=== PATIENT | male | born 1945 | race Caucasian/White ===

== ENCOUNTER → 2018-02-27 08:30 | Outpatient (CLI) | payer MEDICARE, BC, SELFPAY ==
--- NOTE | 2018-02-27 08:35 | ECHOCS_ITS ---
Reason For Study: Murmur Procedure This was a 2D Doppler, Color Flow transthoracic echocardiogram. Exam performed in department. Left Ventricle Normal LV size. Moderate concentric left ventricular hypertrophy. Left ventricular systolic function is normal. The estimated ejection fraction is 60 %. Stage 1 diastolic dysfunction. No regional wall motion abnormalities noted. Right Ventricle Normal RV size. Normal systolic function. Atria Normal left atrium. Normal right atrium. Mitral Valve Normal mitral valve. Tricuspid Valve Normal tricuspid valve. Mild (1+) tricuspid valve insufficiency. Pulmonary artery systolic pressure is 33 mmHg. Aortic Valve Trisinus/trileaflet aortic valve. Mild focal aortic valve calcification. Peak aortic valve gradient 39 mmHg. Mean aortic valve gradient 25 mmHg. Mild aortic stenosis. Calculated aortic valve area (continuity equation) is 1.3 cm2. Pulmonic Valve Normal pulmonic valve. Great Vessels Normal aortic root. The pulmonary artery is normal size. Normal inferior vena cava. Pericardium/Pleural No pericardial effusion. Medication Definity0.2ml given slow IV push to enhance endocardial definition. MMode/2D Measurements & Calculations LVIDd: 4.3 cm IVSd: 1.5 cm LVOT diam: 2.1 cm LVIDs: 2.8 cm LVPWd: 1.4 cm LVOT area: 3.4 cm2 RVDd: 3.7 cm FS: 34.4 % Ao root diam: 3.4 cm LAV(MOD-bp): 34.6 ml LVAd ap4: 34.0 cm2 LAV(MOD-bp) Indexed: 15.2 ml/m2 EDV(MOD-sp4): 101.9 ml LAV(MOD-sp2): 35.0 ml EDV(sp4-el): 108.0 ml LAV(MOD-sp4): 34.5 ml LVAs ap4: 20.1 cm2 ESV(MOD-sp4): 48.0 ml ESV(sp4-el): 48.3 ml EF(MOD-sp4): 52.9 % EF(sp4-el): 55.2 % SV(MOD-sp4): 53.8 ml SV(sp4-el): 59.7 ml LA A4 area: 14.7 cm2 RA A4 area: 14.6 cm2 Doppler Measurements & Calculations MV E max jose juan: 60.3 cm/sec Lat Peak E' Jose Juan: 7.1 cm/sec Med Peak E' Jose Juan: 4.5 cm/sec MV A max jose juan: 98.8 cm/sec E/E' lat: 8.5 E/E' med: 13.5 MV E/A: 0.61 Ao V2 max: 314.8 cm/sec LV V1 max: 123.2 cm/sec SV(LVOT): 100.8 ml Ao max P.7 mmHg LV V1 max P.1 mmHg Ao V2 mean: 242.0 cm/sec LV V1 mean P.7 mmHg Ao mean P.3 mmHg LV V1 mean: 91.2 cm/sec Ao V2 VTI: 70.4 cm LV V1 VTI: 29.5 cm EDUAR(I,D): 1.4 cm2 EDUAR(V,D): 1.3 cm2 PA V2 max: 108.8 cm/sec TR max jose juan: 271.2 cm/sec TR max P.4 mmHg Interpretation Summary Normal LV size. Moderate concentric left ventricular hypertrophy. Left ventricular systolic function is normal. The estimated ejection fraction is 60 %. Stage 1 diastolic dysfunction. Mild focal aortic valve calcification. Mild aortic stenosis. Calculated aortic valve area (continuity equation) is 1.3 cm2. Contrast injection was performed. Ordering Physician: Juan Kumari Referring Physician: Juan Kumari Performed By: Maren Atkins, ELIJAH, RVT
== END ==
PROVIDERS: Family Provider Family Medicine; PCP Family Medicine; Referring Provider Internal Medicine Cardiovascular Disease; Visit Provider Internal Medicine Cardiovascular Disease
DX: R07.9 Chest pain, unspecified (principal)
CPT/HCPCS: 93306; Q9957; A4216; C8929

== ENCOUNTER 2018-03-02 09:40 | Day surgery (SDC) | payer MEDICARE, BC, SELFPAY ==
[2018-02-27 16:00] LABS: Hematocrit 43.7 % (40-54); Hemoglobin 14.9 g/dl (13.0-16.5); Mean Corp Hgb Conc 34.1 g/gl (32-36); Mean Platelet Vol. 8.8 fl (6.2-12.0); Platelet Count 302 K/mm3 (150-450); RBC Distribution Width CV 13.1 % (11.6-14.6); RBC Distribution Width SD 43.8 fl (35.1-43.9); Red Blood Count 4.65 M/mm3 (4.6-6.2); Scan Indicated on CBC? Y/N NO
[2018-02-27 16:07] LABS: Anion Gap 7 (5-15); BUN 15 mg/dL (7-18); BUN/Creat Ratio 15.7 RATIO (10-20); Calcium,Total 8.5 mg/dL (8.5-10.1); Chloride 104 mmol/L (98-107); Creatinine, Serum 0.96 mg/dL (0.70-1.30); EST Glomerular Filtration Rate 83 mL/min (>60); Est Glom Filt Rate - Afr Amer 100 mL/min (>60); Estimated Creatinine Clearance 76.26 ml/min; Glucose 110 mg/dL (74-106); Potassium 3.9 mmol/L (3.5-5.1); Sodium Level 143 mmol/L (136-145)
--- NOTE | 2018-03-02 11:16 | CL.IE_ITS ---
Patient: RAVIN JONES Study Date: 03/02/2018 Performing: Juan Kumari MD : 1945 Age: 72 Gender: male PROCEDURES PERFORMED [id number] OF LOOP RECORDER INDICATIONS Syncope PROCEDURE DETAILS The patient was brought to the Catheterization Lab in the postabsorptive nonsedated state. Informed consent was obtained prior to the procedure. Local anesthetic was given subcutaneously to the left ayala bclavian region with Lidocaine 2%. Incision was made to the left subclavicular area. ICM Loop Recorde r was removed. Subcutaneous closure was completed with 3-0 Vicryl. Skin closure was completed with 4- 0 Vicryl. The patient tolerated the procedure well. Estimated Blood Loss: < 10 mls IMPLANTED / EX-PLANTED DEVICES DEVICE PARAMETERS CONCLUSIONS / RECOMMENDATIONS Device Conclusions: Successful removal of a patient activated loop recorder. Device Recommendations: Follow up with Primary Care Physician PROCEDURE MEDICATIONS Versed 1 mg IV Fentanyl 25 mcg IV Oxygen: 2 L/min via nasal cannula Signed By Juan Kumari MD On 03/02/2018 11:16:08 Juan Kumari MD
== END 2018-03-02 12:30 | disposition home or self-care (01) ==
LOC: CLSP 09:42
PROVIDERS: Family Provider Family Medicine; PCP Family Medicine; Referring Provider Internal Medicine Cardiovascular Disease; Visit Provider Internal Medicine Cardiovascular Disease
DX: I35.0 Nonrheumatic aortic (valve) stenosis (principal); I44.7 Left bundle-branch block, unspecified; I25.10 Atherosclerotic heart disease of native coronary artery without angina pectoris; G47.33 Obstructive sleep apnea (adult) (pediatric); R01.1 Cardiac murmur, unspecified; I48.92 Unspecified atrial flutter; I48.0 Paroxysmal atrial fibrillation; Z87.09 Personal history of other diseases of the respiratory system; Z95.9 Presence of cardiac and vascular implant and graft, unspecified; Z79.82 Long term (current) use of aspirin; Z79.899 Other long term (current) drug therapy; Z87.891 Personal history of nicotine dependence
CPT/HCPCS: 33284; 36415; 80048; 85027; 99152; 99153; J7040

== ENCOUNTER → 2018-04-29 09:21 | Outpatient (CLI) | payer MEDICARE, BC, SELFPAY ==
--- NOTE | 2018-04-29 09:26 | RAD_ITS ---
STUDY: X-RAY - RIGHT HAND REASON FOR EXAM: Male, 72 years old. Laceration secondary to injury of the right third digit. TECHNIQUE: 3 view(s) of the hand. COMPARISON: None. FINDINGS: Normal radiocarpal articulation. Normal distal radioulnar joint. Normal visualized carpal bones. Normal carpal articulations Normal carpometacarpal articulation of the thumb. Normal second through fifth carpometacarpal joints. Normal metacarpi. Normal metacarpophalangeal joint of the thumb. Normal interphalangeal joint of the thumb. Normal proximal and distal phalanges of the thumb. Normal metacarpophalangeal joints of the second through fifth fingers. Normal proximal and distal interphalangeal joints of the second through fifth fingers. Normal phalanges of the second through fifth fingers. Soft tissue laceration overlying the distal phalanx of the third digit. RAD/Hand Min 3 Views IMPRESSION: Soft tissue laceration overlying the distal phalanx of the third digit. No radiopaque foreign body is seen. Electronically Signed: Girma De La Garza MD at 9:57 EST Tel [phone], Service support ,
--- OUTSIDE RECORDS SUMMARY | 2018-06-24 16:42 | XMS RPT_ITS ---
:1945 Author Organization [place] Support Name Relationship Address Phone MANAS PATIÑO Unavailable [address] + [place] [address] SIDLE TRANSIT Unavailable [address] + [place] [address] [address] JULIO [address] + [place] [address] MANAS PATIÑO Unavailable [address] + [place] [address] SIDLE TRANSIT Unavailable [address] + [place] [address] [address]ANY[address] JULIO [address] + [place] [address] MANAS PATIÑO Unavailable [address] + [place] [address] SIDLE TRANSIT Unavailable [address] + [place] [address] DANYA JULIO [address] + [place] [address] MANAS PATIÑO Unavailable Unavailable + SIDLE TRANSIT Unavailable [address] + [place] [address] [address]ANY[address] JULIO [address] + [place] [address] MANAS PATIÑO Unavailable [address] + [place] [address] SIDLE TRANSIT Unavailable [address] + [place] [address] [address] J[address] + [place] [address] SIDLE TRANSIT Unavailable [address] + [place] [address] [address] J[address] + [place] [address] SIDLE TRANSIT Unavailable [address] + [place] [address] [address] + [place] [address] SIDLE TRANSIT Unavailable [address] + [place] [address] [address] + [place] [address] Care Team Providers Name Role Phone Nola Quintana Attending Unavailable Vidhya Vu Attending Unavailable [place], Orlando Attending Unavailable Anthony Rust Referring Unavailable Anthony Rust Primary Care Unavailable [place], Juan Attending Unavailable [place], [place] Referring Unavailable Anthony Rust Primary Care Unavailable [place], Juan Attending Unavailable Anthony Rust Primary Care Unavailable [place], Orlando Referring Unavailable [place], Juan Attending Unavailable [place], Juan Referring Unavailable [place], Juan Attending Unavailable [place], [place] Referring Unavailable Tono Michael Attending Unavailable Tono Michael Referring Unavailable Anthony Rust Primary Care Unavailable PROBLEMS PROBLEMS DATE TYPE CONDITION / CODE ATTENDING STATUS SOURCE 04/29/2018 Unknown S61.218A - Laceration Tono Michael Active [facility] without foreign body Community of other [facility] without damage to Repository nail, initial encounter / S61.218A(ICD-10) 03/02/2018 Unknown Z95.9 - Presence of [place], [place] Active [facility] cardiac and vascular Community implant and graft, Hospital unspecified / Repository Z95.9(ICD-10) 03/25/2018 Unknown R55 - Syncope and [place], Juan Active [facility] collapse / Community R55(ICD-10) Hospital Repository 03/24/2018 Unknown R07.9 - Chest pain, [place], [place] Active [facility] unspecified / Community R07.9(ICD-10) Hospital Repository 02/20/2018 Unknown I35.0 - Nonrheumatic [place], [place] Active [facility] aortic (valve) Community stenosis / Hospital I35.0(ICD-10) Repository 02/20/2018 Unknown I44.7 - Left Juan Kumari Active [facility] bundle-branch block, Community unspecified / Hospital I44.7(ICD-10) Repository 02/20/2018 Unknown I25.10 - [place], [place] Active [facility] Atherosclerotic heart Community disease of [facility] coronary artery Repository without angina pectoris / I25.10(ICD-10) PROCEDURES PROCEDURES No Procedure Records FoundRESULTS RESULTS HAND MIN 3 VIEWS Observed: 04/29/2018 Status: F Source: OMI 9:27 AM [facility] REPOSITORY [facility] Imaging Services [address] [place] [address] Hand Min 3 Views MR#: [id number] Acct: [id number] Name: RAVIN JONES Rep #: [id number] : 1945 M 72 From: Girma De La Garza MD PCP: Anthony Rust MD Status: REG CLI Study: Hand Min 3 Views Date of Exam: 04/29/18 Exam# [id number] Ordering Dr: Tono Michael ELECTRONIC OPERATOR-C STUDY: X-RAY - RIGHT HAND REASON FOR EXAM: Male, 72 years old. Laceration secondary to injury of the right third digit. TECHNIQUE: 3 view(s) of the hand. COMPARISON: None. FINDINGS: Normal radiocarpal articulation. Normal distal radioulnar joint. Normal visualized carpal bones. Normal carpal articulations Normal carpometacarpal articulation of the thumb. Normal second through fifth carpometacarpal joints. Normal metacarpi. Normal metacarpophalangeal joint of the thumb. Normal interphalangeal joint of the thumb. Normal proximal and distal phalanges of the thumb. Normal metacarpophalangeal joints of the second through fifth fingers. Normal proximal and distal interphalangeal joints of the second through fifth fingers. Normal phalanges of the second through fifth fingers. Soft tissue laceration overlying the distal phalanx of the third digit. RAD/Hand Min 3 Views IMPRESSION: Soft tissue laceration overlying the distal phalanx of the third digit. No radiopaque foreign body is seen. Electronically Signed: Girma De La Garza MD at 9:57 EST Tel [phone], Service support , CC: JUANPABLO Michael; Anthony Rust MD [employer]: Signed CBC-COMPLETE BLOOD CNT Collected: 03/02/2018 Status: F Source: OMI NO DIFF 11:30 AM [facility] REPOSITORY TYPE CODE TESTS RESULT OUT OF RANGE REFERENCE UNITS LAB L100.1000 4.4-11.0 K/mm3 Normal WBC 5.0 LAB L100.1200 4.6-6.2 M/mm3 Normal RBC 4.65 LAB L100.1300 13.0-16.5 g/dl Normal HGB 14.9 LAB L100.1400 40-54 % Normal HCT 43.7 LAB L100.1500 80-94 fL Normal MCV 94.0 LAB L100.1600 27.0-32.0 pg Normal MCH 32.0 LAB L100.1700 32-36 g/gl Normal MCHC 34.1 LAB L100.1810 11.6-14.6 % Normal RDW CV 13.1 LAB L100.1820 35.1-43.9 fl Normal RDW SD 43.8 LAB L100.1900 150-450 K/mm3 Normal PLT 302 LAB L100.2000 6.2-12.0 fl Normal MPV 8.8 Performed By: #### L100.0500 #### [facility] [place], [address] BASIC METABOLIC Collected: 03/02/2018 Status: F Source: [facility]MI PROFILE (BMP) 11:30 AM [facility] REPOSITORY TYPE CODE TESTS RESULT OUT OF RANGE REFERENCE UNITS LAB L501.0100 74-106 mg/dL High GLU 110 Result Comment: Fasting Glucose result from 100 to 125 mg/dL suggests IMPAIRED HOMEOSTASIS per A.D.A. criteria. Please note revised GLUCOSE reference range effective 2017. LAB L501.1000 7-18 mg/dL Normal BUN 15 LAB L501.1100 0.70-1.30 mg/dL Normal CREAT,SERUM 0.96 Result Comment: The validity of the calculated GFR AND GFRAA in patients over 70 years has not been determined. Clinical correlation is essential. LAB L501.1110 >60 mL/min Normal EST GFR 83 Result Comment: Non- GFR Calc LAB L501.1115 >60 mL/min Normal EST GFR - AA 100 Result Comment: GFR Calc LAB L501.1255 ml/min Normal Estimated CRCL 76.26 LAB L501.1300 10-20 RATIO Normal BUN/CRE 15.7 LAB L501.2200 8.5-10 mg/dL Normal .1 CA 8.5 LAB L501.5300 136-14 mmol/L Normal 5 NA 143 LAB L501.5600 3.5-5. mmol/L Normal 1 K 3.9 LAB L501.5900 98-107 mmol/L Normal CL 104 LAB L501.6100 21.0-3 mmol/L Normal 2.0 CO2 32.0 LAB L501.6200 5-15 Normal GAP 7 Performed By: #### L500.2500 #### [facility] [address] [facility] [place], [address] ECHO, COMPLETE W/ Observed: 02/27/2018 Status: F Source: FRASER CONTRAST 5:01 PM [facility] REPOSITORY [facility] Cardiovascular Services [address] [place] [address] Echo Complete W/ Contrast 02/27/18 0856 MR#: [id number] Acct: [id number] Name: RAVIN JONES Rep #: [id number] : 1945 72 From: Juan Kumari MD Attending Dr: Juan Kumari MD Status: REG CLI Ordering Dr: Juan Kumari MD Date: 02/27/18 Location: [facility] Sex: M C Admitted: Reason For Study: Murmur Procedure This was a 2D Doppler, Color Flow transthoracic echocardiogram. Exam performed in department. Left Ventricle Normal LV size. Moderate concentric left ventricular hypertrophy. Left ventricular systolic function is normal. The estimated ejection fraction is 60 %. Stage 1 diastolic dysfunction. No regional wall motion abnormalities noted. Right Ventricle Normal RV size. Normal systolic function. Atria Normal left atrium. Normal right atrium. Mitral Valve Normal mitral valve. Tricuspid Valve Normal tricuspid valve. Mild (1+) tricuspid valve insufficiency. Pulmonary artery systolic pressure is 33 mmHg. Aortic Valve Trisinus/trileaflet aortic valve. Mild focal aortic valve calcification. Peak aortic valve gradient 39 mmHg. Mean aortic valve gradient 25 mmHg. Mild aortic stenosis. Calculated aortic valve area (continuity equation) is 1.3 cm2. Pulmonic Valve Normal pulmonic valve. Great Vessels Normal aortic root. The pulmonary artery is normal size. Normal inferior vena cava. Pericardium/Pleural No pericardial effusion. Medication Definity0.2ml given slow IV push to enhance endocardial definition. MMode/2D Measurements AND Calculations LVIDd: 4.3 cm IVSd: 1.5 cm LVOT diam: 2.1 cm LVIDs: 2.8 cm LVPWd: 1.4 cm LVOT area: 3.4 cm2 RVDd: 3.7 cm FS: 34.4 % Ao root diam: 3.4 cm LAV(MOD-bp): 34.6 ml LVAd ap4: 34.0 cm2 LAV(MOD-bp) Indexed: 15.2 ml/m2 EDV(MOD-sp4): 101.9 ml LAV(MOD-sp2): 35.0 ml EDV(sp4-el): 108.0 ml LAV(MOD-sp4): 34.5 ml LVAs ap4: 20.1 cm2 ESV(MOD-sp4): 48.0 ml ESV(sp4-el): 48.3 ml EF(MOD-sp4): 52.9 % EF(sp4-el): 55.2 % SV(MOD-sp4): 53.8 ml SV(sp4-el): 59.7 ml LA A4 area: 14.7 cm2 RA A4 area: 14.6 cm2 Doppler Measurements AND Calculations MV E max jose juan: 60.3 cm/sec Lat Peak E' Jose Juan: 7.1 cm/sec Med Peak E' Jose Juan: 4.5 cm/sec MV A max jose juan: 98.8 cm/sec E/E' lat: 8.5 E/E' med: 13.5 MV E/A: 0.61 Ao V2 max: 314.8 cm/sec LV V1 max: 123.2 cm/sec SV(LVOT): 100.8 ml Ao max P.7 mmHg LV V1 max P.1 mmHg Ao V2 mean: 242.0 cm/sec LV V1 mean P.7 mmHg Ao mean P.3 mmHg LV V1 mean: 91.2 cm/sec Ao V2 VTI: 70.4 cm LV V1 VTI: 29.5 cm EDUAR(I,D): 1.4 cm2 EDUAR(V,D): 1.3 cm2 PA V2 max: 108.8 cm/sec TR max jose juan: 271.2 cm/sec TR max P.4 mmHg Interpretation Summary Normal LV size. Moderate concentric left ventricular hypertrophy. Left ventricular systolic function is normal. The estimated ejection fraction is 60 %. Stage 1 diastolic dysfunction. Mild focal aortic valve calcification. Mild aortic stenosis. Calculated aortic valve area (continuity equation) is 1.3 cm2. Contrast injection was performed. Ordering Physician: Juan Kumari Referring Physician: Juan Kumari Performed By: Manas Atkins, ELIJAH, RVT 02/27/18 1700 Date Juan Kumari MD CC: Juan Kumari MD; Anthony Rust MD Date Dictated: 02/27/18 0856 Date Transcribed: 02/27/181699 [employer]: Signed CARDIOLOGY VISIT Observed: 02/20/2018 Status: F Source: FRASER REPORT 3:23 PM [facility] REPOSITORY [facility] [address] [place] [address] OFFICE VISIT Date of Service: 02/20/18 MR#: [id number] Acct: [id number] Name: RAVIN JONES Rep #: [id number] : 1945 Provider: Juan Kumari MD Age/Sex: 72/M [place] [facility] Status: Signed HPI HPI Chief Complaint: Follow up Details: RAVIN JONES, is a 72 M who presents to the office today for follow-up visit. Was referred to us by Dr. Muniz. He remember that we had seen him previously and last in 2016 where at that time he was noted to have mild chest discomfort he underwent a cardiac catheterization done which demonstrated minimal nonobstructive coronary artery disease. He has been doing quite well but has been seen Dr. Muniz for obstructive sleep apnea and was noted to have a heart murmur. He has had no neck arm or jaw discomfort suggest angina no dizziness or diaphoresis no near syncope or syncope. His been compliant with his medications. He also do remember that he does have an implantable loop recorder in place which has been there since 2011. His physical exam today demonstrates clear lung castellanos regular rate and rhythm a 2/6 systolic murmur noted left sternal border and no pedal edema. Intake Vital Signs02/20/18 Height 5 ft 11 in 02/20/18 Weight: 239 lb 02/20/18 Body Mass Index (BMI) 33.3 02/20/18 Blood Pressure 130/72 02/20/18 Respiratory Rate 18 02/20/18 Pulse Rate 74 Intake Visit Reasons: Ref'd by Flavio for CP, not a new pt Allergies No Known Allergies Allergy (Verified 02/20/18 14:43) Medications Venlafaxine HCl [Effexor] 75 mg PO BID 11/30/15 [History Confirmed 08/12/17] Aspirin [Aspirin, Baby] 81 mg PO DAILY@0800 12/08/15 [History Confirmed 08/12/17] metoprolol tartrate 50 mg tablet 50 mg PO BID #60 tab 06/04/17 [Rx Confirmed 08/12/17] [facility] Medical History Nonrheumatic mitral (valve) stenosis (Chronic) Atrial flutter (Chronic) Paroxysmal atrial fibrillation (Chronic) Atherosclerotic heart disease of [place] coronary artery without angina pectoris (Chronic) Non-rheumatic aortic stenosis (Chronic) Hyperlipidemia (Chronic) Left bundle branch block (Chronic) Syncope (Chronic) Atrial fibrillation and flutter (Chronic) Hemothorax (Resolved 08/2011) Surgical History Cardiac device in situ (Resolved 08/21/11) H/O hemorrhoidectomy (Chronic) History of left heart catheterization (Chronic 12/01/15) Other specified cardiac device in situ (Chronic 08/21/11) excision lung nodule (Chronic) History of electrophysiologic study (Resolved 08/21/11) Family History Father CAD (coronary artery disease) Social History Smoking Status: Former smoker alcohol intake: never ROS Const Const: Negative for fatigue, weakness, difficulty sleeping, frequent falls, excessive sweating or headache(s) Eyes Eyes: Negative for loss of peripheral vision, transient loss of vision, blurry vision, tunnel vision or double vision ENT ENT: Negative for headache(s), dizziness, Nosebleed/epistaxis or balance problems Cardio Chest Pain: Yes Palpitations: No Edema: None Muscle aches with walking: None Resp Respiratory: Negative for SOB with activity, SOB at rest, SOB orthopnea\SOB lying down, paroxysmal nocturnal dyspnea or Cough GI GI: Negative nausea, heartburn, black,tarry stools or vomiting : Negative for hematuria Musc Musc: Negative for balance problems, muscle aches/ myalgia, muscle weakness or joint pain Skin Skin: Negative non-healing lesions, unusual bruising or rash Neuro Neuro: Negative for weakness, frequent falls, headache(s), blurry vision, double vision, dizziness, lightheadedness, orthostatic symptoms, near syncope, syncope or lack of coordination Wilber Hematologic/Lymphatic: Negative for easy bruising or easy bleeding Endo Endo: Negative for fatigue, excessive sweating or increased thirst/drinking Psych Psych: Negative for anxiety or depression Allergy Allergy/Immunology: Negative for hives, Negative for rash Cardiology Exam Const Appearance: cooperative, healthy appearing, well developed, well groomed and no acute distress Nutritional Appearance: well nourished and average body habitus Orientation: alert, awake and oriented x3 Head Head: normal to inspection, normocephalic and atraumatic Ears: hearing grossly normal bilaterally and external ears normal Nose: external nose normal, nasal mucous membranes and turbinates normal, nares normal, septum normal, no nasal discharge Face and Sinus: face symmetric Mouth: oral mucosae normal, tongue normal, oropharynx normal and moist mucous membranes Teeth and gingiva: dentition normal Throat: posterior oropharynx normal, tonsils normal and uvula midline Eyes General: appearance normal, both eyes and all related structures Eyelids: eyelids normal Conjunctivae: conjunctivae normal Pupils: PERRL, normal by confrontation and accommodation normal EOM: EOM intact bilaterally Neck Neck: normal visual inspection, trachea midline and no JVD JVD: +5 Carotids: normal carotid upstroke and bounding pulses Chest Chest inspection: normal inspection of the chest, symmetric chest movement and normal respiratory effort Auscultation: Bilateral: Clear to Auscultation Cardio Palpation: normal PMI Rate: regular rate Rhythm: regular rhythm Heart sounds: S1 normal and S2 normal Murmur: Grade 2/6, harsh, early systolic and LLSB GI GI: normal to inspection, soft, no hepatosplenomegaly and bowel sounds present Neuro General: alert, awake, oriented x3, no focal sensory deficit, gait normal and moves all extremities Skin Skin: no rashes or lesions noted Extremities Pulses: Normal: Right Femoral Pulse, Left Femoral Pulse, Right Dorsalis Pedis Pulse, Left Dorsalis Pedis Pulse, Right Posterior Tibial Pulse, Left Posterior Tibial Pulse, Right Radial Pulse, Left Radial Pulse Lower Extremity Edema: None: Bilateral Musculoskel Musculoskeletal: No joint tenderness Psych Psychological: normal affect Assessment AND Plan 1. 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 His last echocardiogram which was performed in 2016 demonstrated an ejection fraction of 50% with 1+ tricuspid regurgitation and mild aortic stenosis with a mean aortic valve gradient of 20 mmHg. My recommendation is for us to repeat the above to make sure that there is no worsening. 2. Left bundle branch block I44.7 Plan He does have a chronic left bundle branch block which we will continue to monitor. It was also manifest on his echocardiogram with mild IVCD wall motion abnormality noted. 3. Atherosclerotic heart disease of [place] coronary artery without angina pectoris I25.10 Non obstructive CAD per left heart cath 12/01/15 Plan He does have mild nonobstructive coronary artery disease by cardiac catheterization in 2016 he has not had any angina. It appears that the chest pain he has is rather atypical and at this time I would not suggest any further workup. 4. Cardiac device in situ Z95.9 Loop Recorder implant 08/21/2011 Plan He does have an implantable loop recorder which she has not interrogated in a while. It was implanted in 2011 and more than likely the battery life is . I will arrange for explant of the above. He has not had any syncopal episodes since. 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 Year (park manager) Coding Level of Care Code Off vis,est,level 4 Diagnoses Non-rheumatic aortic stenosis I35.0 Left bundle branch block I44.7 Atherosclerotic heart disease of [place] coronary artery without angina pectoris I25.10 Cardiac device in situ Z95.9 Coding Level of Care Code Off vis,est,level 4 Diagnoses Non-rheumatic aortic stenosis I35.0 Left bundle branch block I44.7 Atherosclerotic heart disease of [place] coronary artery without angina pectoris I25.10 Cardiac device in situ Z95.9 02/20/18 1523 <Electronically signed by Juan Kumari MD> Date Juan Kumari MD Cosigner Signature: Date (if applicable) CC: Anthony Rust MD ALLERGIES ALLERGIES DATE TYPE / CODE NAME / CODE REACTION SEVERITY SOURCE 02/20/2018 Drug No Known Unknown [facility] Allergy/4160 Allergies/F00 [facility] [address]12(SNOMED [id number](RXNOR Repository CT) M) ENCOUNTERS ENCOUNTERS ADMIT/DISCHARGE ACCOUNT ADMITTING ENCOUNTER LOCATION SOURCE NUMBER CLASS 04/29/2018 [id number] Ambulatory [facility] 1 [facility] ing:MTRAD Repository 03/02/2018/ [id number] Ambulatory [facility] 8 6 [facility] ing:CLSP Repository 03/02/2018/ [id number] Ambulatory BMSBuilding:W [place] 8 2 [facility] Repository 02/27/2018 [id number] Ambulatory [facility] [place] 3 [facility] ing:[facility]S Repository 02/27/2018 [id number] Ambulatory BMSBuilding:W [place] 1 [facility] Repository 02/20/2018/ [id number] Ambulatory BMSBuilding:B [facility] 8 7 [facility] Repository 02/20/2018 [id number] Ambulatory BMSBuilding:B [facility] 2 [facility] Repository 08/15/2017 [id number] Ambulatory BMSBuilding:B [facility] [place] 5 [facility] Repository PAYERS PAYERS ENCOUNTER GUARANTOR PAYER SUBSCRIBER SOURCE 04/29/2018 RAVIN Zaman Primary RAVIN [place] [id number] Insurance:MEDICARE WINKLERDOB: Community [address] PART A [facility] [id number] Number: Repository [address]Txt: 330 [id number] [phone] () Date:2018-04-29 04/29/2018 Secondary RAVIN E [place] Insurance:ANTHEMPolic WINKLERDOB: Community y Number: [id number] Hospital [id number] Repository Date:6197-08-18HS [address] [place] [address]LP: 04/29/2018 Tertiary NOT GIVENUNK [facility] Insurance:SELF PAY [facility] Number: Effective Repository Date:2018-04-29 03/02/2018 RAVIN Zaman Primary RAVIN E [place] [id number] Insurance:MEDICARE WINKLERDOB: Community [address] PART A [facility] [id number] Number: Repository [id number]: 330 [id number] [phone] () Date:2018-02-20 03/02/2018 Secondary RAVIN E [place] Insurance:ANTHEMPolic WINKLERDOB: Community y Number: [id number] Hospital [id number] Repository Date:4850-68-66JC [address] [place] [address] 84[address]UW: 03/02/2018 Tertiary NOT GIVENUNK [facility] Insurance:SELF PAY [facility] Number: Effective Repository Date:2018-02-20 03/02/2018 RAVIN Zaman Primary RAVIN E [place] [id number] Insurance:MEDICARE WINKLERDOB: Community [address] PART A [facility] [id number] Number: Repository [address]Cib: [phone] [id number] [phone] (HP) Date:2018-02-20 03/02/2018 Secondary RAVIN E [facility] Insurance:ANTHEMPolic WINKLERDOB: Community y Number: [id number] Repository Date:2629-51-05EF [address] [place] [address]RG: 03/02/2018 Tertiary NOT GIVENUNK [place] Insurance:SELF PAY [facility] Number: Effective Repository Date:2018-03-02 02/27/2018 RAVIN E Primary RAVIN E [place] [id number] Insurance:MEDICARE WINKLERDOB: Community [address] PART A [facility] [id number] Number: Repository [id number]: 330 [id number] [phone] () Date:2018-02-20 02/27/2018 Secondary RAVIN E [facility] Insurance:ANTHEM WINKLERDOB: [facility] [id number] Hospital Number: Repository [id number] Date:0017-76-07XA [address] [place] [address]16[address]UZ: 02/27/2018 Tertiary NOT GIVENUNK [facility] Insurance:SELF PAY [facility] Number: Effective Repository Date:2018-02-20 02/27/2018 RAVIN E Primary RAVIN E [facility] [id number] Insurance:MEDICARE WINKLERDOB: Community [address] PART A [facility] [id number] Number: Repository [id number]: 330 [id number] [phone] () Date:2018-02-20 02/27/2018 Secondary RAVIN E [facility] Insurance:ANTHEM WINKLERDOB: [facility] [id number] Hospital Number: Repository [id number] Date:4931-36-93AS [address], [place] [address]AT: 02/27/2018 Tertiary NOT GIVENUNK [place] Insurance:SELF PAY [facility] Number: Effective Repository Date:2018-02-27 02/20/2018 RAVIN E Primary RAVIN E [facility] [id number] Insurance:MEDICARE WINKLERDOB: Community [address] PART A [facility] [id number] Number: Repository [id number]: 330 [id number] [phone] (HP) Date:2018-02-12 02/20/2018 Secondary RAVIN E [place] Insurance:ANTHEM WINKLERDOB: Community [facility] [id number] Hospital Number: Repository [id number] Date:8170-37-27FQ [address], [place] [address]EJ: 02/20/2018 Tertiary NOT GIVENUNK [place] Insurance:SELF PAY [facility] Number: Effective Repository Date:2018-02-17 02/20/2018 RAVIN E Primary RAVIN E [facility] [id number] Insurance:MEDICARE WINKLERDOB: Community [address] PART A [facility] [id number] Number: Repository [address]Lqi: 330 [id number] [phone] () Date:2018-02-20 02/20/2018 Secondary RAVIN Junie [facility] Insurance:AARPPolicy WINKLERDOB: Community Number: [id number] Hospital [id number] Repository Date:1794-57-80DM [address], [place] [address]EL: 02/20/2018 Tertiary NOT GIVENUNK [facility] Insurance:SELF PAY [facility] Hospital Number: Effective Repository Date:2018-02-20 08/15/2017 RAVIN E Primary RAVIN E [facility] [id number] Insurance:MEDICARE WINKLERDOB: Community [address] PART A [facility] [id number] Number: Repository [id number]: [phone] [phone] (HP) Date:2017-08-15 08/15/2017 Secondary [place] [address] [place] Insurance:AARPPolicy WINKLERDOB: Community Number: [id number] [facility] [id number] Repository Date:[id number], [place] [id number]: 08/15/2017 Tertiary NOT GIVENUNK Omi Insurance:SELF PAY [facility] Number: Effective Repository Date:2017-08-15
== END ==
PROVIDERS: Family Provider Family Medicine; PCP Family Medicine; Referring Provider Nurse Practitioner Family; Visit Provider Nurse Practitioner Family
DX: S61.212A Laceration without foreign body of right middle finger without damage to nail, initial encounter (principal)
CPT/HCPCS: 73130

== ENCOUNTER → 2018-12-15 | Outpatient (CLI) | payer MEDICARE, BC, SELFPAY ==
[2018-02-20 14:43] VITALS: BMI 33.3
--- NOTE | 2018-12-15 11:25 | RAD_ITS ---
STUDY: X-RAY - SOFT TISSUE NECK REASON FOR EXAM: Male, 73 years old. Sleep apnea. Snoring. TECHNIQUE: AP and lateral view(s) of the neck were obtained. COMPARISON: None. FINDINGS: Normal visualized nasopharynx, oropharynx, hypopharynx. The airway measures 16.9 mm from the posterior base of the tongue to the anterior C3 prevertebral soft tissues. Normal epiglottis. Normal visualized subglottic tracheal air column. Normal prevertebral soft tissue structures. Normal visualized osseous structures. The soft tissue structures are unremarkable. RAD/Neck for Soft Tissue IMPRESSION: Normal x-ray soft tissue neck. Electronically Signed: Girma De La Garza, at 14:27 EDT , Service support ,
== END | disposition home or self-care (01) ==
PROVIDERS: Family Provider Family Medicine; PCP Family Medicine; Referring Provider Otolaryngology Otolaryngology/Facial Plastic Surgery; Visit Provider Otolaryngology Otolaryngology/Facial Plastic Surgery
DX: G47.30 Sleep apnea, unspecified (principal); R06.83 Snoring
CPT/HCPCS: 70360

== ENCOUNTER 2019-01-14 05:49 | Day surgery (SDC) | payer MEDICARE, BC, SELFPAY ==
[2019-01-14] VITALS (7 sets, daily range): BP systolic 123–144; BP diastolic 65–82; PULSE 56–72; RESP 16–18; TEMP 36.2; O2SAT 96–100; BMI 33.9
[2019-01-14] MEDS: Mixture 30 ML Bottle TOPICAL (07:50)
[2019-01-14] MEDS: Oxymetazoline 0.05% 1 SPRAY SPRAY.BTL 15 SPRAY (07:50)
--- NOTE | 2019-01-14 08:08 | DCINST_ITS ---
You will use the following diet at home:: No restrictions Discharge Activity: Return to Normal Activity - rinse nasal passages with saline spray several times per day and as desired. Allergies/Adverse Reactions: Allergies No Known Allergies Allergy (Verified 02/20/18 14:43) Medications to take at Discharge Venlafaxine HCl [Effexor] 75 mg PO BID 11/30/15 Aspirin [Aspirin, Baby] 81 mg PO DAILY@0800 12/08/15 metoprolol tartrate 50 mg tablet 50 mg PO BID #60 tab 06/04/17 Albuterol Inhaler [Ventolin Hfa (SP)] 1 - 2 puff INHALATION Q6H PRN PRN 01/13/19 Famotidine [Pepcid AC] 20 mg PO PRN PRN 01/13/19 Primary Care Physician: Anthony Rust MD [Primary Care Provider] - Test Results: Test results from this visit will be discussed in further detail at your follow- up appointment, if applicable. Please Follow Up With: Vaughn Bourne MD - follow up in about 2 weeks, call for appointment time
--- NOTE | 2019-01-14 09:23 | OP.PCM_ITS ---
Report of Operation Date of Procedure: 01/14/19 Pre-Operative Diagnosis: Nasal obstruction secondary to turbinate hypertrophy Post-Operative Diagnosis: Same Surgery/Procedure Performed:: Therapeutic outfracture and subsequent submucosal cautery of inferior turbinates using Kwan bipolar probe Anesthesiologist: Mickey James CRNA Estimated Blood Loss (mL): Negligible Description of Procedure: The patient was transported to the operating room and placed on the OR table in the supine position. After the administration of some intravenous sedation the nasal cavity was inspected. Turbinates were very hypertrophic and swollen. Application of Afrin nasal spray brought about some vasoconstriction. Thereafter a solution of Yusef-Synephrine Xylocaine was sprayed into the nasal chamber to obtain topical anesthetic effects. 1% Xylocaine with epinephrine 1- 100,000 was then used to infiltrate each inferior turbinate. A total of 1.5 mL were used. Nasal cavity was then reinspected. The airway was greatly improved by the decongestant effects. The septum was fairly straight. With a large [place] elevator each inferior turbinate was then laterally outfractured into the inferior meatus. The Kwan bipolar probe was then used to accomplish submucosal cautery. The probe was placed into the anterior aspect of the inferior turbinate and as current was applied blanching of the tissues took place. The probe was used in the mid portion as well as the posterior tips of the inferior turbinate. The 0 degree endoscope was used for visual guidance. The contralateral inferior turbinate was then treated in similar fashion and the procedure was terminated. The patient tolerated the procedure well, did not sustain any intraoperative anesthetic or surgical complication, was taken to the PACU where he was noted to be in satisfactory condition. Vaughn Bourne MD
== END 2019-01-14 10:16 | disposition home or self-care (01) ==
LOC: SDC 05:50 → AC 05:51
PROVIDERS: Family Provider Family Medicine; PCP Family Medicine; Referring Provider Otolaryngology Otolaryngology/Facial Plastic Surgery; Visit Provider Otolaryngology Otolaryngology/Facial Plastic Surgery
PROC: (CPT 30802; principal; 2019-01-14 07:15)
DX: J34.3 Hypertrophy of nasal turbinates (principal); G47.33 Obstructive sleep apnea (adult) (pediatric); J45.909 Unspecified asthma, uncomplicated; F32.9 Major depressive disorder, single episode, unspecified; I48.91 Unspecified atrial fibrillation; K21.9 Gastro-esophageal reflux disease without esophagitis; Z79.82 Long term (current) use of aspirin; Z79.899 Other long term (current) drug therapy
CPT/HCPCS: 30802; J7120

== ENCOUNTER → 2020-05-03 08:39 | Outpatient (CLI) | payer MEDICARE, BC, SELFPAY ==
[2019-02-23 08:48] VITALS: BMI 34.0
--- NOTE | 2020-05-03 08:47 | US_ITS ---
STUDY: THYROID ULTRASOUND REASON FOR EXAM: Male, 74 years old. NODULE FELT BY DOCTOR TECHNIQUE: Ultrasound evaluation of the thyroid was performed with real-time and static vega-scale imaging. COMPARISON: None. FINDINGS: RIGHT LOBE: The right lobe of the thyroid gland measures 4.1 x 1.7 x 1.7 cm. There is a homogeneous echotexture. There are no demonstrated solid, cystic or complex lesions. LEFT LOBE: The left lobe of the thyroid gland measures 4.3 x 1.4 x 1.8 cm. There is a homogeneous echotexture. There are no demonstrated solid, cystic or complex lesions. ISTHMUS: The isthmus measures 5 mm. The regional lymph nodes are normal. US/Thyroid IMPRESSION: No solid or cystic thyroid nodules. Electronically Signed: Kenn Ware MD ([place]) at 12:28 EST , Service support ,
[2020-05-03 12:39] LABS: Absolute Lymphocyte Count 1.23 X10^3/uL (0.83-4.51); Absolute Neutrophil Count 2.6 X10^3/uL (2.0-7.7); Basophil# 0.05 X10^3/uL; Basophil% 1.1 % (0-1); Eosinophils% 2.2 % (0-5); Hematocrit 45.8 % (40-54); Hemoglobin 15.1 g/dL (13.0-16.5); Lymphocyte # 1.23 X10^3/ul (4.0); Lymphocyte % 27.3 % (19-41); Mean Corpuscular Hgb 31.9 pg (27.0-32.0); Mean Corpuscular Volume 96.8 fL (80-94); Mean Platelet Vol. 9.2 fl (6.2-12.0); Monocyte# 0.53 X10^3/uL; Monocyte% 11.8 % (0-10); NRBC Flagged by Analyzer 0 % (0-5); Neutrophil # 2.59 X10^3/uL (2.7-7.7); Neutrophil % 57.4 % (47-70); Platelet Count 308 K/mm3 (150-450); RBC Distribution Width CV 12.7 % (11.6-14.6); RBC Distribution Width SD 45.2 fl (35.1-43.9); Red Blood Count 4.73 M/mm3 (4.6-6.2); White Blood Count 4.5 K/mm3 (4.4-11.0)
[2020-05-03 13:13] LABS: ALB/GLOB Ratio 0.9 RATIO (0.9-2.4); AST(SGOT) 29 U/L (15-37); Alanine Aminotransfer ALT/SGPT 33 U/L (16-61); Albumin, Serum 3.5 g/dL (3.2-5.0); Alkaline Phosphatase 94 U/L (45-117); Anion Gap 5 (5-15); BUN 18 mg/dL (7-18); BUN/Creat Ratio 17.5 RATIO (10-20); Calcium,Total 8.6 mg/dL (8.5-10.1); Chloride 106 mmol/L (98-107); Cholesterol 222 mg/dL (200); Creatinine, Serum 1.03 mg/dL (0.70-1.30); EST Glomerular Filtration Rate 75 mL/min (>60); Est Glom Filt Rate - Afr Amer 91 mL/min (>60); Globulin 3.9 g/dL (2.2-4.2); Glucose 92 mg/dL (74-106); High Density Lipoprotein 43 mg/dL; Magnesium 2.2 mg/dL (1.6-2.6); Potassium 4.3 mmol/L (3.5-5.1); Protein, Total 7.4 g/dL (6.4-8.2); Sodium Level 138 mmol/L (136-145); T4 Free Direct 0.75 ng/dL (0.76-1.46); Thyroid Stim Hormone (TSH) 1.26 uIU/mL (0.358-3.74); Triglycerides 165 mg/dL; Very Low Density Lipoprotein 33 mg/dL (5-40)
== END ==
PROVIDERS: PCP Family Medicine; Referring Provider Family Medicine; Visit Provider Family Medicine
DX: E04.1 Nontoxic single thyroid nodule (principal); I48.91 Unspecified atrial fibrillation; I25.10 Atherosclerotic heart disease of native coronary artery without angina pectoris
CPT/HCPCS: 36415; 76536; 80053; 80061; 83735; 84439; 84443; 85025

== ENCOUNTER 2020-09-21 21:07 | Emergency (ER) | payer MEDICARE, BC, SELFPAY ==
[2019-02-23 08:48] VITALS: BMI 34.0
[2020-09-21 21:08] VITALS: BP 150/94; PULSE 79; RESP 15; TEMP 36.3; O2SAT 94; BMI 29.2
[2020-09-21 21:10] VITALS: BP 150/94; PULSE 79; RESP 15; TEMP 36.3; O2SAT 94
--- NOTE | 2020-09-21 21:29 | ED.VIS.GEN ---
History of Present Illness Chief Complaint: Flank Pain Informant: Patient Narrative: 74-year-old male presenting with right lower quadrant pain. He describes it as one focal area in the right lower quadrant. He states that it initially started about a week ago and was near his umbilicus. He states that his pain is now sharp and intermittent. There is no radiation of the pain. He does not have nausea or vomiting. He denies diarrhea or constipation. He denies dysuria or hematuria. He has no history of kidney stones. He denies any fever but does admit to some chills. - Past Medical History (1) Hyperlipidemia Status: Chronic (2) Non-rheumatic aortic stenosis Status: Chronic (3) Nonobstructive atherosclerosis of coronary artery Status: Chronic (4) Paroxysmal atrial fibrillation Status: Chronic (5) Paroxysmal atrial flutter Status: Chronic Past Medical History - Allergies and Home Meds Allergies/Adverse Reactions: Allergies No Known Allergies Allergy (Verified 02/23/19 08:48) Primary Care Physician: Anthony Reyes MD [Primary Care Provider] - Prior records reviewed: Yes Past Medical History: - - Reviewed in problem list Surgical History: noncontributory Lives: Spouse/ Significant Other Smoking Status: Unknown if ever smoked Alcohol: None Drugs: None Review of Systems General: Reports: Chills. Denies: Fever, Malaise Eyes: Denies: Visual changes - bilaterally, Diplopia ENT: Denies: Rhinorrhea, Sore throat Cardiovascular: Denies: Chest pain, Palpitations Respiratory: Denies: Dyspnea, Cough, Dyspnea on exertion Gastrointestinal: Reports: Abdominal pain. Denies: Nausea, Vomiting, Diarrhea, Constipation, Melena, Hematochezia Genitourinary: Denies: Dysuria, Hematuria Musculoskeletal: Denies: Myalgias, Arthralgias Skin: Denies: Rash, Abscess Neurological: Denies: Headache, Weakness Psych: Denies: Depression, Anxiety Physical Exam Vital Signs/Narrative: Vital Signs Temp Pulse Resp BP Pulse Ox 09/21/20 21:10 97.3 F L 79 15 150/94 H 94 09/21/20 21:08 97.3 F L 79 15 150/94 H 94 Inital Vital Signs reviewed: Yes General: Well nourished, No Acute Distress Head: Normocephalic, Atraumatic Eyes: Perrl, EOMI. Negative for: Pale conjunctiva, Scleral icterus ENT: Moist mucous membranes, No rhinorrhea Cardiovascular: Regular rate, Regular rhythm Respiratory: No distress, CTA bilaterally Abdomen: Soft, Nondistended, Tender - Tenderness to palpation in the right lower quadrant. Back: Negative for: CVA tenderness - No CVA tenderness, Spinal tenderness Extremities: Nontender, No edema Skin: Normal color, No rash Neurological: Alert, Oriented x3, Cranial nerves II-XII grossly intact, Normal Strength, Normal Sensation Psychological: Normal affect, Normal Mood Diagnostic/Tx/Re-eval Clinical Impression(s) from Imaging Studies Abdomen/Pelvis CT 09/21/20 21:59 IMPRESSION: Gallstone. No evidence of acute cholecystitis. Remainder is within normal limits. Normal appendix. Electronically Signed: Tera Schuster DO at 23:02 EDT Tel , Service support , Laboratory Data 09/21/20 09/21/20 09/21/20 21:20 21:40 21:40 WBC 5.6 RBC 4.68 Hgb 14.2 Hct 43.9 MCV 93.8 MCH 30.3 MCHC 32.3 RDW Std Deviation 44.5 H RDW Coeff of Heather 13.0 Plt Count 261 MPV 9.1 Immature Gran % (Auto) 0.200 Neut % (Auto) 46.2 L Lymph % (Auto) 37.4 [place] % (Auto) 12.8 H Eos % (Auto) 2.7 Baso % (Auto) 0.7 Absolute Neuts (auto) 2.6 Absolute Lymphs (auto) 2.10 Nucleated RBC % 0 Sodium 140 Potassium 4.0 Chloride 107 Carbon Dioxide 29.0 Anion Gap 4 L BUN 21 H Creatinine 1.09 Estim Creat Clear Calc 65.24 Est GFR (MDRD) Af Amer 85 Est GFR (MDRD) Non-Af 71 BUN/Creatinine Ratio 19.3 Glucose 102 Calcium 8.5 Urine Color Yellow Urine Clarity Clear Urine pH 6.0 Ur Specific [place] 1.025 Urine Protein Negative Urine Glucose (UA) Normal Urine Ketones Negative Urine Occult Blood Negative Urine Nitrite Negative Urine Bilirubin Negative Urine Urobilinogen Normal Ur Leukocyte Esterase Negative Urine RBC 0 SEEN Urine WBC 0 SEEN Ur Squamous Epith Cells 0-5 SEEN Urine Bacteria 0 SEEN Urine Mucus 0 SEEN - Medical Decision Making 74-year-old male presenting with right lower quadrant abdominal pain. He states has been there for a week. Patient denies nausea or vomiting. He has no history of kidney stones. He did state that the pain started periumbilically and migrated to the right lower quadrant however the timeframe is off. Denies diarrhea or constipation. Patient had lab work today is unremarkable. He has no leukocytosis. Renal function electrolytes are normal. Urinalysis is negative for infection and hematuria. Patient had CT abdomen pelvis with IV contrast which shows no acute intra-abdominal process. On patient reevaluation he is feeling comfortable. I counseled he will need to follow-up with his PCP to ensure resolution. He is given return precautions. Impression: 1. Abdominal pain ED Disposition - Plan for ED Patient: Disposition: Home or Assisted Living Instructions: Abdominal Pain Referrals: Anthony Reyes MD [Primary Care Provider] -
[2020-09-21 21:43] LABS: Bacteria 0 SEEN /hpf (None Seen); Mucous, Urine 0 SEEN /hpf (<or=2+); Red Blood Cells-Urine 0 SEEN /hpf (0-5); White Blood Cells 0 SEEN /hpf (0-5)
[2020-09-21] MEDS: 0.9% Normal Saline 1,000 ML 1000 ML IV (21:43)
[2020-09-21 21:44] LABS: Color, Urine Yellow (Yellow); Glucose, Dipstick Normal (Normal); Ketone-Dipstick Negative (Negative); Leukocyte Esterase-Dipstick Negative /ul (Negative); Nitrite-Dipstick Negative (Negative); Occult Blood-Urine Negative /ul (Negative); Protein-Dipstick Negative (Negative); Specific Gravity, Urine 1.025 (1.002-1.030); Urine Bilirubin Dipstick Negative (Negative); Urine Clarity Clear (Clear); Urine Urobilinogen Normal (Normal)
[2020-09-21 21:50] LABS: Squamous Epithelial Cells - UA 0-5 SEEN /hpf (0-5)
[2020-09-21 21:53] LABS: Absolute Neutrophil Count 2.6 X10^3/uL (2.0-7.7); Basophil# 0.04 X10^3/uL; Basophil% 0.7 % (0-1); Eosinophil# 0.15 X10^3/uL; Eosinophils% 2.7 % (0-5); Hematocrit 43.9 % (40-54); Hemoglobin 14.2 g/dL (13.0-16.5); Lymphocyte % 37.4 % (19-41); Mean Corp Hgb Conc 32.3 g/dL (32-36); Mean Corpuscular Hgb 30.3 pg (27.0-32.0); Mean Corpuscular Volume 93.8 fL (80-94); Mean Platelet Vol. 9.1 fl (6.2-12.0); Monocyte# 0.72 X10^3/uL; Monocyte% 12.8 % (0-10); NRBC Flagged by Analyzer 0 % (0-5); Neutrophil # 2.59 X10^3/uL (2.7-7.7); Neutrophil % 46.2 % (47-70); Platelet Count 261 K/mm3 (150-450); RBC Distribution Width SD 44.5 fl (35.1-43.9); Red Blood Count 4.68 M/mm3 (4.6-6.2); White Blood Count 5.6 K/mm3 (4.4-11.0)
--- NOTE | 2020-09-21 21:59 | CT_ITS ---
STUDY: CT ABDOMEN AND PELVIS WITH CONTRAST REASON FOR EXAM: Male, 74 years old. RLQ pain RADIATION DOSAGE (If Supplied By Facility): CTDIvol = ( 18.72 ) mGy, DLP = ( 1396.76 ) mGycm TECHNIQUE: Transaxial images were obtained from the dome of the diaphragm to the symphysis pubis without oral contrast. IV 100mL Isovue-370 was administered. Sagittal and coronal images were reconstructed. Individualized dose optimization techniques were used for this CT. COMPARISON: None. FINDINGS: The visualized lung bases are unremarkable. The visualized portions of the heart are within normal limits. Normal liver. Gallstone measuring 2.8 cm. Otherwise, unremarkable gallbladder Normal spleen. There is diffuse atrophy of the pancreas. Normal bilateral adrenal glands. Normal right kidney. Normal left kidney. Normal visualized stomach. Normal small intestine. There are multiple colonic diverticula consistent with diverticulosis. The appendix is visualized and appears normal. There is diffuse atherosclerotic calcification of the abdominal aorta, without a demonstrated aneurysm. Normal inferior vena cava. Normal retroperitoneum. Normal urinary bladder. Normal visualized prostate gland. Normal abdominal wall. Normal osseous structures. CT/Abdomen/Pelvis W IV Cont ONLY IMPRESSION: Gallstone. No evidence of acute cholecystitis. Remainder is within normal limits. Normal appendix. Electronically Signed: Tera Schuster DO at 23:02 EDT Tel , Service support ,
[2020-09-21 22:00] LABS: Anion Gap 4 (5-15); BUN 21 mg/dL (7-18); BUN/Creat Ratio 19.3 RATIO (10-20); Calcium,Total 8.5 mg/dL (8.5-10.1); Chloride 107 mmol/L (98-107); Creatinine, Serum 1.09 mg/dL (0.70-1.30); EST Glomerular Filtration Rate 71 mL/min (>60); Est Glom Filt Rate - Afr Amer 85 mL/min (>60); Estimated Creatinine Clearance 65.24 ml/min; Glucose 102 mg/dL (74-106); Sodium Level 140 mmol/L (136-145)
[2020-09-22 00:12] VITALS: BP 128/88; PULSE 77; RESP 16
== END 2020-09-22 00:13 | disposition home or self-care (01) ==
PROVIDERS: Emergency Provider Student in an Organized Health Care Education/Training Program; PCP Family Medicine
DX: R10.31 Right lower quadrant pain (principal); E78.5 Hyperlipidemia, unspecified; I35.0 Nonrheumatic aortic (valve) stenosis; I25.10 Atherosclerotic heart disease of native coronary artery without angina pectoris; I48.0 Paroxysmal atrial fibrillation; I48.92 Unspecified atrial flutter; Z79.82 Long term (current) use of aspirin; Z79.899 Other long term (current) drug therapy
CPT/HCPCS: 74177; 80048; 81001; 85025; 96361; 96374; 96375; 99283; J7030; Q9967; A4216

== ENCOUNTER 2021-06-03 12:00 | Observation (INO) | payer MEDICARE, BC, SELFPAY ==
[2021-06-03] VITALS (10 sets, daily range): BP systolic 117–138; BP diastolic 64–86; PULSE 71–102; RESP 18–24; TEMP 35.8–37.3; O2SAT 88–96; BMI 35.5; BMI 32.0
--- NOTE | 2021-06-03 12:51 | EKG12_ITS ---
Test Reason : SOB Blood Pressure : / mmHG Vent. Rate : 073 BPM Atrial Rate : 073 BPM P-R Int : 196 ms QRS Dur : 136 ms QT Int : 460 ms P-R-T Axes : 046 -17 136 degrees QTc Int : 506 ms Normal sinus rhythm Left bundle branch block Abnormal ECG Confirmed by STEFANO ALVA, JOSEFINA ([id number]), restaurant expeditor GRACE OQUENDO ([id number]) on 06/06/2021 10:34:47 AM Referred By: DANIAL Confirmed By:JOSEFINA AGARWAL MD
--- NOTE | 2021-06-03 13:00 | RAD_ITS ---
STUDY: X-RAY CHEST REASON FOR EXAM: Male, 75 years old. SOB TECHNIQUE: Single AP portable view of the chest. COMPARISON: 11/16/2015 FINDINGS: The lungs are clear and expanded. There is no demonstrated pleural abnormality. Normal size heart. Normal mediastinum and jesus. Normal visualized pulmonary arteries. Normal visualized aortic arch and descending thoracic aorta. Normal visualized thoracic spine. Multiple healed left rib fractures. There is no demonstrated abnormality of the visualized soft tissue structures of the upper abdomen. RAD/Chest 1 View (Portable) IMPRESSION: No active disease. Electronically Signed: Peterson Thomas MD at 13:33 EST Tel , Service support ,
[2021-06-03 13:33] LABS: Absolute Neutrophil Count 1.3 X10^3/uL (2.0-7.7); Basophil# 0.01 X10^3/uL; Basophil% 0.3 % (0-1); Hemoglobin 17.2 g/dL (13.0-16.5); Lymphocyte % 36.7 % (19-41); Mean Corp Hgb Conc 35.1 g/dL (32-36); Mean Corpuscular Hgb 31.7 pg (27.0-32.0); Mean Corpuscular Volume 90.4 fL (80-94); Monocyte# 0.58 X10^3/uL; Monocyte% 19.3 % (0-10); NRBC Flagged by Analyzer 0 % (0-5); Neutrophil % 43.4 % (47-70); POSITIVE MORPHOLOGY YES; Platelet Count 198 K/mm3 (150-450); RBC Distribution Width CV 12.6 % (11.6-14.6); RBC Distribution Width SD 42.1 fl (35.1-43.9); Red Blood Count 5.42 M/mm3 (4.6-6.2)
[2021-06-03 13:34] LABS: Differential Indicated SCAN CRITERIA MET
[2021-06-03 13:43] LABS: Anion Gap 8 (5-15); BUN 21 mg/dL (7-18); BUN/Creat Ratio 18.1 RATIO (10-20); Calcium,Total 8.8 mg/dL (8.5-10.1); Chloride 102 mmol/L (98-107); Creatinine, Serum 1.16 mg/dL (0.70-1.30); EST Glomerular Filtration Rate 66 mL/min (>60); Est Glom Filt Rate - Afr Amer 79 mL/min (>60); Estimated Creatinine Clearance 60.41 ml/min; Glucose 143 mg/dL (74-106); Potassium 3.7 mmol/L (3.5-5.1); Sodium Level 138 mmol/L (136-145)
--- NOTE | 2021-06-03 13:52 | ED.RN ---
WHILE ASSESSING PTS OXYGEN LEVEL, RESPIRATORY ENTERED AND ASKED FAMILY TO MOVE TO THE OTHER SIDE OF THE BED FOR A MOMENT WHILE SHE BARRIOS A EKG. FAMILY MEMBER MADE THE COMMENT THESE ROOMS SHOULD BE ORGANIZED BETTER? APOLOGIZED AND STATED THE ROOMS ARE SMALL. FAMILY REPEATED THEY SHOULD BE ORGANIZED BETTER YET AGAIN.
[2021-06-03 13:57] LABS: Platelet Estimate ADEQUATE (ADEQ)
[2021-06-03 13:58] LABS: Reactive Lymphocyte RARE; Red Cell Morphology NORM C+C NORMAL (NORM C&C)
[2021-06-03] MEDS: Haloperidol Lactate 5 MG/ML Vial 2 MG IV (14:38)
--- NOTE | 2021-06-03 14:41 | CT_ITS ---
STUDY: CTA CHEST REASON FOR EXAM: Male, 75 years old. hypoxia RADIATION DOSAGE (If Supplied By Facility): CTDIvol = ( 11.39 ) mGy, DLP = ( 468.18 ) mGycm TECHNIQUE: The examination was performed with the intravenous administration of IV 100mL Isovue-370. Post-processing of the angiographic images was performed, with multiplanar reformation and 3D reconstruction. Individualized dose optimization techniques were used for this CT. COMPARISON: Chest x-ray earlier today FINDINGS: Normal enhancement of the main pulmonary artery and right and left pulmonary arteries. Normal enhancement of the bilateral peripheral pulmonary arteries. There is no demonstrated pulmonary embolism. Normal thoracic aorta and visualized great vessels. There is no demonstrated aortic dissection. Normal heart and pericardium. Normal mediastinum. Normal hilar regions. Normal visualized trachea and bronchi. The lungs are well expanded. Bilateral peripheral groundglass opacities consistent with mild subsegmental atelectasis or pneumonitis. Normal pleura. Normal chest wall structures. Multiple healed left rib fractures. Normal visualized upper abdomen. CT/CTA Chest W/WO Contrast IMPRESSION: 1. No CT evidence of pulmonary embolism. 2. Mild bilateral subsegmental atelectasis or pneumonitis. Commonly reported imaging features of Covid 19 pneumonia are present. However, other possibilities such as influenza pneumonia and organizing pneumonia from drug toxicity and connective tissue disease can cause a similar imaging pattern. Electronically Signed: Peterson Thomas MD at 15:48 EST Tel , Service support ,
[2021-06-03 15:01] LABS: Troponin-I HS 25 pg/mL (3.0-78.0)
[2021-06-03] MEDS: Famotidine 200 MG/20 ML MDV 20 MG in 0.9% Normal Saline (Pres. free 8 ML 300 MG IV (15:27)
--- NOTE | 2021-06-03 16:52 | HP.PCM.HOS_ITS ---
HPI - General HPI Narrative RAVIN JONES, is a 75 M with a PMH at [facility] who presents with a complaint of nausea and vomiting. Patient started having covid symptoms on May 25 2021. His symptoms havent improved much, so he came in to the ED. He also had a history of sciatica for which he had been told he needed back surgery; patient had however refused back surgery and had been relying on ibuprofen to control his pain. He said he recently took 24 tabs of ibuprofen over a 24 hour period. He complained of some abdominal pain in addition to the nausea and vomiting. He was also found to be saturating at 88% on room air and so required 2L of oxygn. ED tried sending patient home on oxygen, but this was not possible. Vitals were BP of 138/67, R of 79, RR of 19 and temp of 98.4F. He was saturating at 93% on 2L of oxygen by nasal canula. CBC showed wbc of 2, Hb of 17.2, platelets of 198; BMP was largely unremarkable, CXR showed no active disease, and CTA of the chest showed no evidence of PE and showed bilateral subsegmental atelectasis or pneumonitis. He is being admitted to be managed for acute hypoxic respiratory insufficiency due to covid 19 pneumonia. [facility] Medical History Atrial fibrillation and flutter Hemothorax (08/2011) Hyperlipidemia Left bundle branch block Non-rheumatic aortic stenosis Nonobstructive atherosclerosis of coronary artery Nonrheumatic mitral (valve) stenosis Obstructive sleep apnea Paroxysmal atrial fibrillation (2011) Paroxysmal atrial flutter (2011) Syncope Home Medications venlafaxine 75 mg PO BID 11/30/15 [History Last Taken 01/14/19 05:00] aspirin 81 mg PO DAILY@0800 12/08/15 [History Last Taken 01/10/19] albuterol sulfate 1 - 2 puff INHALATION Q6H PRN PRN 01/13/19 [History Last Taken Unknown] famotidine 20 mg PO PRN PRN 01/13/19 [History Last Taken Unknown] metoprolol tartrate 50 mg tablet 50 mg PO BID #180 tab 05/18/20 [Rx Last Taken Unknown] Allergy/AdvReac Type Severity Reaction Status Date / Time No Known Allergies Allergy Verified 06/03/21 12:08 Family History Father CAD (coronary artery disease) Surgical History excision lung nodule H/O hemorrhoidectomy History of electrophysiologic study (08/21/11) History of left heart catheterization (12/01/15) History of loop recorder (08/21/11) History of nasal septoplasty Social History Smoking Status: Unknown if ever smoked alcohol intake: never ROS Constitutional Constitutional: Reports fatigue, malaise and weakness; Denies anorexia, chills or fever(s) Eyes Eyes: Denies change in vision ENT HEENT: Denies dysphagia, headache(s), nasal congestion, nasal discharge or sinus pressure Cardiovascular Cardiovascular: Denies chest pain, dyspnea on exertion, edema, lightheadedness, orthopnea, palpitations, paroxysmal nocturnal dyspnea or rapid heart rate Respiratory/Chest Respiratory/Chest: Reports cough, dyspnea, productive cough, shortness of breath at rest, shortness of breath with exertion and wheezing; Denies excessive phlegm production or hemoptysis Gastrointestinal Gastrointestinal: Reports abdominal pain, nausea and vomiting; Denies constipation or diarrhea Genitourinary Genitourinary: Denies burning urination or dysuria Musculoskeletal Musculoskeletal: Denies back pain, joint pain or joint stiffness Neurologic Neurologic: Reports abnormal gait; Denies confusion, disequilibrium, dizziness, focal weakness, headache(s), numbness, seizure-like activity, seizures or syncope Psychiatric Psychiatric: Denies anxiety Endocrine Endocrinology: Reports change in body appearance Vital Signs Vital Signs Vital Signs: 06/03/21 12:01 06/03/21 13:50 06/03/21 13:51 Temperature 96.4 F L Temperature Source Temporal Pulse Rate 96 Respiratory Rate 24 H 19 H Blood Pressure 132/86 H Blood Pressure Mean 101 Pulse Ox 88 96 Oxygen Delivery Method Room Air Nasal Cannula Nasal Cannula Oxygen Flow Rate (L/min) 2 2 06/03/21 15:28 Temperature 98.4 F Temperature Source Oral Pulse Rate 79 Respiratory Rate 19 H Blood Pressure 138/67 H Blood Pressure Mean 90 Pulse Ox 93 Oxygen Delivery Method Nasal Cannula Oxygen Flow Rate (L/min) 2 Weight Weight: 255 lb Body Mass Index (BMI) 35.5 Physical Exam Const alert, oriented x3 and no apparent distress General Appearance: cooperative HEENT normocephalic and head/scalp atraumatic HEENT Narrative: dry mucosal membranes Eyes PERRL, EOMs intact bilaterally and conjunctivae normal Neck no lymphadenopathy and supple Resp Resp Narrative: mildly diminished breath sounds bibasally, no wheezes or crackles. On 2L of oxygen by nasal canula Cardio regular rate, regular rhythm, S1 normal heart sound, S2 normal heart sound and no murmurs GI normal to inspection, nondistended, normoactive bowel sounds, soft to palpation, non-tender and non-distended Extremity normal to inspection, full ROM and no clubbing, cyanosis or edema Peripheral Pulses: Yes pulses 2+ throughout Skin no rashes or lesions noted Neuro oriented x3, CN's II-XII intact bilaterally and moves all extremities Sensorium / Orientation: awake and alert Psych affect normal Results Lab / Micro Data Result Diagrams: 06/03/21 13:25 06/03/21 13:25 Labs: Laboratory Results - last 24 hr 06/03/21 13:25: WBC 3.0 L, RBC 5.42, Hgb 17.2 H, Hct 49.0, MCV 90.4, MCH 31.7, MCHC 35.1, RDW Std Deviation 42.1, RDW Coeff of Heather 12.6, Plt Count 198, MPV 9.0, Immature Gran % (Auto) 0.300, Neut % (Auto) 43.4 L, Lymph % (Auto) 36.7, [place] % (Auto) 19.3 H, Eos % (Auto) 0.0, Baso % (Auto) 0.3, Absolute Neuts (auto) 1.3 L, Absolute Lymphs (auto) 1.10, Nucleated RBC % 0, Reactive Lymphocytes RARE, Platelet Estimate ADEQUATE, RBC Morphology NORM C+C 06/03/21 13:25: Sodium 138, Potassium 3.7, Chloride 102, Carbon Dioxide 28.0, Anion Gap 8, BUN 21 H, Creatinine 1.16, Estim Creat Clear Calc 60.41, Est GFR (MDRD) Af Amer 79, Est GFR (MDRD) Non-Af 66, BUN/Creatinine Ratio 18.1, Glucose 143 H, Calcium 8.8 06/03/21 13:25: Troponin I High Sens 25 Radiology Impression Chest X-Ray 06/03/21 13:00 IMPRESSION: No active disease. Electronically Signed: Peterson Thomas MD at 13:33 EST Tel , Service support , Chest CTA 06/03/21 14:41 IMPRESSION: 1. No CT evidence of pulmonary embolism. 2. Mild bilateral subsegmental atelectasis or pneumonitis. Commonly reported imaging features of Covid 19 pneumonia are present. However, other possibilities such as influenza pneumonia and organizing pneumonia from drug toxicity and connective tissue disease can cause a similar imaging pattern. Electronically Signed: Peterson Thomas MD at 15:48 EST Tel , Service support , Assessment & Plan Assessment/Plan (1) COVID-19: PLAN: ThisPatient counseled extensively about different types of CODE STATUS including full code, DNR CCA and DNR CCA. Patient elects to be (). Total [id number] time () minutes. #Acute hypoxic respiratory insufficiency due to COVID 19 infection * admit to med surg * on 2L of oxygen. Titrate oxygen to maintain sats > 90% * start on remdesivir and decadron * check D dimer and inflammatory markers * breathing treatment with bronchodilators * #Hyperlipidemia: on statin #Paroxysmal atrial fibrillation: on metoprolol. #Sciatica * has been using ibuprofen for pain from the sciatica. Says he used ~ 24 tabs of ibuprofen recently over 24 hours. Counseled about excessive use of ibuprofen. * Pt/OT consult/ * to follow up with spine surgery on outpatient basis. * #Depression: on venlafaxine. DVT prophylaxis: lovenox 30mg bid. COde status: full code * Patient counseled extensively about different types of CODE STATUS including full code, DNR CCA and DNR CCA. Patient elects to be full code. * Total [id number] time 16 minutes. Charges/Coding Visit Charges OBSV E&M: 89806 Initial observation care L3 Procedures Hospitalists Procedures: 29810 Advncd Care Plan 30 Min
--- NOTE | 2021-06-03 17:35 | ED.VIS.GI ---
HPI HPI - GI History of Present Illness Chief Complaint: Nausea/Vomiting/Diarrhea Narrative Narrative: Patient presenting with nausea and vomiting. He has had COVID-19 and is on day 7 reportedly. Patient states he has been taking a lot of ibuprofen for his sciatic problem which is very old. He was reported to have need for surgery about a year ago but has put this off because he does not want to have surgery. He continues to take multiple doses of ibuprofen at a time and now he has nausea and vomiting. Patient is not complaining of shortness of breath was found to be hypoxic on arrival. He is not anticoagulated but does have history of paroxysmal A. fib. [facility] Medical History Atrial fibrillation and flutter Hemothorax (08/2011) Hyperlipidemia Left bundle branch block Non-rheumatic aortic stenosis Nonobstructive atherosclerosis of coronary artery Nonrheumatic mitral (valve) stenosis Obstructive sleep apnea Paroxysmal atrial fibrillation (2011) Paroxysmal atrial flutter (2011) Syncope Home Medications venlafaxine 75 mg PO BID 11/30/15 [History Last Taken 01/14/19 05:00] aspirin 81 mg PO DAILY@0800 12/08/15 [History Last Taken 01/10/19] albuterol sulfate 1 - 2 puff INHALATION Q6H PRN PRN 01/13/19 [History Last Taken Unknown] famotidine 20 mg PO PRN PRN 01/13/19 [History Last Taken Unknown] metoprolol tartrate 50 mg tablet 50 mg PO BID #180 tab 05/18/20 [Rx Last Taken Unknown] Allergy/AdvReac Type Severity Reaction Status Date / Time No Known Allergies Allergy Verified 06/03/21 12:08 Family History Father CAD (coronary artery disease) Surgical History excision lung nodule H/O hemorrhoidectomy History of electrophysiologic study (08/21/11) History of left heart catheterization (12/01/15) History of loop recorder (08/21/11) History of nasal septoplasty Social History Smoking Status: Unknown if ever smoked alcohol intake: never ROS ROS ED Constitutional Constitutional ED: Denies fever(s) or subjective ENT ENT ED: Denies rhinorrhea Cardiovascular Cardiovascular: Denies chest pain or palpitations Respiratory/Chest Respiratory/Chest: Reports cough; Denies dyspnea Gastrointestinal Gastrointestinal: Reports abdominal pain, diarrhea, nausea and vomiting Genitourinary Genitourinary ED: Denies dysuria or hematuria Musculoskeletal Musculoskeletal: Denies arthralgias or myalgias Integumentary Denies rash Neurologic Neurologic: Denies headache(s) or weakness Psychiatric Psychiatric: Denies anxiety or depression EXAM Physical Exam Const Vital Signs: 06/03/21 12:01 06/03/21 13:50 06/03/21 13:51 Temperature 96.4 F L Temperature Source Temporal Pulse Rate 96 Respiratory Rate 24 H 19 H Blood Pressure 132/86 H Blood Pressure Mean 101 Pulse Ox 88 96 Oxygen Delivery Method Room Air Nasal Cannula Nasal Cannula Oxygen Flow Rate (L/min) 2 2 06/03/21 15:28 Temperature 98.4 F Temperature Source Oral Pulse Rate 79 Respiratory Rate 19 H Blood Pressure 138/67 H Blood Pressure Mean 90 Pulse Ox 93 Oxygen Delivery Method Nasal Cannula Oxygen Flow Rate (L/min) 2 Positive well nourished General Appearance ED: NAD; Negative for pallor HEENT Reports moist mucous membranes normocephalic and atraumatic Eyes PERRL and EOMs intact bilaterally Resp normal respiratory effort Auscultation: rales Cardio regular rate and regular rhythm GI non-distended Auscultation: normoactive bowel sounds Palpation: soft Neuro Sensorium / Orientation: alert, oriented to person, oriented to place and oriented to time Psych mental status grossly normal and thought process normal Skin General Skin Exam: Negative for jaundice or pallor MDM MDM MDM Narrative Medical decision making narrative: Patient with COVID-19 presenting with hypoxia. He is placed on 2 L of oxygen and has been stable on this. EKG is obtained and shows a normal sinus rhythm with ventricular rate of 73 bpm on my interpretation and there is a left bundle branch block. Chest x-ray on my interpretation shows no acute cardiopulmonary process. High-sensitivity troponin is 25. Given patient's hypoxia and Covid positive test I did obtain a CT of the chest which shows pneumonitis consistent with COVID-19. Patient will be given dexamethasone and since he is requiring oxygen be admitted to the hospital as we have no ability to discharge patient is on Lovenox of oxygen currently due to supply/demand. Patient's nausea vomiting could be a combination of the excessive ibuprofen causing irritation to the stomach as well as having COVID-19. Patient admitted in stable condition. Impression: 1. COVID-19 pneumonitis 2. Nausea/vomiting 3. Hypoxic respiratory failure Lab Data Attestation: I reviewed the patient's lab results. Labs: Laboratory Results - last 24 hr 06/03/21 06/03/21 06/03/21 13:25 13:25 13:25 WBC 3.0 L RBC 5.42 Hgb 17.2 H Hct 49.0 MCV 90.4 MCH 31.7 MCHC 35.1 RDW Std Deviation 42.1 RDW Coeff of Heather 12.6 Plt Count 198 MPV 9.0 Immature Gran % (Auto) 0.300 Neut % (Auto) 43.4 L Lymph % (Auto) 36.7 Lake % (Auto) 19.3 H Eos % (Auto) 0.0 Baso % (Auto) 0.3 Absolute Neuts (auto) 1.3 L Absolute Lymphs (auto) 1.10 Nucleated RBC % 0 Reactive Lymphocytes RARE Platelet Estimate ADEQUATE RBC Morphology NORM C+C Sodium 138 Potassium 3.7 Chloride 102 Carbon Dioxide 28.0 Anion Gap 8 BUN 21 H Creatinine 1.16 Estim Creat Clear Calc 60.41 Est GFR (MDRD) Af Amer 79 Est GFR (MDRD) Non-Af 66 BUN/Creatinine Ratio 18.1 Glucose 143 H Calcium 8.8 Troponin I High Sens 25 Radiography Diagnostic Testing: Clinical Impression(s) from Imaging Studies Chest X-Ray 06/03/21 13:00 IMPRESSION: No active disease. Electronically Signed: Peterson Thomas MD at 13:33 EST Tel , Service support , Chest CTA 06/03/21 14:41 IMPRESSION: 1. No CT evidence of pulmonary embolism. 2. Mild bilateral subsegmental atelectasis or pneumonitis. Commonly reported imaging features of Covid 19 pneumonia are present. However, other possibilities such as influenza pneumonia and organizing pneumonia from drug toxicity and connective tissue disease can cause a similar imaging pattern. Electronically Signed: Peterson Thomas MD at 15:48 EST Tel , Service support , Discharge Plan Triage Chief Complaint: Nausea/Vomiting/Diarrhea ED Provider: Jassi Clayton Dx/Rx/DC Orders Prescriptions: No Action venlafaxine 75 MG tablet 75 mg PO BID RF: 0 aspirin 81 MG tablet,chewable 81 mg PO DAILY@0800 RF: 0 famotidine 20 MG tablet 20 mg PO PRN PRN (Reason: GERD) RF: 0 albuterol sulfate 1 INHALER inhaler 1 - 2 puff inhalation Q6H PRN PRN (Reason: Wheezing) RF: 0 metoprolol tartrate 50 mg tablet 50 mg PO BID Qty: 180 RF: 3 Primary Care Provider: Anthony Reyes
--- NOTE | 2021-06-03 19:31 | PCS.PANDOC ---
PANDEMIC DOCUMENTATION INITIATED: Date: 01/15/2021 Time: 190
[2021-06-03 21:22] LABS: BNP,B-Type NATRIURETIC PEPTIDE 24.2 pg/mL (0-100)
[2021-06-03] MEDS: Enoxaparin 30 MG/0.3 ML Syringe SC (21:39)
[2021-06-03] MEDS: 0.9% Saline Lock 10 ML Syringe IV (21:39)
[2021-06-03 21:40] LABS: Alkaline Phosphatase 102 U/L (45-117); CPK Total, Creatine Kinase 72 U/L (39-308); LDH 284 U/L (87-241)
[2021-06-03] MEDS: Venlafaxine HCl 75 MG Tablet PO (21:40)
[2021-06-03] MEDS: Metoprolol Tartrate 50 MG Tablet PO (21:40)
[2021-06-03] MEDS: Acetaminophen 325 MG Tablet 650 MG PO (21:40)
[2021-06-03] MEDS: Ondansetron 4 MG/2 ML Vial IV (21:50)
[2021-06-03 21:55] LABS: Fibrinogen 522 mg/dl (203-444); International Normalized Ratio 1.1; Prothrombin Time (Protime)PT. 13.5 SECONDS (11.7-14.9)
[2021-06-03 23:02] LABS: Procalcitonin 0.04 ng/mL (0.00-0.09)
[2021-06-04] VITALS (11 sets, daily range): BP systolic 103–126; BP diastolic 68–82; PULSE 51–75; RESP 18–24; TEMP 36.8–37.3; O2SAT 85–96
[2021-06-04 06:53] LABS: Absolute Lymphocyte Count 0.88 X10^3/uL (0.83-4.51); Absolute Neutrophil Count 1.1 X10^3/uL (2.0-7.7); Basophil# 0.01 X10^3/uL; Basophil% 0.4 % (0-1); Hematocrit 42.6 % (40-54); Hemoglobin 14.6 g/dL (13.0-16.5); Lymphocyte # 0.88 X10^3/ul (0.83-4.51); Lymphocyte % 37.8 % (19-41); Mean Corp Hgb Conc 34.3 g/dL (32-36); Mean Corpuscular Hgb 30.8 pg (27.0-32.0); Mean Corpuscular Volume 89.9 fL (80-94); Mean Platelet Vol. 9.4 fl (6.2-12.0); Monocyte# 0.35 X10^3/uL; NRBC Flagged by Analyzer 0 % (0-5); Neutrophil # 1.08 X10^3/uL (2.7-7.7); Neutrophil % 46.4 % (47-70); Platelet Count 161 K/mm3 (150-450); RBC Distribution Width CV 12.4 % (11.6-14.6); RBC Distribution Width SD 41.2 fl (35.1-43.9); Red Blood Count 4.74 M/mm3 (4.6-6.2); White Blood Count 2.3 K/mm3 (4.4-11.0)
[2021-06-04 07:16] LABS: ALB/GLOB Ratio 0.6 RATIO (0.9-2.4); AST(SGOT) 43 U/L (15-37); Alanine Aminotransfer ALT/SGPT 40 U/L (16-61); Albumin, Serum 2.6 g/dL (3.2-5.0); Alkaline Phosphatase 80 U/L (45-117); Anion Gap 5 (5-15); BUN 18 mg/dL (7-18); BUN/Creat Ratio 20.6 RATIO (10-20); Calcium,Total 8.3 mg/dL (8.5-10.1); Chloride 106 mmol/L (98-107); Creatinine, Serum 0.87 mg/dL (0.70-1.30); EST Glomerular Filtration Rate 91 mL/min (>60); Est Glom Filt Rate - Afr Amer 110 mL/min (>60); Estimated Creatinine Clearance 80.54 ml/min; Globulin 4.3 g/dL (2.2-4.2); Glucose 101 mg/dL (74-106); Potassium 3.7 mmol/L (3.5-5.1); Protein, Total 6.9 g/dL (6.4-8.2); Sodium Level 138 mmol/L (136-145)
[2021-06-04] MEDS: dexAMETHasone 4 MG Tablet 6 MG PO (10:00)
[2021-06-04] MEDS: Aspirin 81 MG TAB.CHEW PO (10:01)
[2021-06-04] MEDS: Venlafaxine HCl 75 MG Tablet PO (10:01)
[2021-06-04] MEDS: Metoprolol Tartrate 50 MG Tablet PO (10:01)
[2021-06-04] MEDS: Enoxaparin 30 MG/0.3 ML Syringe SC (10:02)
--- NOTE | 2021-06-04 13:13 | DS.PCM_ITS ---
Providers Date of Admission: 06/03/21 Date of Discharge: 06/04/21 Primary Care Physician: Dr. Anthony Reyes MD Reason For Visit: ACUTE HYPOXIC RESPIRATORY INSUFFICIENCY DUE Diagnosis Discharge Diagnosis (1) COVID-19: Status: Acute Code(s): U07.1 - COVID-19 Medications at Discharge Home Medications venlafaxine 75 mg PO BID 11/30/15 aspirin 81 mg PO DAILY@0800 12/08/15 albuterol sulfate 1 - 2 puff INHALATION Q6H PRN PRN 01/13/19 famotidine 20 mg PO PRN PRN 01/13/19 dexamethasone 6 mg PO DAILY@0800 8 Days #12 tab 06/04/21 metoprolol tartrate 50 mg tablet 50 mg PO BID #180 tab 06/04/21 Hospital Course Operations None Procedures None Summary of Care Provided Minutes Spent on Discharge: 45 Hospital Course: 75-year-old male with past medical history of paroxysmal atrial fibrillation/flutter, not in acute exacerbation, will continue with prn breathing treatments, continue on oxygen who presents with fever, chills, shortness of breath, generalized aches ongoing since May 25. Patient had also associated nausea and vomiting. In the emergency room, he was found to be saturating 88% on room air and required 2 L of oxygen. [facility] and started on dexamethasone and remdesivir. Patient continued to remain stable. No acute events during this hospital stay. He was found to require 3 L of oxygen with exertion. Patient was eager to be discharged to look after his special needs child. He was discharged to complete 10 days of dexamethasone. He will need to complete 20 days of quarantine from the start of his symptoms. He would also need to follow-up with his primary care doctor to have his oxygen reevaluated. Physical Exam Narrative Physical exam: General: Alert, Oriented x3, Cooperative, No apparent distress, on 3 L of oxygen HEENT: Atraumatic Oral: Moist Mucosa Neck: Supple Lungs: Diminished to auscultation Cardiovascular: HS I+II, regular, no murmurs Abdomen: Bowel Sounds Present, Soft, Non Tender Extremities: No edema Weight / BMI Weight Weight: 104.1 kg Body Mass Index (BMI) 32.0 ABG / Lab / Microbiology Data Result Diagrams: 06/04/21 06:27 06/04/21 06:27 Laboratory: Laboratory Results - last 24 hr 06/03/21 12:25: Alkaline Phosphatase 102, Lactate Dehydrogenase 284 H, Total Creatine Kinase 72, C-React Prot Ext Range 12.30 H 06/03/21 12:25: B-Natriuretic Peptide 24.2 06/03/21 13:25: WBC 3.0 L, RBC 5.42, Hgb 17.2 H, Hct 49.0, MCV 90.4, MCH 31.7, MCHC 35.1, RDW Std Deviation 42.1, RDW Coeff of Heather 12.6, Plt Count 198, MPV 9.0, Immature Gran % (Auto) 0.300, Neut % (Auto) 43.4 L, Lymph % (Auto) 36.7, [place] % (Auto) 19.3 H, Eos % (Auto) 0.0, Baso % (Auto) 0.3, Absolute Neuts (auto) 1.3 L, Absolute Lymphs (auto) 1.10, Nucleated RBC % 0, Reactive Lymphocytes RARE, Platelet Estimate ADEQUATE, RBC Morphology NORM C+C 06/03/21 13:25: Sodium 138, Potassium 3.7, Chloride 102, Carbon Dioxide 28.0, Anion Gap 8, BUN 21 H, Creatinine 1.16, Estim Creat Clear Calc 60.41, Est GFR (MDRD) Af Amer 79, Est GFR (MDRD) Non-Af 66, BUN/Creatinine Ratio 18.1, Glucose 143 H, Calcium 8.8 06/03/21 13:25: Troponin I High Sens 25 06/03/21 21:24: PT 13.5, INR 1.1, Fibrinogen 522 H 06/03/21 21:24: Procalcitonin 0.04 06/04/21 06:27: WBC 2.3 L, RBC 4.74, Hgb 14.6, Hct 42.6, MCV 89.9, MCH 30.8, MCHC 34.3, RDW Std Deviation 41.2, RDW Coeff of Heather 12.4, Plt Count 161, MPV 9.4, Immature Gran % (Auto) 0.400, Neut % (Auto) 46.4 L, Lymph % (Auto) 37.8, [place] % (Auto) 15.0 H, Eos % (Auto) 0.0, Baso % (Auto) 0.4, Absolute Neuts (auto) 1.1 L, Absolute Lymphs (auto) 0.88, Nucleated RBC % 0 06/04/21 06:27: Sodium 138, Potassium 3.7, Chloride 106, Carbon Dioxide 27.0, Anion Gap 5, BUN 18, Creatinine 0.87, Estim Creat Clear Calc 80.54, Est GFR (MDRD) Af Amer 110, Est GFR (MDRD) Non-Af 91, BUN/Creatinine Ratio 20.6 H, Glucose 101, Calcium 8.3 L, Total Bilirubin 0.70, AST 43 H, ALT 40, Alkaline Phosphatase 80, Total Protein 6.9, Albumin 2.6 L, Globulin 4.3 H, A lbumin/Globulin Ratio 0.6 L Radiography Diagnostic Testing: Radiology Impression Chest X-Ray 06/03/21 13:00 IMPRESSION: No active disease. Electronically Signed: Peterson Thomas MD at 13:33 EST Tel , Service support , Chest CTA 06/03/21 14:41 IMPRESSION: 1. No CT evidence of pulmonary embolism. 2. Mild bilateral subsegmental atelectasis or pneumonitis. Commonly reported imaging features of Covid 19 pneumonia are present. However, other possibilities such as influenza pneumonia and organizing pneumonia from drug toxicity and connective tissue disease can cause a similar imaging pattern. Electronically Signed: Peterson Thomas MD at 15:48 EST Tel , Service support , D/C Instructions Discharge Diet: Low fat / Low cholesterol and 2000 mg Sodium Diet Meaningful Use Info Meaningful Use Diagnoses (Choose all that apply): None applicable Discharge Plan Admission Admit Date/Time: 06/03/21 17:43 Primary Reason for Your Visit: Acute respiratory failure/Acute COVID-19 pneumonia Attending Provider: Kimberly Burgess Primary Care Provider: Anthony Reyes Instructions Additional Instructions / Restrictions: You are being discharged with oxygen. Continue to use your oxygen all the time. Continue to use your incentive spirometer. Continue to remain active and eat healthy. Let your doctor know if you develop fever >101.3F or have progressive worsening shortness of breath. Follow-up with your primary care doctor to have your continued oxygen use reevaluated. Be careful of going near open flames whilst on oxygen. Complete your Decadron as prescribed. Continue to use your inhaler as needed for shortness of breath. Continue to quarantine for 20 days total from the start of your symptoms. Discharge Orders/Prescriptions Prescriptions: New dexamethasone 4 mg Tablet 6 mg PO DAILY@0800 8 Days Qty: 12 RF: 0 Continued venlafaxine 75 MG tablet 75 mg PO BID RF: 0 aspirin 81 MG tablet,chewable 81 mg PO DAILY@0800 RF: 0 famotidine 20 MG tablet 20 mg PO PRN PRN (Reason: GERD) RF: 0 albuterol sulfate 1 INHALER inhaler 1 - 2 puff inhalation Q6H PRN PRN (Reason: Wheezing) RF: 0 metoprolol tartrate 50 mg tablet 50 mg PO BID Qty: 180 RF: 3 Referrals / Follow Up: Anthony Reyes MD [Primary Care Provider] - Disposition Disposition (needs filled in before D/C Order can be placed): Home, Self Care Charges/Coding Visit Charges Inpatient E&M: 10393 Disch Hosp
--- NOTE | 2021-06-04 15:40 | CASEMGMT ---
DUTCH LUZ Assessment: Face to Face with pt for initial transition planning/care coordination assessment. DUTCH LUZ introduced self and role at [facility], pt voices understanding and consents to assessment. Pt is A/O x4 and answers all questions appropriately at this time. Pt sitting up in chair with O2 on in no distress. Pt kept eyes closed throughout assessment until the very end. Care providers, pharmacy, and demographics verified/updated. Admitting Dx: acute hypoxic resp insuff d/t COVID PCP:Amy Specialists:[facility] Preferred Pharmacy: [facility] Insurance: Trixie CALDERÓN Prescription Benefit: yes LW/HPOA: Pt states he has a LW/DPOA and his DPOA is his dtr Maren Lee. He is aware that it is not on file at [facility] and he may bring in to be scanned into the chart. LNOK: Lizabeth Lang, dtr; Maren Olivares, dtr Living Arrangements: Pt lives with dtr Luann who has Downs Syndrome. He reports he is I in ADL's and denies concerns at home. Transportation: Pt drives self and denies concerns with transportation. DME/HHC/SNF: Pt has grab bars in the bathroom, denies previous HHC or SNF stays. pt states he was first tested for COVID at [facility]. Pt dtr Luann also is positive for COVID. Pt has family/friends who can provide him with groceries and supplies while in quarantine. Pt qualifies for home O2, pt has no preference of DME. Provided him a verbal local in network list of providers. Pt states his strength is good and denies any need for HHC. Pt states no concerns with going home at time of dc. Pt states no further concerns/needs. CM to follow. Advised pt to ask CM if any further question/concerns/needs arise, voices understanding. Pt Goal: Home Plan: Home with O2- Faxed referral to [employer]. TC to office and they are aware pt to take portable tank from stock.
== END 2021-06-04 17:43 | disposition home or self-care (01) ==
LOC: ED 17:49 → MS3 18:26
PROVIDERS: Admitting Provider Student in an Organized Health Care Education/Training Program; Emergency Provider Student in an Organized Health Care Education/Training Program; PCP Family Medicine; Visit Provider Internal Medicine
DX: U07.1 COVID-19 (principal); J96.01 Acute respiratory failure with hypoxia; I48.0 Paroxysmal atrial fibrillation; Z79.82 Long term (current) use of aspirin; I25.10 Atherosclerotic heart disease of native coronary artery without angina pectoris; E78.5 Hyperlipidemia, unspecified; J12.82 Pneumonia due to coronavirus disease 2019; Z79.899 Other long term (current) drug therapy; M54.30 Sciatica, unspecified side; F32.A Depression, unspecified
CPT/HCPCS: 36415; 71045; 71275; 80048; 80053; 82550; 83615; 83880; 84075; 84145; 84484; 85025; 85384; 85610; 86140; 93005; 94760; 94762; 96372; 96374; 96375; 97162; 97166; 99218; 99251; 99283; J7040; J7050; Q9967; A4216; G0378; G0463; J0248; J2405; J3490

== ENCOUNTER → 2021-11-02 | Outpatient (CLI) | payer MEDICARE, BC, SELFPAY ==
[2021-11-02 11:57] LABS: Absolute Lymphocyte Count 1.63 X10^3/uL (0.83-4.51); Absolute Neutrophil Count 2.1 X10^3/uL (2.0-7.7); Basophil# 0.03 X10^3/uL; Basophil% 0.7 % (0-1); Eosinophil# 0.12 X10^3/uL; Eosinophils% 2.7 % (0-5); Hematocrit 43.9 % (40-54); Hemoglobin 15.1 g/dL (13.0-16.5); Lymphocyte # 1.63 X10^3/ul (0.83-4.51); Lymphocyte % 37.3 % (19-41); Mean Corp Hgb Conc 34.4 g/dL (32-36); Mean Corpuscular Hgb 32.5 pg (27.0-32.0); Mean Corpuscular Volume 94.4 fL (80-94); Mean Platelet Vol. 9.2 fl (6.2-12.0); Monocyte% 11.4 % (0-10); NRBC Flagged by Analyzer 0 % (0-5); Neutrophil # 2.07 X10^3/uL (2.7-7.7); Neutrophil % 47.4 % (47-70); Platelet Count 210 K/mm3 (150-450); RBC Distribution Width CV 11.9 % (11.6-14.6); RBC Distribution Width SD 40.4 fl (35.1-43.9); Red Blood Count 4.65 M/mm3 (4.6-6.2); White Blood Count 4.4 K/mm3 (4.4-11.0)
[2021-11-02 12:40] LABS: AST(SGOT) 24 U/L (15-37); Alanine Aminotransfer ALT/SGPT 29 U/L (16-61); Albumin, Serum 3.6 g/dL (3.2-5.0); Alkaline Phosphatase 82 U/L (45-117); Anion Gap 6 (5-15); BUN 15 mg/dL (7-18); BUN/Creat Ratio 15.8 RATIO (10-20); Calcium,Total 8.8 mg/dL (8.5-10.1); Chloride 107 mmol/L (98-107); Cholesterol 174 mg/dL (200); Creatinine, Serum 0.95 mg/dL (0.70-1.30); EST Glomerular Filtration Rate 83 mL/min (>60); Est Glom Filt Rate - Afr Amer 100 mL/min (>60); Globulin 3.5 g/dL (2.2-4.2); Glucose 121 mg/dL (74-106); High Density Lipoprotein 51 mg/dL; Potassium 4.2 mmol/L (3.5-5.1); Protein, Total 7.1 g/dL (6.4-8.2); Sodium Level 138 mmol/L (136-145); Thyroid Stim Hormone (TSH) 0.89 uIU/mL (0.358-3.74); Triglycerides 104 mg/dL; Very Low Density Lipoprotein 21 mg/dL (5-40)
[2021-11-05 18:10] LABS: Hemoglobin A1c 6.2 % (3.8-5.6)
== END | disposition home or self-care (01) ==
LOC: MFPLAB 11:16
PROVIDERS: PCP Family Medicine; Visit Provider Family Medicine
DX: R73.09 Other abnormal glucose (principal); I48.91 Unspecified atrial fibrillation; I25.10 Atherosclerotic heart disease of native coronary artery without angina pectoris
CPT/HCPCS: 36415; 80053; 80061; 83036; 83735; 84443; 85025

== ENCOUNTER → 2021-11-26 | Outpatient (CLI) | payer MEDICARE, BC, SELFPAY ==
[2021-11-26 10:42] LABS: Anion Gap 4 (5-15); BUN 16 mg/dL (7-18); BUN/Creat Ratio 17.3 RATIO (10-20); Calcium,Total 8.4 mg/dL (8.5-10.1); Chloride 108 mmol/L (98-107); Creatinine, Serum 0.93 mg/dL (0.70-1.30); EST Glomerular Filtration Rate 85 mL/min (>60); Est Glom Filt Rate - Afr Amer 103 mL/min (>60); Glucose 132 mg/dL (74-106); Potassium 4.3 mmol/L (3.5-5.1); Sodium Level 138 mmol/L (136-145)
[2021-11-26 11:10] LABS: BNP,B-Type NATRIURETIC PEPTIDE 48.4 pg/mL (0-100)
== END | disposition home or self-care (01) ==
PROVIDERS: PCP Family Medicine; Referring Provider Nurse Practitioner Gerontology; Visit Provider Nurse Practitioner Gerontology
DX: R06.00 Dyspnea, unspecified (principal)
CPT/HCPCS: 36415; 80048; 83880

== ENCOUNTER → 2021-12-07 | Outpatient (CLI) | payer MEDICARE, BC, SELFPAY ==
--- NOTE | 2021-12-07 06:14 | ECHOCS_ITS ---
Reason For Study: Procedure This was a 2D Doppler, Color Flow transthoracic echocardiogram. Contrast injection was performed. Exam performed in department. Left Ventricle Normal LV size. Severe concentric left ventricular hypertrophy. Left ventricular systolic function is normal. The estimated ejection fraction is 60 %. No regional wall motion abnormalities noted. Right Ventricle Normal RV size. Normal systolic function. Atria Normal left atrium. Normal right atrium. Mitral Valve Normal mitral valve. Tricuspid Valve Normal tricuspid valve. Unable to estimate RV systolic pressure due to insufficient tricuspid regurgitant envelope. Aortic Valve Trisinus/trileaflet aortic valve. Moderate focal aortic valve calcification. Peak aortic valve gradient 62 mmHg. Mean aortic valve gradient 39 mmHg. Severe aortic stenosis. Pulmonic Valve Normal pulmonic valve. Great Vessels Mildly dilated aortic root. The pulmonary artery is normal size. Normal inferior vena cava. Pericardium/Pleural No pericardial effusion. Medication Diluted definity 1ml given slow IV push to enhance endocardial definition. MMode/2D Measurements & Calculations LVIDd: 3.7 cm IVSd: 1.7 cm LVOT diam: 2.1 cm LVIDs: 2.5 cm LVPWd: 1.8 cm RVDd: 3.8 cm FS: 32.2 % LVOT area: 3.6 cm2 Ao root diam: 4.3 cm LAV(MOD-bp): 50.1 ml LVAd ap4: 35.5 cm2 ACS: 1.0 cm LAV(MOD-bp) Indexed: 21.6 ml/m2 LVLd ap4: 8.6 cm LAV(MOD-sp2): 66.5 ml EDV(MOD-sp4): 118.2 ml LAV(MOD-sp4): 35.3 ml EDV(sp4-el): 123.8 ml LVAs ap4: 21.2 cm2 LVLs ap4: 7.3 cm ESV(MOD-sp4): 51.2 ml ESV(sp4-el): 52.5 ml EF(MOD-sp4): 56.7 % EF(sp4-el): 57.6 % SV(MOD-sp4): 67.0 ml SV(sp4-el): 71.3 ml LA A4 area: 15.7 cm2 LA dimension(2D): 3.9 cm RA A4 area: 14.8 cm2 Time Measurements MV dec time: 0.35 sec Doppler Measurements & Calculations MV E max jose juan: 69.5 cm/sec Lat Peak E' Jose Juan: 5.6 cm/sec Med Peak E' Jose Juan: 3.6 cm/sec MV A max jose juan: 99.7 cm/sec E/E' lat: 12.5 E/E' med: 19.2 MV E/A: 0.70 MV V2 max: 101.5 cm/sec MV P1/2t max jose juan: 83.4 cm/sec Ao V2 max: 394.3 cm/sec MV max P.1 mmHg MV P1/2t: 101.6 msec Ao max P.2 mmHg MV V2 mean: 53.5 cm/sec MV dec slope: 240.5 cm/sec2 Ao V2 mean: 297.3 cm/sec MV mean P.3 mmHg MVA(P1/2t): 2.2 cm2 Ao mean P.6 mmHg MV V2 VTI: 33.1 cm Ao V2 VTI: 95.0 cm MVA(VTI): 3.0 cm2 EDUAR(I,D): 1.0 cm2 EDUAR(V,D): 1.1 cm2 LV V1 max: 116.2 cm/sec SV(LVOT): 99.4 ml PA V2 max: 126.0 cm/sec LV V1 max P.4 mmHg LV V1 mean P.0 mmHg LV V1 mean: 82.1 cm/sec LV V1 VTI: 27.7 cm ECHO/Echo Complete W/ Contrast Interpretation Summary Normal LV size. Severe concentric left ventricular hypertrophy. Left ventricular systolic function is normal. The estimated ejection fraction is 60 %. Moderate focal aortic valve calcification. Mean aortic valve gradient 39 mmHg. Severe aortic stenosis. Ordering Physician: Ana Hurd Referring Physician: Anthony Reyes Performed By: Maren Atkins, ELIJAH, RVT
--- NOTE | 2021-12-10 13:45 | STRESSREP ---
Stress Test Report Pharmacologic mild perfusion stress test. 76-year-old man with a history of nonobstructive coronary disease for preoperative evaluation. Stress protocol: Resting KG demonstrates normal sinus rhythm with a rate of 62 bpm left bundle branch block is noted. 0.4 mg of regadenoson was infused per usual protocol followed by rapid intravenous saline flush injection continuous EKG monitoring was performed. The maximum heart rate attained was 73 bpm which was 50% of max impacted heart rate the maximum workload was 1 metabolic equivalent. At rest nonspecific ST changes were noted consistent with a left bundle branch block pattern was noted. No ischemic changes were noted. The final blood pressure was 130/82 mmHg. Myocardial perfusion protocol. 14.7 mCi of technetium 99m sestamibi was injected at rest. 0.4 mg of regadenoson was infused per usual protocol. At peak infusion 44.8 mCi of technetium 99m sestamibi was injected stress images were obtained stress and rest images were reconstructed and compared in the short axis vertical long horizontal long axis. Gated images were also obtained. Perfusion SPECT analysis: Review of the stress images demonstrate normal uptake of tracer noted in all areas of the myocardium. The resting images similarly demonstrate normal uptake of tracer noted in all areas of the myocardium. No areas of reversibility are noted to suggest ischemia and no previous infarct is noted. Gated SPECT analysis: The gated ejection fraction is 58%. Conclusion: Normal pharmacologic myocardial perfusion stress test. Preserved ejection fraction. Left bundle branch block.
== END | disposition home or self-care (01) ==
LOC: CVS 06:11
PROVIDERS: PCP Family Medicine; Visit Provider Nurse Practitioner Gerontology
DX: R07.9 Chest pain, unspecified (principal); I25.10 Atherosclerotic heart disease of native coronary artery without angina pectoris; I44.7 Left bundle-branch block, unspecified; I35.0 Nonrheumatic aortic (valve) stenosis
CPT/HCPCS: 78452; 93017; 93306; A9500; Q9957; A4216; C8929; J2785

== ENCOUNTER → 2022-02-19 | Outpatient (CLI) | payer MEDICARE, BC, SELFPAY ==
--- NOTE | 2022-02-19 14:43 | RAD_ITS ---
EXAM: XR CHEST, 2 VIEWS CLINICAL INDICATION: Pre-operative: [facility] TECHNIQUE: Frontal and lateral views of the chest. This report was created using [employer] system report generation technology. COMPARISON: 06/03/2021. FINDINGS: LUNGS AND PLEURAL SPACES: No suspicious infiltrates. No pneumothorax. No effusion. HEART: Unremarkable. Cardiac silhouette not enlarged. MEDIASTINUM: Central airways and mediastinal contour are unremarkable. BONES/JOINTS: Multiple old left rib fractures are unchanged. SOFT TISSUES: Unremarkable. RAD/Chest PA and Lateral IMPRESSION: No acute findings in the chest and unchanged when compared to 06/03/2021. Electronically Signed: Christopher Cortes MD at 15:59 EDT ,
[2022-02-19 14:57] LABS: Absolute Lymphocyte Count 1.51 X10^3/uL (0.83-4.51); Basophil# 0.02 X10^3/uL; Basophil% 0.4 % (0-1); Eosinophil# 0.14 X10^3/uL; Eosinophils% 2.7 % (0-5); Hematocrit 40.4 % (40-54); Hemoglobin 13.6 g/dL (13.0-16.5); Lymphocyte # 1.51 X10^3/ul (0.83-4.51); Mean Corp Hgb Conc 33.7 g/dL (32-36); Mean Corpuscular Hgb 31.1 pg (27.0-32.0); Mean Corpuscular Volume 92.4 fL (80-94); Mean Platelet Vol. 9.4 fl (6.2-12.0); Monocyte# 0.52 X10^3/uL; NRBC Flagged by Analyzer 0 % (0-5); Neutrophil % 57.7 % (47-70); Platelet Count 243 K/mm3 (150-450); RBC Distribution Width CV 12.5 % (11.6-14.6); Red Blood Count 4.37 M/mm3 (4.6-6.2); White Blood Count 5.2 K/mm3 (4.4-11.0)
[2022-02-19 15:24] LABS: Anion Gap 8 (5-15); BUN 16 mg/dL (7-18); Calcium,Total 8.7 mg/dL (8.5-10.1); Chloride 103 mmol/L (98-107); Creatinine, Serum 0.94 mg/dL (0.70-1.30); EST Glomerular Filtration Rate 83 mL/min (>60); Est Glom Filt Rate - Afr Amer 101 mL/min (>60); Glucose 143 mg/dL (74-106); Potassium 4.3 mmol/L (3.5-5.1); Sodium Level 140 mmol/L (136-145)
== END | disposition home or self-care (01) ==
LOC: LAB 14:31
PROVIDERS: Nurse Practitioner Family; PCP Family Medicine; Visit Provider Family Medicine
DX: I35.0 Nonrheumatic aortic (valve) stenosis (principal); I48.0 Paroxysmal atrial fibrillation; I25.10 Atherosclerotic heart disease of native coronary artery without angina pectoris
CPT/HCPCS: 36415; 71046; 80048; 85025

== ENCOUNTER → 2022-03-04 | Day surgery (SDC) | payer MEDICARE, BC, SELFPAY ==
[2022-03-01 09:58] VITALS: BMI 34.8
--- NOTE | 2022-03-04 09:58 | CL.D_ITS ---
Patient Name: RAVIN JONES Study Date: 03/04/2022 Performing: Juan Kumrai MD Ht: 71 inches 180.34 cm : 1945 Wt: 250 lbs 113.4 kg Age: 76 Gender: male BSA: 2.32 PROCEDURE(S) PERFORMED [id number])[facility] CLINICAL PROFILE AND INDICATIONS Indications: Valvular Disease Heart Failure: None Stress/Imaging Stress/Image Study Performed: No CAD Presentations: No Sxs, no angina. CONCLUSIONS Non obstructive coronary arteries Normal LV size, wall motion,and systolic function Aortic Valve Calcification- Severe Aortic Valve Stenosis- Severe RECOMMENDATIONS Recommend TAVR DESCRIPTION OF PROCEDURE The patient arrived to the procedure lab. The risks and benefits of the procedure as well as a full description of our services here and current unavailability of surgical backup were fully explained to the patient and/or their significant other prior to the catheterization. The Timeout was completed, verifying the correct patient and procedure. The patient's procedural site was prepped and draped in the usual fashion. Local anesthetic was given subcutaneously to right radial region with Lidocaine 2%. Using a modified Seldinger technique, arterial access was obtained via the right radial artery, a 6Fr sheath was inserted. Left Coronary Artery selective angiography was performed in multiple views using a 5 Fr. 4.0 [place] catheter. Right Coronary Artery selective angiography was then performed in multiple views using a 5 Fr. 4.0 [place] catheter.The arterial sheath was pulled and a TR Band was applied for hemostasis CORONARY ANGIOGRAPHY DOMINANCE: Left Dominant LEFT HEART ASSESSMENT Left Ventricular Ejection Fraction: by Echo 60 % Normal LV wall motion Normal Left Ventricular systolic function LEFT MAIN: Angiographically normal LEFT ANTERIOR DESCENDING ARTERY: MID LAD: Moderate luminal irregularities up to 50% CIRCUMFLEX ARTERY: Mild luminal irregularities less than 30% RAMUS: Mild luminal irregularities RIGHT CORONARY ARTERY: No significant disease noted VALVE FINDINGS: Aortic Valve Stenosis - severe COMPLICATIONS No Complications PROCEDURE MEDICATIONS Fentanyl 50 mcg IV Versed 1 mg IV Oxygen: 2 L/min via nasal cannula Heparin given IA 03/04/2022 09:45:57 Verapamil 2.5mg, 3000 units of Heparin given IA 03/04/2022 09:45:57 SUMMARY OF HEMODYNAMIC DATA Time AIR REST ECG 08:55:47 AO 140/86 (108) SA 09:47:58 Signed By Juan Kumari MD On 03/04/2022 09:58:27 Juan Kumari MD
== END | disposition home or self-care (01) ==
LOC: CLSP 08:34
PROVIDERS: PCP Family Medicine; Visit Provider Internal Medicine Cardiovascular Disease
DX: I35.0 Nonrheumatic aortic (valve) stenosis (principal); I70.0 Atherosclerosis of aorta; I48.0 Paroxysmal atrial fibrillation; I25.10 Atherosclerotic heart disease of native coronary artery without angina pectoris; I44.7 Left bundle-branch block, unspecified; G47.33 Obstructive sleep apnea (adult) (pediatric); E78.5 Hyperlipidemia, unspecified; Z79.899 Other long term (current) drug therapy; Z79.82 Long term (current) use of aspirin
CPT/HCPCS: 93454; 99152; 99153; J7040; C1769; C1894; Q9967

== ENCOUNTER → 2022-04-10 | Outpatient (CLI) | payer MEDICARE, BC, SELFPAY ==
[2022-04-10 15:50] LABS: Anion Gap 6 (5-15); BUN 17 mg/dL (7-18); BUN/Creat Ratio 19.9 RATIO (10-20); Calcium,Total 8.3 mg/dL (8.5-10.1); Chloride 104 mmol/L (98-107); Creatinine, Serum 0.85 mg/dL (0.70-1.30); EST Glomerular Filtration Rate 93 mL/min (>60); Est Glom Filt Rate - Afr Amer 113 mL/min (>60); Glucose 113 mg/dL (74-106); Potassium 4.3 mmol/L (3.5-5.1); Sodium Level 138 mmol/L (136-145)
== END | disposition home or self-care (01) ==
LOC: LAB 14:02
PROVIDERS: PCP Family Medicine
DX: I35.0 Nonrheumatic aortic (valve) stenosis (principal)
CPT/HCPCS: 36415; 80048

== ENCOUNTER 2022-04-24 14:07 | Outpatient (CLI) | payer MEDICARE, BC, SELFPAY ==
[2022-04-24 17:51] LABS: Absolute Lymphocyte Count 1.82 X10^3/uL (0.83-4.51); Absolute Neutrophil Count 3.2 X10^3/uL (2.0-7.7); Basophil# 0.04 X10^3/uL; Basophil% 0.7 % (0-1); Eosinophils% 1.7 % (0-5); Hematocrit 43.4 % (40-54); Hemoglobin 14.5 g/dL (13.0-16.5); Lymphocyte # 1.82 X10^3/ul (0.83-4.51); Lymphocyte % 31.8 % (19-41); Mean Corp Hgb Conc 33.4 g/dL (32-36); Mean Corpuscular Volume 92.9 fL (80-94); Mean Platelet Vol. 9.8 fl (6.2-12.0); Monocyte# 0.56 X10^3/uL; Monocyte% 9.8 % (0-10); NRBC Flagged by Analyzer 0 % (0-5); Neutrophil # 3.19 X10^3/uL (2.7-7.7); Neutrophil % 55.8 % (47-70); Platelet Count 280 K/mm3 (150-450); RBC Distribution Width CV 12.7 % (11.6-14.6); RBC Distribution Width SD 43.1 fl (35.1-43.9); Red Blood Count 4.67 M/mm3 (4.6-6.2); White Blood Count 5.7 K/mm3 (4.4-11.0)
[2022-04-24 18:34] LABS: ALB/GLOB Ratio 1.1 RATIO (0.9-2.4); AST(SGOT) 20 U/L (15-37); Alanine Aminotransfer ALT/SGPT 30 U/L (16-61); Albumin, Serum 3.6 g/dL (3.2-5.0); Alkaline Phosphatase 102 U/L (45-117); Anion Gap 10 (5-15); BUN 17 mg/dL (7-18); BUN/Creat Ratio 16.7 RATIO (10-20); Calcium,Total 8.5 mg/dL (8.5-10.1); Chloride 105 mmol/L (98-107); Cholesterol 173 mg/dL (200); Creatinine, Serum 1.02 mg/dL (0.70-1.30); EST Glomerular Filtration Rate 76 mL/min (>60); Est Glom Filt Rate - Afr Amer 92 mL/min (>60); Globulin 3.4 g/dL (2.2-4.2); Glucose 164 mg/dL (74-106); High Density Lipoprotein 46 mg/dL; Magnesium 2.2 mg/dL (1.6-2.6); Potassium 4.2 mmol/L (3.5-5.1); Sodium Level 139 mmol/L (136-145); Thyroid Stim Hormone (TSH) 1.12 uIU/mL (0.358-3.74); Triglycerides 165 mg/dL; Very Low Density Lipoprotein 33 mg/dL (5-40)
[2022-04-24 19:03] LABS: Hemoglobin A1c 6.4 % (3.8-5.6)
== END 2022-04-24 23:59 | disposition home or self-care (01) ==
LOC: MFPLAB 14:08
PROVIDERS: PCP Family Medicine; Visit Provider Family Medicine
DX: I25.10 Atherosclerotic heart disease of native coronary artery without angina pectoris (principal); I48.91 Unspecified atrial fibrillation; R73.02 Impaired glucose tolerance (oral)
CPT/HCPCS: 36415; 80053; 80061; 83036; 83735; 84443; 85025

== ENCOUNTER → 2022-05-20 | Outpatient (CLI) | payer MEDICARE, BC, SELFPAY ==
[2022-05-20 11:30] LABS: Bacteria 0 SEEN /hpf (None Seen); Mucous, Urine 0 SEEN /hpf (<or=2+); Red Blood Cells-Urine 0 SEEN /hpf (0-5); Squamous Epithelial Cells - UA 0 SEEN /hpf (0-5)
[2022-05-20 11:55] LABS: Color, Urine Yellow (Yellow); Glucose, Dipstick Normal (Normal); Ketone-Dipstick Negative (Negative); Leukocyte Esterase-Dipstick 25 /ul (Negative); Nitrite-Dipstick Negative (Negative); Occult Blood-Urine Negative /ul (Negative); Protein-Dipstick 30 mg/dl (Negative); Specific Gravity, Urine 1.025 (1.002-1.030); Urine Bilirubin Dipstick Negative (Negative); Urine Clarity Clear (Clear); Urine Urobilinogen 1 mg/dl (Normal)
[2022-05-20 12:09] LABS: White Blood Cells 0-5 SEEN /hpf (0-5)
== END | disposition home or self-care (01) ==
PROVIDERS: PCP Family Medicine; Referring Provider Internal Medicine Cardiovascular Disease; Visit Provider Internal Medicine Cardiovascular Disease
DX: I44.1 Atrioventricular block, second degree (principal)
CPT/HCPCS: 81001

== ENCOUNTER 2022-05-21 15:47 | Observation (INO) | payer MEDICARE, BC, SELFPAY ==
[2022-05-20 14:01] VITALS: BMI 34.9
--- NOTE | 2022-05-21 11:38 | CL.IE_ITS ---
Patient: RAVIN JONES Study Date: 05/21/2022 Performing: Juan Kumari MD : 1945 Age: 76 Gender: male PROCEDURES PERFORMED LP04-(36051)INITIAL PACER INSERT+DUAL LEADS INDICATIONS Mobitz (type II) AV block PROCEDURE DETAILS The patient was brought to the Catheterization Lab in the postabsorptive nonsedated state. Informed consent was obtained prior to the procedure. Local anesthetic was given subcutaneously to the left upper chest area with Lidocaine 2%. Incision was made to the left upper chest. Access was achieved and a guidewire was advanced into the left subclavian vein. PPM ventricular lead was inserted / positioned to right ventricular apex. PPM ventricular lead testing performed. PPM ventricular lead testing performed. PPM atrial lead was inserted / positioned to the right atrial appendage. PPM atrial lead testing performed. The Ventricular PM lead sutured in place with 2-0 Silk. The Atrial lead sutured in place with 2-0 Silk. PPM generator was attached to the lead(s) and inserted into the pocket. Device pocket was irrigated with antibiotic Ancef.. Subcutaneous closure was completed with 3-0 Vicryl. Skin closure was completed with 4-0 Vicryl. Steri-strips applied to Lt chest area. Instrument, sponge, and needle counts were noted to be normal. The patient tolerated the procedure well. Estimated Blood Loss: < 10 mls IMPLANTED / EX-PLANTED DEVICES IMPLANTED DEVICE(S): PPM Ventricular lead - Collar Turner: [employer], Model # Tendril STS 2088TC , Serial # [id number] PPM Atrial lead - Collar Turner: [employer], Model # Tendril STS 2088TC , Serial # [id number] PPM Generator - Collar Turner: [employer], Model # Assurity MRI JV4991 , Serial # [id number] DEVICE PARAMETERS ATRIAL LEAD PARAMETERS: P wave- 4.0 (mV) Current- 1.4 (mA) threshold- 0.75 (V) impedence- 440 (OHMS) VENTRICULAR LEAD PARAMETERS: R wave- 10.6 (mV) threshold- 0.75 (V) impedence- 960 (OHMS) DEVICE PARAMETERS: Mode- DDDR Lower rate- 60 Upper rate- 120 CONCLUSIONS / RECOMMENDATIONS Device Conclusions: Successful implantation of a dual chamber pacemaker Device Recommendations: Follow up with Primary Care Physician PROCEDURE MEDICATIONS Fentanyl 50 mcg IV Versed 1 mg IV Versed 1 mg IV Fentanyl 25 mcg IV Versed 1 mg IV Oxygen: 2 L/min via nasal cannula Oxygen: 6 L/min via nasal cannula Oxygen: 15 L/min via simple mask Oxygen: 4 L/min via nasal cannula Antibiotic given in appropriate timeframe. Ancef 2 Gm IV @ 05/21/2022 09:38:33 Signed By Juan Kumari MD On 05/21/2022 11:39:36 Signed By Juan Kumari MD On 05/21/2022 11:37:32 Juan Kumari MD
[2022-05-21 16:05] VITALS: PULSE 86
[2022-05-21 16:08] VITALS: BP 140/102; PULSE 60; RESP 16; TEMP 36; O2SAT 98
[2022-05-21] MEDS: Ibuprofen 400 MG Tablet 200 MG PO (17:09)
[2022-05-21 18:35] VITALS: PULSE 63
[2022-05-21] MEDS: Metoprolol Tartrate 50 MG Tablet PO (18:35)
[2022-05-21] MEDS: Atorvastatin Calcium 40 MG Tablet PO (18:35)
[2022-05-21] MEDS: Venlafaxine HCl 75 MG Tablet PO (18:35)
[2022-05-21 19:21] VITALS: PULSE 87
[2022-05-21 19:37] VITALS: BMI 34.9
[2022-05-21 22:15] VITALS: BP 134/81; PULSE 60; RESP 19; TEMP 36; O2SAT 98
[2022-05-22] MEDS: Ibuprofen 400 MG Tablet 200 MG PO (00:40)
[2022-05-22 03:07] VITALS: PULSE 60
[2022-05-22 03:30] VITALS: BP 149/82; PULSE 60; RESP 18; TEMP 36.6; O2SAT 96
[2022-05-22 03:32] VITALS: O2SAT 84
[2022-05-22 03:34] VITALS: O2SAT 100
--- NOTE | 2022-05-22 05:55 | RAD_ITS ---
EXAM: XR CHEST, 3 VIEWS CLINICAL INDICATION: Post permanant ICD/Pacemaker -- inspiration/expiration. Arms Down. Wet read to MD TECHNIQUE: Frontal inspiration and expiration views and lateral view of the chest. This report was created using [employer] report generation technology. COMPARISON: 02/19/2022. FINDINGS: LUNGS AND PLEURAL SPACES: Unremarkable. No consolidation or edema. No pneumothorax. No effusion. HEART: Unremarkable. Cardiac silhouette not enlarged. MEDIASTINUM: Central airways and mediastinal contour are unremarkable. BONES/JOINTS: Old left rib fractures.. SOFT TISSUES: Unremarkable. TUBES, LINES AND DEVICES: Pacemaker leads in good position. RAD/Chest 3 View IMPRESSION: No acute abnormality. No pneumothorax. Electronically Signed: Fareed Magaña MD at 5:27 EST ,
[2022-05-22 08:00] VITALS: PULSE 60
[2022-05-22 08:05] VITALS: BP 130/91; PULSE 60; PULSE 62; RESP 21; TEMP 36.2; O2SAT 100
[2022-05-22] MEDS: Metoprolol Tartrate 50 MG Tablet PO (08:05)
[2022-05-22] MEDS: Venlafaxine HCl 75 MG Tablet PO (08:05)
[2022-05-22] MEDS: Aspirin 81 MG TAB.CHEW PO (08:05)
--- NOTE | 2022-05-22 10:39 | PCM.PN.CARD ---
Subjective Subjective Patient seen and evaluated. Appears to be doing well. Objective Data Vital Signs: Vital Signs Temp Pulse Resp BP Pulse Ox O2 Del Method O2 Flow Rate 97.9 F 60 18 130/91 H 100 Nasal Cannula 2 05/22/22 03:30 05/22/22 08:05 05/22/22 03:30 05/22/22 08:05 05/22/22 03:34 05/22/22 03:34 05/22/22 03:34 Oxygen Flow Rate (L/min) 2 Oxygen Delivery Method Nasal Cannula Weight: 251 lb Body Mass Index (BMI) 34.9 Intake & Output: Intake and Output for Last 24 Hours 05/20/22 05/21/22 05/22/22 23:59 23:59 23:59 Intake Total 120 / 120 120 / 120 Output Total 400 / 400 Balance 120 / 120 -280 / -280 Cardiology Labs/Tests Rhythm: EKG: ECHO: Stress Test: Cardiac Cath: PCI: CT Surgery: Holter monitor: EPS: PPM: CXR: Chest CT Scan: Radiography Diagnostic Testing: Radiology Impression Chest X-Ray 05/22/22 05:55 IMPRESSION: No acute abnormality. No pneumothorax. Electronically Signed: Fareed Magaña MD at 5:27 EST , Physical Exam Const alert, oriented x3 and no apparent distress General Appearance: cooperative HEENT hearing grossly normal bilaterally Head and Scalp: atraumatic Eyes EOMs intact bilaterally Neck General: normal visual inspection Chest inspection of chest normal and palpation of chest normal Resp normal respiratory effort Auscultation: clear to auscultation bilaterally Cardio regular rate, regular rhythm, S1 normal heart sound and S2 normal heart sound Jugular Venous Distention: JVD GI normal to inspection, nondistended, normoactive bowel sounds Extremity normal capillary refill and no pedal edema Peripheral Pulses: Yes pulses 2+ throughout and femoral pulses present Skin no rashes or lesions noted Neuro oriented x3 and CN's II-XII intact bilaterally Psych Appearance: grossly normal and appropriate Assessment & Plan Assessment/Plan (1) Second degree AV block, Mobitz type I: PLAN: Patient has a history of second-degree type I AV block with occasional 2-1 and very prolonged OH interval. Due to his need to be on a beta-chiquita it was decided to put in a permanent pacemaker implantation. He did well with this. He would have follow-up in our office. (2) History of transcatheter aortic valve replacement (TAVR): PLAN: Patient is status post TAVR and doing well. Thank you for allowing me to participate in the care of your patient. Please don't hesitate to call if any issues arise.
--- NOTE | 2022-05-22 10:42 | DCINST_ITS ---
Discharge Instructions Diet Discharge Diet: No restrictions Activity Discharge Activity: May Not Drive Additional Activity Instructions:: May shower or bathe on [day 3]. Do not scrub the incision or soak in the tub. Just wash with soap and let the water run over the incision. Gently pat dry with towel. Medications: Take your pain medication as directed. Refer to your discharge instruction sheet for a list of medications you are to take. Dressing / Incision Call your doctor if your incision/area has: Continuous Slow Oozing, Sudden Increased Bleeding, Increased Pain/ Swelling, Increased Redness, Foul Smelling Discharge and Swelling at the incision site Call your doctor if you observe: Fever of 101 or Higher, Shortness of breath, Dizziness, Fainting spells, Swelling in the ankles, Chest pain, Prolonged hiccupping and Increased palpitations (irregular heartbeat) Suture Line Care: Avoid Pulling/Pushing and Avoid Pinching/Bending Additional Dressing/Incision Instructions:: When dressing is removed, wash and dry incision. Keep covered with a light bandage if it is rubbing against your clothing. Do not cover the incision with an airtight bandage. Change the bandage daily. Do not remove steri strips. The strips will fall off on their own. Follow Up Care Please Follow Up With: Juan Kumari MD When: Pacer follow up on June 04, 2022 at 9 AM Test Results: Test results from this visit will be discussed in further detail at your follow- up appointment, if applicable. Discharge Plan Admission Admit Date/Time: 05/21/22 15:47 Attending Provider: Juan Kumari Primary Care Provider: Anthony Reyes Discharge Orders/Prescriptions Prescriptions: No Action ibuprofen 200 mg capsule 200 mg PO Q6H PRN (Reason: Pain) rosuvastatin 20 mg tablet 20 mg PO DAILY venlafaxine 75 MG tablet 75 mg PO BID Label Comments: for drepression/anxiety aspirin 81 MG tablet,chewable 81 mg PO DAILY@0800 Label Comments: STATES STOPPED FOR PROCEDURE albuterol sulfate 1 INHALER inhaler 1 - 2 puff inhalation Q6H PRN PRN (Reason: Wheezing) metoprolol tartrate 50 mg tablet 50 mg PO BID Qty: 180 3RF Referrals / Follow Up: Anthony Reyes MD [Primary Care Provider] - Disposition Disposition (needs filled in before D/C Order can be placed): Home, Self Care
== END 2022-05-22 11:20 | disposition home or self-care (01) ==
LOC: CLSP 15:57 → ICU 15:57
PROVIDERS: Admitting Provider Internal Medicine Cardiovascular Disease; PCP Family Medicine; Referring Provider Internal Medicine Cardiovascular Disease; Visit Provider Internal Medicine Cardiovascular Disease
DX: I44.1 Atrioventricular block, second degree (principal); I48.0 Paroxysmal atrial fibrillation; I25.10 Atherosclerotic heart disease of native coronary artery without angina pectoris; G47.33 Obstructive sleep apnea (adult) (pediatric); R53.1 Weakness; R53.83 Other fatigue; Z79.899 Other long term (current) drug therapy; Z79.82 Long term (current) use of aspirin; Z86.16 Personal history of COVID-19; E78.5 Hyperlipidemia, unspecified; R00.1 Bradycardia, unspecified; Z95.2 Presence of prosthetic heart valve; Z45.018 Encounter for adjustment and management of other part of cardiac pacemaker
CPT/HCPCS: 33208; 71047; 99152; 99153; 99218; J7040; J7050; Q9967; A4216; C1894; G0378

== ENCOUNTER → 2022-09-27 | Outpatient (CLI) | payer MEDICARE, BC, SELFPAY ==
[2022-09-27 17:57] LABS: Absolute Lymphocyte Count 1.93 X10^3/uL (0.83-4.51); Absolute Neutrophil Count 2.7 X10^3/uL (2.0-7.7); Basophil# 0.04 X10^3/uL; Basophil% 0.7 % (0-1); Eosinophil# 0.16 X10^3/uL; Eosinophils% 2.9 % (0-5); Hematocrit 45.2 % (40-54); Hemoglobin 15.3 g/dL (13.0-16.5); Lymphocyte # 1.93 X10^3/ul (0.83-4.51); Lymphocyte % 35.4 % (19-41); Mean Corp Hgb Conc 33.8 g/dL (32-36); Mean Corpuscular Hgb 32.1 pg (27.0-32.0); Mean Corpuscular Volume 94.8 fL (80-94); Mean Platelet Vol. 9.9 fl (6.2-12.0); Monocyte# 0.57 X10^3/uL; Monocyte% 10.5 % (0-10); NRBC Flagged by Analyzer 0 % (0-5); Neutrophil # 2.74 X10^3/uL (2.7-7.7); Neutrophil % 50.3 % (47-70); Platelet Count 177 K/mm3 (150-450); RBC Distribution Width CV 12.9 % (11.6-14.6); RBC Distribution Width SD 44.5 fl (35.1-43.9); Red Blood Count 4.77 M/mm3 (4.6-6.2); White Blood Count 5.5 K/mm3 (4.4-11.0)
[2022-09-27 18:20] LABS: Hemoglobin A1c 6.2 % (3.8-5.6)
[2022-09-27 18:29] LABS: ALB/GLOB Ratio 0.9 RATIO (0.9-2.4); AST(SGOT) 22 U/L (15-37); Alanine Aminotransfer ALT/SGPT 25 U/L (16-61); Albumin, Serum 3.6 g/dL (3.2-5.0); Alkaline Phosphatase 96 U/L (45-117); Anion Gap 3 (5-15); BUN 18 mg/dL (7-18); BUN/Creat Ratio 18.9 RATIO (10-20); Calcium,Total 9.1 mg/dL (8.5-10.1); Chloride 103 mmol/L (98-107); Cholesterol 151 mg/dL (200); Creatinine, Serum 0.95 mg/dL (0.70-1.30); EST Glomerular Filtration Rate 82 mL/min (>60); Est Glom Filt Rate - Afr Amer 99 mL/min (>60); Glucose 166 mg/dL (74-106); High Density Lipoprotein 44 mg/dL; Potassium 4.1 mmol/L (3.5-5.1); Protein, Total 7.6 g/dL (6.4-8.2); Sodium Level 135 mmol/L (136-145); Triglycerides 224 mg/dL; Very Low Density Lipoprotein 45 mg/dL (5-40)
[2022-09-27 18:42] LABS: Microalbumin,Random Urine 8.4 mg/L (NO RANGE EST.); Microalbumin:Creatinine Ratio 4.2 mg/g CRE (<30 mg/g CRE)
== END | disposition home or self-care (01) ==
LOC: MFPLAB 15:52
PROVIDERS: PCP Family Medicine; Visit Provider Family Medicine
DX: E11.9 Type 2 diabetes mellitus without complications (principal)
CPT/HCPCS: 36415; 80053; 80061; 82043; 82570; 83036; 85025

== ENCOUNTER → 2023-02-12 | Outpatient (CLI) | payer MEDICARE, BC, SELFPAY ==
[2023-02-12 17:36] LABS: Absolute Lymphocyte Count 1.73 X10^3/uL (0.83-4.51); Absolute Neutrophil Count 3.3 X10^3/uL (2.0-7.7); Basophil# 0.04 X10^3/uL; Basophil% 0.7 % (0-1); Eosinophil# 0.11 X10^3/uL; Eosinophils% 1.9 % (0-5); Hematocrit 44.9 % (40-54); Hemoglobin 14.7 g/dL (13.0-16.5); Lymphocyte # 1.73 X10^3/ul (0.83-4.51); Lymphocyte % 29.9 % (19-41); Mean Corp Hgb Conc 32.7 g/dL (32-36); Mean Corpuscular Hgb 31.7 pg (27.0-32.0); Mean Platelet Vol. 10.1 fl (6.2-12.0); Monocyte# 0.62 X10^3/uL; Monocyte% 10.7 % (0-10); NRBC Flagged by Analyzer 0 % (0-5); Neutrophil # 3.28 X10^3/uL (2.7-7.7); Neutrophil % 56.6 % (47-70); Platelet Count 203 K/mm3 (150-450); RBC Distribution Width CV 12.5 % (11.6-14.6); RBC Distribution Width SD 44.5 fl (35.1-43.9); Red Blood Count 4.63 M/mm3 (4.6-6.2); White Blood Count 5.8 K/mm3 (4.4-11.0)
[2023-02-12 18:08] LABS: ALB/GLOB Ratio 0.9 RATIO (0.9-2.4); AST(SGOT) 23 U/L (15-37); Alanine Aminotransfer ALT/SGPT 31 U/L (16-61); Albumin, Serum 3.5 g/dL (3.2-5.0); Alkaline Phosphatase 100 U/L (45-117); Anion Gap 5 (5-15); BUN 13 mg/dL (7-18); BUN/Creat Ratio 12.9 RATIO (10-20); Calcium,Total 8.6 mg/dL (8.5-10.1); Chloride 105 mmol/L (98-107); Cholesterol 169 mg/dL (200); Creatinine, Serum 1.01 mg/dL (0.70-1.30); EST Glomerular Filtration Rate 77 mL/min (>60); Est Glom Filt Rate - Afr Amer 93 mL/min (>60); Globulin 3.7 g/dL (2.2-4.2); Glucose 149 mg/dL (74-106); High Density Lipoprotein 47 mg/dL; Magnesium 2.3 mg/dL (1.6-2.6); Potassium 4.4 mmol/L (3.5-5.1); Protein, Total 7.2 g/dL (6.4-8.2); Sodium Level 138 mmol/L (136-145); Triglycerides 241 mg/dL; Very Low Density Lipoprotein 48 mg/dL (5-40)
[2023-02-12 18:09] LABS: Hemoglobin A1c 6.3 % (3.8-5.6)
[2023-02-12 18:31] LABS: Microalbumin,Random Urine 24.9 mg/L (NO RANGE EST.); Microalbumin:Creatinine Ratio 11.1 mg/g CRE (<30 mg/g CRE)
== END | disposition home or self-care (01) ==
LOC: MFPLAB 15:06
PROVIDERS: PCP Family Medicine; Visit Provider Family Medicine
DX: I25.10 Atherosclerotic heart disease of native coronary artery without angina pectoris (principal); I48.91 Unspecified atrial fibrillation; E11.9 Type 2 diabetes mellitus without complications
CPT/HCPCS: 36415; 80053; 80061; 82043; 82570; 83036; 83735; 84443; 85025

== ENCOUNTER → 2023-04-18 | Outpatient (CLI) | payer MEDICARE, BC, SELFPAY | END | disposition home or self-care (01) | LOC: MFPLAB 16:49 | PROVIDERS: PCP Family Medicine; Visit Provider Family Medicine | DX: Z12.5 Encounter for screening for malignant neoplasm of prostate (principal) | CPT/HCPCS: 36415; 84153; G0103 ==

== ENCOUNTER 2023-06-30 06:14 | Day surgery (SDC) | payer MEDICARE, BC, SELFPAY ==
[2023-06-30] VITALS (7 sets, daily range): BP systolic 106–138; BP diastolic 70–100; PULSE 81–107; RESP 18–20; TEMP 36.1–36.7; O2SAT 94–100; BMI 35.6
--- NOTE | 2023-06-30 | GASB_PTH ---
PATHOLOGY RESULTS PATIENT: RAVIN JONES LOC: EN U#:[id number] AGE/SX: 77/M ROOM: RE06/30/[address]: Dr. Luis Madrigal MD : 1945 BED: DIS: 06/30/2023 SPEC #: [id number] RECD: 06/30/23 12:57 STATUS: DAMON SUN #: [id number] CRUZ: 06/30/23 00:[address]: Luis Madrigal DEPT: SURGICAL PATHOLOGY RECD BY: Isaac Choudhury ENTERED: 06/30/23 12:57 SP TYPE: Gastric Bx OTHR DR: Dr. Anthony Reyes MD Tissues: Gastric mucous membrane Cecum, NOS Procedures: Surgery Specimen Level IV HEADER OPERATION: Colonoscopy with polypectomy, EGD with biopsy PRE-OP DIAGNOSIS: Epigastric pain, screen for colon cancer TISSUE SUBMITTED: A - Gastric ulcer biopsy for H. pylori and path, B - Cecum polyp MICROSCOPIC DIAGNOSIS A. Gastric ulcer, biopsy: Mild gastritis. See microscopic description and comment. B. Cecum polyp, polypectomy: Minute fragments of colonic mucosa with cautery artifacts and changes suggestive of hyperplastic polyp. Fragments of fecal material. See comment. SJ:austyn 07/01/2023 COMMENT A. The results of immunohistochemistry for Helicobacter pylori will be reported separately ([id number]). B. The specimen predominantly consists of fecal material. MICROSCOPIC DESCRIPTION Slides are reviewed. A. The specimen shows fragments of gastric mucosa with chronic inflammatory cell infiltrates in the lamina propria consisting of lymphocytes and plasma cells, consistent with mild chronic gastritis. Focal mild mucosal congestion is also noted. GROSS DESCRIPTION A - Received in fixative is one container labeled with the patient's name and designated gastric ulcer biopsy. The specimen consists of multiple irregular fragments of light mcdaniel soft tissue that in aggregate measure 1.0 x 0.3 x 0.1 cm. The specimen is totally submitted in one cassette. B - Received in fixative is one container labeled with the patient's name and designated cecum polyp. The specimen consists of multiple irregular fragments of light mcdaniel soft tissue that in aggregate measure 1.0 x 0.4 x 0.1 cm. The specimen is totally submitted in one cassette. / ITALO:austyn 06/30/2023 TC:3 CPT: 33934 x2
--- OUTSIDE RECORDS SUMMARY | 2023-06-30 06:29 | XMS RPT_ITS | CCD ---
Author Name Unknown Address [address] [place] [address] Organization [facility] Care Team Providers Care Procurement Manager Name Role Phone PHYSICIAN, NONE Primary Care Physician Unavailab ehsan Au MD, Samina Zaman Primary Care Provider Angely ALVA, Samina Zaman Primary Care Provider SAMINA AU Primary Care Unavailable PRANAV BACON Attending Unavailable ANGELY, SAMINA Primary Care Unavailable GRACIELA SAINI Attending Unavailable ANGELY, SAMINA Primary Care Unavailable GRACIELA SAINI Attending Unavailable ANGELY, SAMINA Primary Care Unavailable GRACIELA SAINI Attending Unavailable SAMINA AU Referring Unavailable PRANAV BACON Attending Unavailable ANGELY, SAMINA Primary Care Unavailable PRANAV BACON Attending Unavailable PRANAV BACON Referring Unavailable SAMINA AU Primary Care Unavailable PRANAV BACON Attending Unavailable PRANAV BACON Referring Unavailable SAMINA AU Primary Care Unavailable GRACIELA SAINI Attending Unavailable GRACIELA SAINI Referring Unavailable ANGELY, SAMINA Primary Care Unavailable GRACIELA SAINI Referring Unavailable SAMINA AU Primary Care Unavailable GRACIELA SAINI Attending Unavailable PRANAV BACON Attending Unavailable PRANAV BACON Referring Unavailable SAMINA AU Primary Care Unavailable Medications Current Medications Medication Drug Class(es) Dates Sig (Normalized) Sig (Original) amoxicillin 500 mg oral capsule (16 sources) Penicillin-class Antibacterial Start: 10-04-2022 amoxicillin (Amoxil) 500 MG capsule Indications: S/P TAVR (transcatheter aortic valve replacement) Take 4 caps (2000 mg) 1 hour prior to procedure. 4 capsule 5 10/04/2022 Active apixaban 5 mg oral tablet (13 sources) Factor Xa Inhibitor Start: 12-26-2022 take 1 tablet by mouth twice daily Eliquis 5 MG tablet Take 5 mg by mouth 2 times daily. 0 12/26/2022 Active aspirin 81 mg chewable tablet (14 sources) Platelet Aggregation Inhibitor, Nonsteroidal Anti-inflammatory Drug Start: 05-14-2022 End: 05-14-2023 aspirin 81 MG chewable tablet Chew 1 tablet (81 mg) daily. 30 tablet 11 05/14/2022 05/14/2023 Active diazePAM 10 mg oral tablet (9 sources) Benzodiazepine Start: 03-12-2023 take 1 tablet by mouth once, then take 1 tablet by mouth every two hours diazePAM (Valium) 10 MG tablet Indications: Confusion and disorientation Take 1 tablet (10 mg) by mouth Once for 1 dose. 2 hours prior to the MRI 1 tablet 0 03/12/2023 Active donepezil hydrochloride 5 mg oral tablet (7 sources) Start: 03-27-2023 End: 05-05-2024 take 1 tablet by mouth at dinner donepezil (Aricept) 5 MG tablet Indications: Mild cognitive impairment with memory loss TAKE 1 TABLET (5 MG) BY MOUTH WITH EVENING MEAL. 90 tablet 1 05/06/2023 05/05/2024 Active Ibuprofen (13 sources) Nonsteroidal Anti-inflammatory Drug Ibuprofen (IBU PO) Take by mouth. otc 0 Active losartan potassium 50 mg oral tablet (14 sources) Angiotensin 2 Receptor Dejuan Start: 11-07-2022 End: 11-07-2023 take 1 tablet by mouth once daily losartan (Cozaar) 50 MG tablet Take 1 tablet (50 mg) by mouth daily. 90 tablet 3 11/07/2022 11/07/2023 Active metFORMIN hydrochloride 500 mg oral tablet (17 sources) Biguanide metFORMIN (Glucophage) 500 MG tablet Take by mouth. Tablet for 7 days then increase to 2 tabs daily 0 Active metoprolol tartrate 50 mg oral tablet (18 sources) beta-Adrenergic Dejuan Start: 01-31-2022 take 1 tablet by mouth in the morning metoprolol tartrate (Lopressor) 50 MG tablet Take 50 mg by mouth in the morning and 50 mg before bedtime. 0 01/31/2022 Active Completed/Discontinued Medications Medication Drug Class(es) Dates Sig (Normalized) Sig (Original) lidocaine 0.05 mg/mg medicated patch (2 sources) Antiarrhythmic, Amide Local Anesthetic Start: 08-05-2019 End: 10-11-2019 lidocaine 5% topical patch Apply 1 patch(es), Topical, Daily, # 14 patch(es), 0 Refill(s), 100 Start Date: 09/27/19 Stop Date: 10/11/19 Status: Ordered perflutren lipid microspheres (Definity) injection 1.65 mg (1 source) Start: 11-07-2022 End: 11-07-2022 perflutren lipid microspheres (Definity) injection 1.65 mg traMADol hydrochloride 50 mg oral tablet (1 source) Opioid Agonist Start: 08-05-2019 End: 08-08-2019 Ultram 50 mg oral tablet Dose : 50 mg = 1 tab(s), Oral, q4h, PRN for pain, # 18 tab(s), 0 Refill(s), Acute sciatica, 100 Start Date: 08/05/19 Stop Date: 08/08/19 Status: Ordered Problems Active Problems Problem Classification Problem Date Documented Da te Episodic/Chronic Cardiac dysrhythmias (17 sources) Atrial flutter; Translations: [Unspecified atrial flutter] Onset: 05-06-2022 05-06-2022 Chronic Conduction disorders (20 sources) Cardiac pacemaker in situ; Translations: [Presence of cardiac pacemaker] Onset: 07-25-2022 07-25-2022 Chronic Coronary atherosclerosis and other heart disease (17 sources) Coronary arteriosclerosis; Translations: [Atherosclerotic heart disease of [place] coronary artery without angina pectoris] Onset: 07-25-2022 07-25-2022 Chronic Essential hypertension (18 sources) Essential hypertension; Translations: [Essential (primary) hypertension] Onset: 11-07-2022 11-07-2022 Chronic Heart valve disorders (20 sources) History of aortic valve replacement; Translations: [Presence of prosthetic heart valve] Onset: 04-09-2022 Chronic Other hereditary and degenerative nervous system conditions (8 sources) Mild cognitive impairment, so stated; Translations: [Mild cognitive impairment, so stated] Onset: 03-27-2023 01-09-2023 Chronic Other upper respiratory infections (1 source) Acute upper respiratory infection; Translations: [Acute upper respiratory infection, unspecified] Onset: 05-25-2021 Episodic Residual codes; unclassified (4 sources) Obstructive sleep apnea syndrome; Translations: [Obstructive sleep apnea (adult) (pediatric)] 01-09-2023 Chronic Residual codes; unclassified (2 sources) Obstructive sleep apnea (adult) (pediatric); Translations: [Obstructive sleep apnea (adult) (pediatric)] Onset: 03-27-2023 Chronic Residual codes; unclassified (5 sources) Clouded consciousness; Translations: [Disorientation, unspecified] 01-09-2023 Episodic Past or Other Problems Problem Classification Problem Date Documented Da te Episodic/Chronic Other lower respiratory disease (3 sources) Dyspnea; Translations: [Shortness of breath] Onset: 11-07-2022 Episodic Other lower respiratory disease (1 source) Shortness of breath; Translations: [Shortness of breath] Onset: 11-07-2022 Episodic Residual codes; unclassified (2 sources) Disorientation, unspecified; Translations: [Disorientation, unspecified] Onset: 01-09-2023 Episodic Results Test Name Value Interpretation Reference Range Facil ity Vital Signs Date Time Vital Sign Value Performing Clinician Faci lity 03-27-2023 08:39-0400 Body mass index (BMI) [Ratio] 35.98 kg/m2 Pranav Bacon MD Work Phone: [facility] 03-27-2023 08:39-0400 Body weight 117.03 kg Pranav Bacon MD Work Phone: [facility] 03-27-2023 08:39-0400 Diastolic blood pressure 88 mm[Hg] Pranav Bacon MD Work Phone: [facility] 03-27-2023 08:39-0400 Heart rate 80 /min Pranav Bacon MD Work Phone: [facility] 03-27-2023 08:39-0400 Systolic blood pressure 138 mm[Hg] Pranav Bacon MD Work Phone: [facility] 03-19-2023 10:35-0400 Heart rate 70 /min Pranav Bcaon MD Work Phone: [facility] 03-19-2023 10:35-0400 SaO2% (BldA) [Mass fraction] 96 % Pranav Bacon MD Work Phone: [facility] 03-19-2023 10:20-0400 Diastolic blood pressure 65 mm[Hg] Pranav Bacon MD Work Phone: [facility] 03-19-2023 10:20-0400 Systolic blood pressure 113 mm[Hg] Pranav Bacon MD Work Phone: [facility] 01-09-2023 11:24-0400 Body mass index (BMI) [Ratio] 34.73 kg/m2 Pranav Bacon MD Work Phone: [facility] 01-09-2023 11:24-0400 Body weight 112.95 kg Pranav Bacon MD Work Phone: [facility] 01-09-2023 11:24-0400 Diastolic blood pressure 76 mm[Hg] Pranva Bacon MD Work Phone: [facility] 01-09-2023 11:24-0400 Heart rate 69 /min Pranav Bacon MD Work Phone: [facility] 01-09-2023 11:24-0400 Systolic blood pressure 150 mm[Hg] Pranav Bacon MD Work Phone: [facility] 11-07-2022 10:14-0400 Body height 180.3 cm Graciela Saini APRN - INFORMATION STRATEGIST Work Phone: [facility] 11-07-2022 10:14-0400 Body mass index (BMI) [Ratio] 35.34 kg/m2 Graciela Saini APRN - INFORMATION STRATEGIST Work Phone: [facility] 11-07-2022 10:14-0400 Body weight 114.94 kg Graciela Saini APRN - INFORMATION STRATEGIST Work Phone: [facility] 11-07-2022 10:14-0400 Diastolic blood pressure 88 mm[Hg] Graciela Saini APRN - INFORMATION STRATEGIST Work Phone: [facility] 11-07-2022 10:14-0400 Heart rate 68 /min Graciela Saini APRN - INFORMATION STRATEGIST Work Phone: [facility] 11-07-2022 10:14-0400 SaO2% (BldA) [Mass fraction] 96 % Graciela Saini APRN - INFORMATION STRATEGIST Work Phone: [facility] 11-07-2022 10:14-0400 Systolic blood pressure 148 mm[Hg] Graciela Saini QUALITY RN - INFORMATION STRATEGIST Work Phone: [facility] 11-07-2022 08:50-0400 Body height 180.3 cm Graciela Saini QUALITY RN - INFORMATION STRATEGIST Work Phone: [facility] 11-07-2022 08:50-0400 Body mass index (BMI) [Ratio] 34.45 kg/m2 Graciela Saini QUALITY RN - INFORMATION STRATEGIST Work Phone: [facility] 11-07-2022 08:50-0400 Body weight 112.04 kg Graciela Saini QUALITY RN - INFORMATION STRATEGIST Work Phone: [facility] 05-25-2021 12:36-0500 Body temperature 100.4 [degF] DR RAVIN GREGORIO MD [facility] 05-25-2021 12:36-0500 Diastolic blood pressure 77 mm[Hg] DR RAVIN GREGORIO MD [facility] 05-25-2021 12:36-0500 Heart rate 79 /min DR RAVIN GREGORIO MD [facility] 05-25-2021 12:36-0500 Respiratory rate 18 /min DR RAVIN GREGORIO MD [facility] 05-25-2021 12:36-0500 Systolic blood pressure 137 mm[Hg] DR RAVIN GREGORIO MD [facility] Encounters Encounter Date Encounter Type Care Provider Facility Start: 06-23-2023 Telephone encounter Pranav bardales MD Work Phone: [facility] Procedures Date Procedure Procedure Detail Performing Clinician Start: 03-19-2023 Mri brain brain stem w/o contrast material Pranav Bacon MD Work Phone: Start: 01-09-2023 Cyanocobalamin vitamin b-12 Pranav Bacon MD Work Phone: Start: 01-09-2023 Syphilis test non-treponemal antibody qual Pranav Bacon MD Work Phone: Start: 01-09-2023 Thyrotropin [Units/v olume] in Serum or Plasma Pranav Bacon MD Work Phone: Start: 11-07-2022 Ecg routine ecg w/le ast 12 lds trcg only w/o i&r Rocco Garcia MD Work Phone: Start: 11-07-2022 TTE w or wo fol wcon,Doppler Graciela L Poli QUALITY RN - INFORMATION STRATEGIST Work Phone: Hemorrhoids (disorder) DR ALLIE GREGORIO MD Plan of Treatment Date Care Activity Detail Author Start: 04-29-2028 DTaP/Tdap/Td Vaccines (2 - Td or Tdap) DTaP/Tdap/Td Vaccines (2 - Td or Tdap) [facility] Start: 08-18-2023 End: 08-18-2023 Patient encounter procedure 08/18/2023 10:00 AM EDT Office Visit [facility] [address] [phone] Pranav Bacon MD [address] [address] [facility] Start: 06-25-2023 End: 06-25-2023 Patient encounter procedure 06/25/2023 7:30 AM EST Office Visit [facility] [address] [phone] Pranav Bacon MD [address] [address] [facility] Start: 03-27-2023 End: 03-27-2023 Patient encounter procedure 03/27/2023 8:30 AM EDT Office Visit [facility] Neuroscience [address] [place] [phone] Pranav Bacon MD [address] [place] [address] [facility] Start: 03-19-2023 End: 03-19-2023 Patient encounter procedure 03/19/2023 10:15 AM EDT Appointment [facility] [address] [place] [address] [facility] [address] Start: 02-26-2023 End: 02-26-2023 Clinical Support 02/26/2023 10:00 AM EDT Clinical Support [facility] [address] [place] [address] Pranav Bacon MD [address] [facility] [address] [place] [address] [facility] Start: 01-31-2023 Influenza vaccination [facility] Start: 01-09-2023 End: 01-10-2024 Home sleep test Home sleep test Sleep Center Routine Obstructive sleep apnea Expected: 01/09/2023 (Approximate), Expires: 01/10/2024 [facility] Work Phone: Payers Date Payer Category Payer Unknown RHONA Sanchez ANTH MEDICARE SUPPLEMENT [id number] 2017-Present [address] [place] [address] Supplement [id number] 2017 Unknown [id number] 2012 Medicare MEDICARE MEDICAR E PART A AND B [id number] 2012-Present [address] [place] [address] Medicare [id number] 2012 Medicare [id number] Social History Date Type Detail Facility Start: 08-05-2019 End: 04-09-2022 Never smoked tobacco (finding) [facility] Sex Assigned At Male [facility] Start: 04-09-2022 Tobacco use and exposure Smokeless tobacco non-user [facility] Start: 07-25-2022 End: 03-27-2023 Alcohol intake Ex-drinker (finding) [facility] Start: 1945 Sex Assigned At Not on file [facility] Start: 07-15-2022 End: 02-06-2023 Exposure to SARS-CoV-2 (event) Not sure [facility] Start: 11-07-2022 End: 03-27-2023 History of Social function [facility] Start: 11-07-2022 End: 03-27-2023 Tobacco use panel [facility] Medical Equipment Procedure Code Equipment Code Equipment Origin al Text Equipment Identifier Dates Valve Jammie Xt Nf 26mm - [id number] Start: 05-13-2022 Lead-05/21/2022 [id number] Start: 05-21-2022 Clinical Notes 05-25-2021 to 06-25-2023 Telephone Encounter - Danielle Elliott MA - 06/25/2023 8:11 AM ESTTelephone Encounter - Danielle Elliott MA - 06/25/2023 8:11 AM ESTTelephone Encounter - Danielle Elliott MA - 06/24/2023 8:25 AM EST Note Date & Type Note Facility 06-25-2023 Telephone encounter Note Lm for Maren to call the office back, please relay providers message. [facility] 06-25-2023 Miscellaneous Notes Lm for Maren to call the office back, please relay providers message. Lm for Maren to call the office back, please relay providers message. He does not get Eliquis from this office Name of caller: Maren Contact phone number: [phone] Relationship to Patient: patient Provider: Dr. Bacon Practice: [facility] Chief Complaint/Reason for Call: Maren states Eliquis 5 MG tablet is no longer covered by pts insurance. Pt would like to know if an alternative medication can be prescribed. Please advise. Best time of day caller can be reached: any Patient advised that office/PCP has 24-48 business hours to return their call: N/A documented in this encounter [facility] 06-24-2023 Telephone encounter Note Lm for Maren to call the office back, please relay providers message. [facility] 06-24-2023 Miscellaneous Notes Lm for Maren to call the office back, please relay providers message. He does not get Eliquis from this office Name of caller: Maren Contact phone number: [phone] Relationship to Patient: patient Provider: Dr. Bacon Practice: [facility] Chief Complaint/Reason for Call: Maren states Eliquis 5 MG tablet is no longer covered by pts insurance. Pt would like to know if an alternative medication can be prescribed. Please advise. Best time of day caller can be reached: any Patient advised that office/PCP has 24-48 business hours to return their call: N/A documented in this encounter [facility] 06-23-2023 Telephone encounter Note He does not get Eliquis from this office [facility] 06-23-2023 Miscellaneous Notes He does not get Eliquis from this office Name of caller: Maren Contact phone number: [phone] Relationship to Patient: patient Provider: Dr. Bacon Practice: [facility] Chief Complaint/Reason for Call: Maren states Eliquis 5 MG tablet is no longer covered by pts insurance. Pt would like to know if an alternative medication can be prescribed. Please advise. Best time of day caller can be reached: any Patient advised that office/PCP has 24-48 business hours to return their call: N/A documented in this encounter [facility] 06-23-2023 Telephone encounter Note Name of caller: Maren Contact phone number: [phone] Relationship to Patient: patient Provider: Dr. Bacon Practice: [facility] Chief Complaint/Reason for Call: Maren states Eliquis 5 MG tablet is no longer covered by pts insurance. Pt would like to know if an alternative medication can be prescribed. Please advise. Best time of day caller can be reached: any Patient advised that office/PCP has 24-48 business hours to return their call: N/A [facility] 05-06-2023 Telephone encounter Note Last ov- 03/27/23 Next ov- 06/25/23 [facility] 05-06-2023 Miscellaneous Notes Last ov- 03/27/23 Next ov- 06/25/23 documented in this encounter [facility] 03-27-2023 History of Presen t illness Narrative Images from the original note were not included. [facility] [address] [place] [address] [facility] [address] Dept: [phone] Dept Loc: [phone] Pranva Bacon MD CHIEF COMPLAINT: Chief Complaint Patient presents with Follow-up Memory Loss HISTORY OF PRESENT ILLNESS: The patient is a 77 y.o. person who presents with memory loss and fatigue. Stage Mild: 1 No difficulty, either subjectively or objectively. 2 Complains of forgetting location of objects. Subjective work difficulties. 3 Decreased job functioning evident to co-workers. Difficulty in traveling to new locations. Decreased organizational capacity. 4 Decreased ability to perform complex tasks, e.g. planning dinner for guests, handling personal finances (such as forgetting to pay bills), difficulty marketing, etc.* Ask informant to rate the patient's ability using the following scoring system: Dependent= 3 Requires Assistance= 2 Has difficulty but does by self= 1 Normal= 0 Never did the activity but could do now= 0 Never did and would have difficulty now= 1 Score Writing checks, paying bills, balancing checkbook 0 Assembling tax records, business affairs, or papers 1 Shopping alone for clothes, household necessities or groceries 1 Playing a game of skill, working on a hobby 1 Heating water, making a cup of coffee turning off stove after use 0 Preparing a balanced meal 0 Keeping track of current events 0 Paying attention to, understanding, discussing TV, book, magazine 1 Remembering appointments, family occasions, holidays, medications 2 Traveling out of neighborhood, driving, arranging to take a bus 3 Total Score 9 Evaluation Sum scores (range 0-30). Cut-point of 9 (dependent in 3 or more activities) is recommended to indicate impaired function and possible cognitive impairment. 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 His family reports that he is getting progressively worse. Family brought up concern about him being sleepy all of the time and spending 16 hours of the day. The patient reports excessive daytime sleepiness. The patient goes to bed around [place]. It takes more than 30 min to fall asleep. The patient gets up for the day at 7 30AM. The patient does not feel refreshed upon awakening. The patient estimations 1 arousals per sleep period. The patient reports/denies jerking of the limbs during sleep. Snoring?Yes Tired? (Tired, Fatigued, or Sleepy during the daytime) Yes Observed? (Stop Breathing or Choking/Gasping during your sleep) Yes Pressure? (High blood pressure meds?)Yes Body Mass Index is 28 or greater?Yes Age greater than 50?Yes Neck size (Men >17 in, Women >16 in)Yes Gender Male?Yes STOP BANG score 8 Takes hours of naps until noon. He has tried PAP therapy twice in the past and did not tolerate it. Past Medical History: has a past medical history of Aortic stenosis, severe, Atrial fibrillation (), Hemothorax (2011), atrial flutter, Hyperlipidemia, Left bundle branch block, CLAIRE (obstructive sleep apnea), and Syncope. Past Surgical History: has a past surgical history that includes Loop recorder evaluation (2011); Laminectomy (12/11/2021); Nasal septum surgery; Cardiac catheterization (03/04/2022); CTA HEART CORONARY ANGIOGRAM WITH PROV FFR-CT (04/16/2022); and Cardiac catheterization (N/A, 05/13/2022). Medications: Current Outpatient Medications: aspirin 81 MG chewable tablet, Chew 1 tablet (81 mg) daily., Disp: 30 tablet, Rfl: 11 cyanocobalamin (Vitamin B-12) 1000 MCG tablet, Take 1 tablet (1,000 mcg) by mouth daily (with breakfast)., Disp: 30 tablet, Rfl: 11 Eliquis 5 MG tablet, Take 5 mg by mouth 2 times daily., Disp: , Rfl: Ibuprofen (IBU PO), Take by mouth. otc, Disp: , Rfl: losartan (Cozaar) 50 MG tablet, Take 1 tablet (50 mg) by mouth daily., Disp: 90 tablet, Rfl: 3 metFORMIN (Glucophage) 500 MG tablet, Take by mouth. Tablet for 7 days then increase to 2 tabs daily, Disp: , Rfl: metoprolol tartrate (Lopressor) 50 MG tablet, Take 50 mg by mouth in the morning and 50 mg before bedtime., Disp: , Rfl: rosuvastatin (Crestor) 20 MG tablet, Take 1 tablet (20 mg) by mouth Nightly., Disp: 30 tablet, Rfl: 2 venlafaxine (Effexor) 75 MG tablet, Take 75 mg by mouth in the morning and 75 mg before bedtime., Disp: , Rfl: amoxicillin (Amoxil) 500 MG capsule, Take 4 caps (2000 mg) 1 hour prior to procedure. (Patient not taking: Reported on 01/09/2023), Disp: 4 capsule, Rfl: 5 diazePAM (Valium) 10 MG tablet, Take 1 tablet (10 mg) by mouth Once for 1 dose. 2 hours prior to the MRI, Disp: 1 tablet, Rfl: 0 Allergies: Patient has no known allergies. Social History: Social History Socioeconomic History Marital status: Spouse name: Not on file Number of children: Not on file Years of education: Not on file Highest education level: Not on file Occupational History Not on file Tobacco Use Smoking status: Never Smokeless tobacco: Never Substance and Sexual Activity Alcohol use: Not Currently Drug use: Never Sexual activity: Not on file Other Topics Concern Not on file Social History Narrative Not on file Social Determinants of Health Financial Resource Strain: Not on file Food Insecurity: Not on file Transportation Needs: Not on file Physical Activity: Not on file Stress: Not on file Social Connections: Not on file Intimate Partner Violence: Not on file Housing Stability: Not on file Family History: Family History Problem Relation Name Age of Onset No Known Problems Mother No Known Problems Father REVIEW OF SYSTEMS: Review of Systems Constitutional: Negative for appetite change, chills, diaphoresis, fever and unexpected weight change. HENT: Negative for dental problem and mouth sores. Eyes: Negative for discharge and itching. Respiratory: Negative for chest tightness. Cardiovascular: Negative for chest pain and leg swelling. Gastrointestinal: Negative for rectal pain and vomiting. Endocrine: Negative for polydipsia, polyphagia and polyuria. Genitourinary: Negative for decreased urine volume, flank pain and genital sores. Musculoskeletal: Negative for arthralgias. Skin: Negative for color change. Allergic/Immunologic: Negative for food allergies and immunocompromised state. Neurological: Hypersomnia, Memory Loss Hematological: Negative for adenopathy. Does not bruise/bleed easily. Psychiatric/Behavioral: Negative for agitation, behavioral problems, decreased concentration, sleep disturbance and suicidal ideas. PHYSICAL EXAM: Vitals: BP 138/88 (BP Location: Right arm) Pulse 80 Wt 258 lb (117 kg) BMI 35.98 kg/m General Appearance: Patient is in no apparent distress. Head is normocephalic, atraumatic Cardiovascular: Regular rate and rhythm. No heart murmurs. No carotid bruit Neurologic: Mentation: Alert and oriented x 3 to person, place and time. Speech and Language: Speech and language normal Concentration and Attention: Concentration normal Memory: Memory 5/5 immediate, 2/5 delayed Fund of Knowledge: Fund of knowledge normal Cranial Nerves: II, III, IV, V, , VII, VIII, IX, X, XI, XII tested and were intact including fundoscopic exam (optic discs) and visual field to confrontation. Motor: Strength: Strength 5 out of 5 with normal tone Alternating Movements: Normal Cogwheel Rigidity: None Tone: Tone is normal Tremor / Involuntary Movements: None Deep Tendon Reflexes: 1 out of 4 symmetrical in all four limbs. Coordination: Normal coordination upper and lower extremities Gait and Station: Gait and Station is normal DATA No results found for: PHENYTOIN , PHENOBARB , VALPROATE , CBMZ Lab Results Component Value Date WBC 5.7 07/25/2022 HGB 14.6 07/25/2022 HCT 42.5 07/25/2022 PLT 180 07/25/2022 ALT 24 04/16/2022 AST 37 04/16/2022 NA 136 07/25/2022 K 4.1 07/25/2022 CL 101 07/25/2022 CREATININE 0.90 07/25/2022 BUN 15 07/25/2022 CO2 28 07/25/2022 TSH 1.49 01/09/2023 INR 1.1 05/13/2022 @LASTAPPOINTMENTTHISPROV@ [facility] wo contrast Narrative: Patient Name: RAVIN JONES : 1945 Exam Date/Time: 03/19/2023 10:49 Procedure: MR BRAIN WO CONTRAST Ordering Provider: BACON JAMES Reason For Exam: Mental status change, unknown cause MRI BRAIN: CLINICAL INDICATION: Dementia TECHNIQUE: Sagittal T1, coronal T2, transaxial T2, FLAIR, gradient echo and diffusion weighted sequences performed through the brain COMPARISON: None. FINDINGS: The study is significantly limited due to patient motion artifact. Within this context: Ventricular system and Extra-axial spaces: Generalized enlargement of the ventricles and sulci is noted without extracerebral collection with mass effect. Cerebral and cerebellar parenchyma: There is a mild burden of T2/FLAIR hyperintense foci within the periventricular and deep white matter, nonspecific but suggestive of chronic small vessel ischemic changes. Prominent perivascular spaces are also observed.. Brainstem: Normal. Sella turcica and pituitary: Normal. Vascular system: Normal signal void is noted within the major intracranial vessels. Paranasal sinuses: Clear. Mastoid air cells: Normal. Orbits: Normal. Impression: Diminished cerebral volume and evidence of chronic white matter small vessel ischemic change without acute intracranial abnormality. Report Dictated on Electronically Signed By: Dean Carrillo MD Electronically Signed Date/Time: 03/19/2023 2:36 PM EDT No results found for: LEVETIRACETA , FERRITIN , CRP , JOSE , ANCA No components found for: TOPIRA No results found for: BRIJESH , IMMUNOGLOBUL , OLIGOBANDS VITAMIN B12 Date Value Ref Range Status 01/09/2023 293 200 - 1,100 pg/mL Final Comment: Please Note: Although the reference range for vitamin B12 is 200-1100 pg/mL, it has been reported that between 5 and 10% of patients with values between 200 and 400 pg/mL may experience neuropsychiatric and hematologic abnormalities due to occult B12 deficiency; less than 1% of patients with values above 400 pg/mL will have symptoms. No results found for: [id number] , HEPCAB Patient Name: RAVIN JONES : 1945 Exam Date/Time: 03/19/2023 10:49 Procedure: MR BRAIN WO CONTRAST Ordering Provider: BACON JAMES Reason For Exam: Mental status change, unknown cause MRI BRAIN: CLINICAL INDICATION: Dementia TECHNIQUE: Sagittal T1, coronal T2, transaxial T2, FLAIR, gradient echo and diffusion weighted sequences performed through the brain COMPARISON: None. FINDINGS: The study is significantly limited due to patient motion artifact. Within this context: Ventricular system and Extra-axial spaces: Generalized enlargement of the ventricles and sulci is noted without extracerebral collection with mass effect. Cerebral and cerebellar parenchyma: There is a mild burden of T2/FLAIR hyperintense foci within the periventricular and deep white matter, nonspecific but suggestive of chronic small vessel ischemic changes. Prominent perivascular spaces are also observed.. Brainstem: Normal. Sella turcica and pituitary: Normal. Vascular system: Normal signal void is noted within the major intracranial vessels. Paranasal sinuses: Clear. Mastoid air cells: Normal. Orbits: Normal. IMPRESSION: Diminished cerebral volume and evidence of chronic white matter small vessel ischemic change without acute intracranial abnormality. Report Dictated on Electronically Signed By: Dean Carrillo MD Electronically Signed Date/Time: 03/19/2023 2:36 PM EDT VITAMIN B12 200 - 1,100 pg/mL 293 Home Sleep Apnea Testing (HSAT) Report Patient Name: Ravin Jones Study Date: 02/26/2023 : 1945 Study Location: [facility] Referring Provider: Pranav Bacon ASSET MANAGEMENT LEAD#: [id number] Reading Physician: Pranav Bacon The patient is a 77 year-old Male who is 5' 11 and weighs 250.0 lbs. The BMI equals 35.0. Sleep History: history of claire, eds, memory loss ESS: STOP BANG 8 Current medications include: aspirin, Eliquis, Cozaar, Lopressor, Crestor, Effexor, Glucophage Medical history includes: A-fib/flutter, claire, EDS Procedure This was an unattended study performed using an [employer] device. The patient received instruction on use of the device by a registered electro mechanical technologist. Monitored parameters included: airflow via nasal pressure transducer, chest and abdominal effort via RIP belts, oxygen saturation via pulse oximetry, heart rate, snoring, and body position. The study was deemed technically adequate unless otherwise noted. Scoring Methodology Apneas were scored when there was an absence of airflow > 10 seconds. Hypopneas were scored based off a > 30% reduction in airflow amplitude with a 4% oxygen desaturation for > 10 seconds, in accordance with published AASM and/or CMS guidelines. Study Overview Sleep is assumed for the entire study. Monitoring time = total recording time minus periods of artifact and time the patient was assumed to be awake based on body position, other signal sensors, and/or respiratory pattern. Scoring of the study is based off monitoring time. Recording Time: 907.4 min. Monitoring Time: 489.0 min. Analysis Start: 09:44:38 PM Supine Time: 165.0 min. Analysis Stop: 05:53:35 AM Respiratory Events Respiratory event index (EDVIN) = total number of respiratory events x 60/monitoring time. EDVIN is a surrogate for AHI. Snoring was present. Count Index Time EDVIN Obstructive Apnea 9 1.1 Supine 165.0 min. 39.6 Mixed Apnea - - Off Supine 324.0 min. 6.7 Central Apnea - - Total 489.0 min. 17.8 Total Apneas 9 1.1 Hypopneas 136 16.7 Total Apneas and Hypopneas 145 17.8 Patient Name: Ravin Jones Study Date: 02/26/2023 Oxygen Saturation Average SpO2: 92.7% Desaturation Count: 170 Minimum SpO2: 69.0% Desaturation Index: 20.9 Maximum SpO2: 98.0% Time Spent ?88% SpO2: 38.5 min. (7.9%) Cardiac Summary Average Pulse Rate 61.0 bpm Minimum Pulse Rate 58.0 bpm Maximum Pulse Rate 95.0 bpm Impression: This study demonstrates moderate obstructive sleep apnea. Recommendations: Recommend an in-lab PAP titration study to control this patient's obstructive sleep apnea. The patient should be counseled regarding the metabolic and cardiac risks of untreated sleep apnea. The patient should refrain from the operation of heavy machinery and driving if hypersomnolence is present. Avoid alcohol, sedatives, and hypnotics as these can worsen obstructive events. Recommend maintenance of ideal body weight to assist with overall health. Continue follow-up with ordering provider and consider referral to sleep medicine. Diagnoses: Obstructive Sleep Apnea Syndrome: G47.33 Choose an item. Procedure: Type 3 portable monitor: 05764 ASSESSMENT AND PLAN Problem List Items Addressed This Visit None Visit Diagnoses Mild cognitive impairment with memory loss - Primary Obstructive sleep apnea Donepezil 5 mg po QPM He cannot tolerate anything on his face when he tried PAP therapy before. Referral to ENT for [facility]. I spent 45 minutes caring for this patient today, reviewing labs and records, seeing the patient, documenting in the record and arranging for studies. documented in this encounter [facility] 03-19-2023 Nurse Note Patient to MRI for scan. Patient's medical history, allergies and medications reviewed. Patient has a history of 1st degree AV block, atrial flutter. Abott rep here to place patient in DOO/ safe mode with a rate of 70. See flowsheets for vitals. MRI completed. Abott, rep, placed patient back in pre MRI settings. [facility] 03-19-2023 Nurse Note Patient to MRI for scan. Patient's medical history, allergies and medications reviewed. Patient has a history of 1st degree AV block, atrial flutter. Abott rep here to place patient in DOO/ safe mode with a rate of 70. See flowsheets for vitals. MRI completed. Abott, rep, placed patient back in pre MRI settings. documented in this encounter [facility] 03-12-2023 Telephone encounter Note Maren has been notified [facility] 03-12-2023 Miscellaneous Notes Maren has been notified Rx sent to [facility] Name of caller: Maren Contact phone number: [phone] Relationship to Patient: family member patient and daughter Provider: Kush Hurst Practice: Neurology Chief Complaint/Reason for Call: Maren states that Ravin is scheduled for an MRI on 03/19/23 and has claustrophobia. Maren would like to know if Dr. Bacon could prescribe something for Ravin to take the day of his MRI to calm his nerves. Please advise. Best time of day caller can be reached: Any Patient advised that office/PCP has 24-48 business hours to return their call: No documented in this encounter [facility] 03-12-2023 Telephone encounter Note Rx sent to [facility] 03-12-2023 Telephone encounter Note Name of caller: Maren Contact phone number: [phone] Relationship to Patient: family member patient and daughter Provider: Kush Hurst Practice: Neurology Chief Complaint/Reason for Call: Maren states that Ravin is scheduled for an MRI on 03/19/23 and has claustrophobia. Maren would like to know if Dr. Bacon could prescribe something for Ravin to take the day of his MRI to calm his nerves. Please advise. Best time of day caller can be reached: Any Patient advised that office/PCP has 24-48 business hours to return their call: No [facility] 02-07-2023 Telephone encounter Note Contacted Maren and answered all questions [facility] 02-07-2023 Miscellaneous Notes Contacted Maren and answered all questions Name of caller: Maren Contact phone number: [phone] Relationship to Patient: daughter Provider: DR Bacon Practice: [facility] Chief Complaint/Reason for Call: please call nori Engel to discuss mri scheduling and about turning the pacemaker off. She is waiting for a date for the mri first before contacting cardiology for the pacemaker question. Sleep study is done. Best time of day caller can be reached: AM Patient advised that office/PCP has 24-48 business hours to return their call: Yes Spoke with patient and answered all questions. Name of caller: Maren Contact phone number: [phone] Relationship to Patient: daughter Provider: DR bacon Practice: [facility] Chief Complaint/Reason for Call: pts daughter is calling to help him schedule his home sleep study and mri. His pacemaker will also need turned off for the mri. Please call Maren to discuss. Best time of day caller can be reached: AM Patient advised that office/PCP has 24-48 business hours to return their call: Yes documented in this encounter [facility] 02-07-2023 Telephone encounter Note Name of caller: Maren Contact phone number: [phone] Relationship to Patient: daughter Provider: DR Bacon Practice: [facility] Chief Complaint/Reason for Call: please call nori Engel to discuss mri scheduling and about turning the pacemaker off. She is waiting for a date for the mri first before contacting cardiology for the pacemaker question. Sleep study is done. Best time of day caller can be reached: AM Patient advised that office/PCP has 24-48 business hours to return their call: Yes [facility] 02-05-2023 Telephone encounter Note Spoke with patient and answered all questions. [facility] 02-05-2023 Telephone encounter Note Name of caller: Maren Contact phone number: [phone] Relationship to Patient: daughter Provider: DR bacon Practice: neuro daily Chief Complaint/Reason for Call: pts daughter is calling to help him schedule his home sleep study and mri. His pacemaker will also need turned off for the mri. Please call Maren to discuss. Best time of day caller can be reached: AM Patient advised that office/PCP has 24-48 business hours to return their call: Yes [facility] 01-09-2023 History of Presen t illness Narrative Images from the original note were not included. [facility] [address] [facility] [address] [facility] [address] Dept: [phone] Dept Loc: [phone] Pranav Bacon MD Thank you for your kind request for a neurological consultation on this patient. CHIEF COMPLAINT: Chief Complaint Patient presents with New Patient Memory Loss HISTORY OF PRESENT ILLNESS: The patient is a 77 y.o. person who presents with memory loss. 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 His family reports that he is getting progressively worse. Onset Gradual? Yes Age over 65? Yes Alzheimer's Dementia? No Short term memory loss for facts (declarative) while distant memories are spared? Yes Difficulty with word finding of familiar words? Yes Difficulty with drawing, buttoning shirts, constructing models, making a bed, and putting together something that is unassembled? No Changes in personality, behavior, or comportment? No Difficulty with executive functioning? No Making plans? Yes Keeping track of time and finishing tasks on time? Yes Meaningfully include past knowledge in discussions? No Ask for help or seek information when needed? No Telling stories with details in an organized, sequential manner? No Prior history of Parkinson's Disease (Parkinson's Disease relate Dementia)? No Associated with impairment in attention fluctuating during the day or from day to day? No Associated with impairment in tasks requiring construction (visuospatial orientation or perception)? No Associated with impairment in recall of recent events? No per patient, family says yes Associated with apathy? Yes Associated with depressive mood changes and anxiety? Yes Associated with hallucinations of people, animals or objects? No Associated with excessive daytime sleepiness? No Associated with delusions? No Associated with parkinsonism bradykinesia, tremor, rigidity, or gait changes (Lewy Body Disease)? No Cognitive impairment (similar to above)? No Hallucinations? No H/o acting out dreams? Yes but not for a long time Fluctuations in attention? No Orthostasis? Yes Age under 65? No Frontal temporal dementia? No Behavioral variant? No Associated with hallucinations? No Associated with socially inappropriate behavior, loss of manners or decorum? Yes Associated with impulsivity, rashness, or careless actions? Yes Associated with apathy, loss of initiative? Yes Associated with binge eating, binge drinking, binge smoking? Yes eating. Associated with repetitive movements or repeating the same words over and over? Repeats stories Semantic Variant? No Impaired object naming? No Impaired single-word comprehension? No Difficulty reading or writing? No No trouble repeating? Yes No trouble with speaking clearly or with proper grammar? Yes Nonfluent Agrammatic Variant? No Effortful, halting speech with inconsistent sound errors and distortion? No Impaired comprehension of syntactically complex sentences? No Spared single-word comprehension? No Spared object knowledge? No Corticobasal Degeneration? No Asymmetric limb rigidity, akinesia, dystonia, or myclonus? No Orobuccal or limb apraxia? No Cortical sensory deficit? No Alien limb phenomenon? No Progressive Supranuclear Palsy? No Falls or postural instability? Yes Urinary incontinence? No Behavioral changes? No Onset Sudden? No Associated with head trauma? No Associated with TIA or Stroke symptoms? No Associated with infection? No Associated with auto-immune disease? No Associated with drug or medication? No Associated with tumor or treatment of tumor? No Associated with diet change or gastric bypass? No Associated with depression, anxiety, psychosis, or other psychiatric disease? No Associated with seizures? No Family brought up concern about him being sleepy all of the time and spending 16 hours of the day. The patient reports excessive daytime sleepiness. The patient goes to bed around [place]. It takes more than 30 min to fall asleep. The patient gets up for the day at 7 30AM. The patient does not feel refreshed upon awakening. The patient estimations 1 arousals per sleep period. The patient reports/denies jerking of the limbs during sleep. Snoring?Yes Tired? (Tired, Fatigued, or Sleepy during the daytime) Yes Observed? (Stop Breathing or Choking/Gasping during your sleep) Yes Pressure? (High blood pressure meds?)Yes Body Mass Index is 28 or greater?Yes Age greater than 50?Yes Neck size (Men >17 in, Women >16 in)Yes Gender Male?Yes STOP BANG score 8 Takes hours of naps until noon. Past Medical History: has a past medical history of Aortic stenosis, severe, Atrial fibrillation (CMS/HCC) (), Hemothorax (2011), atrial flutter, Hyperlipidemia, Left bundle branch block, CLAIRE (obstructive sleep apnea), and Syncope. Past Surgical History: has a past surgical history that includes Loop recorder evaluation (2011); Laminectomy (12/11/2021); Nasal septum surgery; Cardiac catheterization (03/04/2022); CTA HEART CORONARY ANGIOGRAM WITH PROV FFR-CT (04/16/2022); and Cardiac catheterization (N/A, 05/13/2022). Medications: Current Outpatient Medications: aspirin 81 MG chewable tablet, Chew 1 tablet (81 mg) daily., Disp: 30 tablet, Rfl: 11 Eliquis 5 MG tablet, Take 5 mg by mouth 2 times daily., Disp: , Rfl: Ibuprofen (IBU PO), Take by mouth. otc, Disp: , Rfl: losartan (Cozaar) 50 MG tablet, Take 1 tablet (50 mg) by mouth daily., Disp: 90 tablet, Rfl: 3 metoprolol tartrate (Lopressor) 50 MG tablet, Take 50 mg by mouth in the morning and 50 mg before bedtime., Disp: , Rfl: rosuvastatin (Crestor) 20 MG tablet, Take 1 tablet (20 mg) by mouth Nightly., Disp: 30 tablet, Rfl: 2 venlafaxine (Effexor) 75 MG tablet, Take 75 mg by mouth in the morning and 75 mg before bedtime., Disp: , Rfl: amoxicillin (Amoxil) 500 MG capsule, Take 4 caps (2000 mg) 1 hour prior to procedure. (Patient not taking: Reported on 01/09/2023), Disp: 4 capsule, Rfl: 5 metFORMIN (Glucophage) 500 MG tablet, Take by mouth. Tablet for 7 days then increase to 2 tabs daily, Disp: , Rfl: Allergies: Patient has no known allergies. Social History: Social History Socioeconomic History Marital status: Spouse name: Not on file Number of children: Not on file Years of education: Not on file Highest education level: Not on file Occupational History Not on file Tobacco Use Smoking status: Never Smokeless tobacco: Never Substance and Sexual Activity Alcohol use: Not Currently Drug use: Never Sexual activity: Not on file Other Topics Concern Not on file Social History Narrative Not on file Social Determinants of Health Financial Resource Strain: Not on file Food Insecurity: Not on file Transportation Needs: Not on file Physical Activity: Not on file Stress: Not on file Social Connections: Not on file Intimate Partner Violence: Not on file Housing Stability: Not on file Family History: Family History Problem Relation Name Age of Onset No Known Problems Mother No Known Problems Father REVIEW OF SYSTEMS: Review of Systems Constitutional: Negative for appetite change, chills, diaphoresis, fever and unexpected weight change. HENT: Negative for dental problem and mouth sores. Eyes: Negative for discharge and itching. Respiratory: Negative for chest tightness. Cardiovascular: Negative for chest pain and leg swelling. Gastrointestinal: Negative for rectal pain and vomiting. Endocrine: Negative for polydipsia, polyphagia and polyuria. Genitourinary: Negative for decreased urine volume, flank pain and genital sores. Musculoskeletal: Negative for arthralgias. Skin: Negative for color change. Allergic/Immunologic: Negative for food allergies and immunocompromised state. Neurological: Hypersomnia, Memory Loss Hematological: Negative for adenopathy. Does not bruise/bleed easily. Psychiatric/Behavioral: Negative for agitation, behavioral problems, decreased concentration, sleep disturbance and suicidal ideas. PHYSICAL EXAM: Vitals: BP (!) 150/76 (BP Location: Left arm) Pulse 69 Wt 249 lb (113 kg) BMI 34.73 kg/m General Appearance: Patient is in no apparent distress. Head is normocephalic, atraumatic Cardiovascular: Regular rate and rhythm. No heart murmurs. No carotid bruit Neurologic: MOCA-b (2013) Mentation: Alert and oriented x 3 to person, place and time. Speech and Language: Speech and language normal Concentration and Attention: Concentration normal Memory: Memory 5/5 immediate, 2/5 delayed Fund of Knowledge: Fund of knowledge normal Cranial Nerves: II, III, IV, V, , VII, VIII, IX, X, XI, XII tested and were intact including fundoscopic exam (optic discs) and visual field to confrontation. Motor: Strength: Strength 5 out of 5 with normal tone Alternating Movements: Normal Cogwheel Rigidity: None Tone: Tone is normal Tremor / Involuntary Movements: None Deep Tendon Reflexes: 1 out of 4 symmetrical in all four limbs. Coordination: Normal coordination upper and lower extremities Gait and Station: Gait and Station is normal DATA No results found for: PHENYTOIN, PHENOBARB, VALPROATE, CBMZ Lab Results Component Value Date WBC 5.7 07/25/2022 HGB 14.6 07/25/2022 HCT 42.5 07/25/2022 PLT 180 07/25/2022 ALT 24 04/16/2022 AST 37 04/16/2022 NA 136 07/25/2022 K 4.1 07/25/2022 CL 101 07/25/2022 CREATININE 0.90 07/25/2022 BUN 15 07/25/2022 CO2 28 07/25/2022 INR 1.1 05/13/2022 @LASTAPPOINTMENTTHISPROV@ Transthoracic echocardiogram (TTE) complete with contrast, bubble, strain, and 3D PRN Left Ventricle: Left ventricle size is normal. Increased wall thickness. Moderate septal thickening. Normal left ventricular systolic function. EF by 2D Simpsons Biplane is 54%. Normal wall motion. Right Ventricle: Right ventricle is mildly dilated. Normal systolic function. Aortic Valve: Baron Jammie 3 [id number] transcatheter bioprosthetic aortic valve with a size of 26 mm. AV mean gradient is 16 mmHg. AV mean gradient is 16 mmHg. AV peak gradient is 30 mmHg. Prior TAVR Pk/Mn gradients 48/31 mmHg (07/25/22). This finding supports the diagnosis of high flow state as the cause of prior elevated gradients Tricuspid Valve: Mildly elevated RVSP. RVSP is 34 mmHg. Technically difficult study. No results found for: LEVETIRACETA, FERRITIN, CRP, JOSE, ANCANo components found for: TOPIRA No results found for: BRIJESH, IMMUNOGLOBUL, OLIGOBANDS No results found for: BRIJESH, SEDRATE, CRP, JOSE, ANCA, HOMOCYSTEINE, [id number], GLUCCSF No results found for: SGY74OH, HEPCAB ASSESSMENT AND PLAN Problem List Items Addressed This Visit None Visit Diagnoses Confusion and disorientation - Primary Relevant Orders MR brain wo contrast RPR TSH Vitamin B1 Vitamin B12 Vitamin B6 Mild cognitive impairment with memory loss Relevant Orders MR brain wo contrast RPR TSH Vitamin B1 Vitamin B12 Vitamin B6 Obstructive sleep apnea Relevant Orders Home sleep test He had trouble with memory and cognition. His MOCA score is not bad, but his clinical history is worse than his score. It is medically necesssary for him to have MRI brain for small vessel disease causing this problem. He has a history of severe CLAIRE. This is contributing to his memory loss. He is having severe hypersomnia as well. Home sleep test to see if he is a candidate for the Inspire device. I spent 45 minutes caring for this patient today, reviewing labs and records, seeing the patient, documenting in the record and arranging for studies. documented in this encounter [facility] 01-09-2023 Miscellaneous Notes Addended by: PRANAV BACON on: 01/21/2023 07:48 AM Modules accepted: Orders documented in this encounter [facility] 01-09-2023 Note Addended by: PRANAV BACON on: 01/21/2023 07:48 AM Modules accepted: Orders [facility] 11-07-2022 Evaluation + Plan note Associated Problem(s): LBBB (left bundle branch block) S/p PPM, followed by Dr. Kumari [facility] 11-07-2022 Miscellaneous Notes Associated Problem(s): LBBB (left bundle branch block) S/p PPM, followed by Dr. Kumari Associated Problem(s): Essential hypertension Add Losartan, check BMP one week. He can follow up with PCP for BP (has appt today). Associated Problem(s): Presence of permanent cardiac pacemaker Followed by Dr. Kumari. Associated Problem(s): Aortic stenosis, severe S/p TAVR. Echo today shows normal EF, normal biopros valve function. Mean gradient is 16 mm Hg. Continue ASA. Return to work documented in this encounter [facility] 11-07-2022 Evaluation + Plan note Associated Problem(s): Essential hypertension Add Losartan, check BMP one week. He can follow up with PCP for BP (has appt today). [facility] 11-07-2022 Evaluation + Plan note Associated Problem(s): Presence of permanent cardiac pacemaker Followed by Dr. Kumari. [facility] 11-07-2022 Evaluation + Plan note Associated Problem(s): Aortic stenosis, severe S/p TAVR. Echo today shows normal EF, normal biopros valve function. Mean gradient is 16 mm Hg. Continue ASA. Return to work [facility] 11-07-2022 History of Presen t illness Narrative Images from the original note were not included. [facility] [address] [facility] [address] Dept: [phone] Dept Loc: [phone] Visit type: Established : 1945 Reason for Visit: Follow-up (Aortic stenosis) Assessment and Plan 1. Essential hypertension Assessment & Plan: Add Losartan, check BMP one week. He can follow up with PCP for BP (has appt today). Orders: - Basic metabolic panel 2. Aortic stenosis, severe Assessment & Plan: S/p TAVR. Echo today shows normal EF, normal biopros valve function. Mean gradient is 16 mm Hg. Continue ASA. Return to work Orders: - ECG 12 lead - CLINIC PERFORMED 3. LBBB (left bundle branch block) Assessment & Plan: S/p PPM, followed by Dr. Kumari Follow up for 6 months-05/2023. Subjective Ravin Jones is a 76 y.o. male known to Dr. Kumari with aortic stenosis (peak/mean 62/39, ejection fraction 60% aortic valve area 1.0) hypertension, hyperlipidemia, history of atrial flutter, pre existing first degree AV block and LBBB, nonobstructive CAD. He underwent femoral TAVR on 05/13/2022 and was discharged on 05/14/2022 without complication. He subsequently had a pacemaker implanted at [facility]. His one month echo showed normal EF with no paravalvular regurgitation, elevated prosthetic gradients of unclear significance, accel time 98 ms AV mean gradient is 31 mmHg. AV peak gradient is 48 mmHg. He is here today for follow up. He reports mild dyspnea with exertion, NYHA Class 2. He denies any chest pain, palpitations, syncope, bleeding. He reports fatigue but notes this is because he has been very sedentary. He tried cardiac rehab but quit after 6 sessions. Review of Systems Constitutional: Positive for fatigue. Negative for activity change, chills, diaphoresis and fever. HENT: Negative for nosebleeds and trouble swallowing. Eyes: Negative for discharge and visual disturbance. Respiratory: Positive for shortness of breath. Negative for apnea, cough, chest tightness and wheezing. Cardiovascular: Negative for chest pain, palpitations and leg swelling. Gastrointestinal: Negative for abdominal distention, abdominal pain, blood in stool, diarrhea, nausea and vomiting. Endocrine: Negative for cold intolerance and heat intolerance. Genitourinary: Negative for hematuria. Musculoskeletal: Negative for gait problem and myalgias. Skin: Negative for color change and rash. Neurological: Negative for dizziness, seizures, syncope, facial asymmetry, speech difficulty, weakness, light-headedness, numbness and headaches. Hematological: Does not bruise/bleed easily. Psychiatric/Behavioral: Negative for dysphoric mood. No Known Allergies Outpatient Medications Prior to Visit Medication Sig Dispense Refill amoxicillin (Amoxil) 500 MG capsule Take 4 caps (2000 mg) 1 hour prior to procedure. 4 capsule 5 aspirin 81 MG chewable tablet Chew 1 tablet (81 mg) daily. 30 tablet 11 metFORMIN (Glucophage) 500 MG tablet Take by mouth. Tablet for 7 days then increase to 2 tabs daily metoprolol tartrate (Lopressor) 50 MG tablet Take 50 mg by mouth in the morning and 50 mg before bedtime. rosuvastatin (Crestor) 20 MG tablet Take 1 tablet (20 mg) by mouth Nightly. 30 tablet 2 venlafaxine (Effexor) 75 MG tablet Take 75 mg by mouth in the morning and 75 mg before bedtime. No facility-administered medications prior to visit. Past Medical History: Diagnosis Date Aortic stenosis, severe Atrial fibrillation (CMS/HCC) (HCC) paroxysmal Hemothorax 2011 Hx of atrial flutter Hyperlipidemia Left bundle branch block CLAIRE (obstructive sleep apnea) Syncope Social History Tobacco Use Smoking status: Never Smokeless tobacco: Never Substance Use Topics Alcohol use: Not Currently Past Surgical History: Procedure Laterality Date CARDIAC CATHETERIZATION 03/04/2022 mid LAD 50% CARDIAC CATHETERIZATION N/A 05/13/2022 Performed by Rocco Garcia MD at [facility] OR CT CORONARY CTA WITH PROV FFR-CT 04/16/2022 CT ANGIOGRAM TAVR 04/16/2022 [facility] [address] IMAGING CVHX LOOP RECORDER EVALUATION 2012 LAMINECTOMY 12/11/2021 NASAL SEPTUM SURGERY Family History Problem Relation Name Age of Onset No Known Problems Mother No Known Problems Father Objective Vitals: 11/07/22 1014 BP: (!) 148/88 BP Location: Left arm Patient Position: Sitting BP Cuff Size: Large adult Pulse: 68 SpO2: 96% Weight: 253 lb 6.4 oz (115 kg) Height: 5' 11 (1.803 m) Physical Exam Constitutional: Appearance: Normal appearance. HENT: Head: Normocephalic and atraumatic. Nose: Nose normal. Eyes: Conjunctiva/sclera: Conjunctivae normal. Pupils: Pupils are equal, round, and reactive to light. Cardiovascular: Rate and Rhythm: Normal rate and regular rhythm. Pulmonary: Effort: Pulmonary effort is normal. Breath sounds: Normal breath sounds. Abdominal: General: Bowel sounds are normal. Palpations: Abdomen is soft. Musculoskeletal: General: Normal range of motion. Cervical back: Normal range of motion and neck supple. Skin: General: Skin is warm and dry. Neurological: General: No focal deficit present. Mental Status: He is alert and oriented to person, place, and time. Psychiatric: Mood and Affect: Mood normal. Thought Content: Thought content normal. Data Reviewed and Summarized EF BP Date Value Ref Range Status 11/07/2022 54 (A) 55 - 100 % Final Review of tests/labs done/ordered within my specialty: EKG in office: Review of tests/labs done/ordered outside my specialty: Independent interpretation of tests: MAXINE Manriquez CNP documented in this encounter [facility] 11-01-2022 Telephone encounter Note 1st attempted to get patient scheduled for a new patient appointment. Left message on voicemail to give the office a call back. [facility] 11-01-2022 Miscellaneous Notes 1st attempted to get patient scheduled for a new patient appointment. Left message on voicemail to give the office a call back. documented in this encounter [facility] 10-04-2022 Note Spoke with pt and in structed to continue 81 mg aspirin uninterrupted for dental procedures. Ordered amoxicillin and instructed pt on use. Pt verbalized understanding. Clearance form faxed to [facility] at [phone] [facility] 10-04-2022 Note Pt called in explain ing he is having a dental procedure of a tooth extraction on Friday10/07/22. Pt s/p TAVR 05/13/[address] Garcia. Pt having procedure at [facility]. Medical Clearance fax received and given to Marco Garcia CNP to review. Will call pt back once form completed. [facility] 09-06-2022 Telephone encounter Note LM with appointment details for patient. Advised to call if that does not work for him. [facility] 09-06-2022 Miscellaneous Notes LM with appointment details for patient. Advised to call if that does not work for him. Echo reviewed with Dr. Garcia. Recommends we follow clinically. Pls arrange repeat echo in 3 months and follow up with me. Pls also let patient know Dr. Garcia also recommends cardiac rehab. Thx mm documented in this encounter [facility] 08-05-2022 Telephone encounter Note Echo reviewed with Dr. Garcia. Recommends we follow clinically. Pls arrange repeat echo in 3 months and follow up with me. Pls also let patient know Dr. Garcia also recommends cardiac rehab. Thx mm [facility] 05-25-2021 Hospital Discharg e instructions Patient Education 05/25/2021 12:46:25 COVID-19 Prevent the Spread of COVID-19 If You Are Sick (10/19/2019) (Custom) Prevent the Spread of COVID-19 If You Are Sick Accessible version: https://www.cdc.gov/coronavirus/2 019-ncov/ws-rjs-tqr-sick/steps-wh en-sick.html If you are sick with COVID-19 or think you might have COVID-19, follow the steps below to help protect other people in your home and community. Stay home except to get medical care. Stay home. Most people with COVID-19 have mild illness and are able to recover at home without medical care. Do not leave your home, except to get medical care. Do not visit public areas. Take care of yourself. Get rest and stay hydrated. Get medical care when needed. Call your doctor before you go to their office for care. But, if you have trouble breathing or other concerning symptoms, call 911 for immediate help. Avoid public transportation, ride-sharing, or taxis. Separate yourself from other people and pets in your home. As much as possible, stay in a specific room and away from other people and pets in your home. Also, you should use a separate bathroom, if available. If you need to be around other people or animals in or outside of the home, wear a cloth face covering. See COVID-19 and Animals if you have questions about pets: https://www.cdc.gov/coronavirus/2 019ncov/faq.html#MZJJH87uxxzidt Monitor your symptoms. Common symptoms of COVID-19 include fever and cough. Trouble breathing is a more serious symptom that means you should get medical attention. Follow care instructions from your healthcare provider and local health department. Your local health authorities will give instructions on checking your symptoms and reporting information. If you develop emergency warning signs for COVID-19 get medical attention immediately. Emergency warning signs include*: Trouble breathing Persistent pain or pressure in the chest New confusion or not able to be woken Bluish lips or face *This list is not all inclusive. Please consult your medical provider for any other symptoms that are severe or concerning to you. Call 911 if you have a medical emergency. If you have a medical emergency and need to call 911, notify the abrasive coating machine operator that you have or think you might have, COVID-19. If possible, put on a facemask before medical help arrives Call ahead before visiting your doctor. Call ahead. Many medical visits for routine care are being postponed or done by phone or telemedicine. If you have a medical appointment that cannot be postponed, call your doctor s office. This will help the office protect themselves and other patients. If you are sick, wear a cloth covering over your nose and mouth. You should wear a cloth face covering over your nose and mouth if you must be around other people or animals, including pets (even at home). You don t need to wear the cloth face covering if you are alone. If you can t put on a cloth face covering (because of trouble breathing for example), cover your coughs and sneezes in some other way. Try to stay at least 6 feet away from other people. This will help protect the people around you. Note: During the COVID-19 pandemic, medical grade facemasks are reserved for healthcare workers and some first responders. You may need to make a cloth face covering using a scarf or bandana. Cover your coughs and sneezes. Cover your mouth and nose with a tissue when you cough or sneeze. Throw used tissues in a lined trash can. Immediately wash your hands with soap and water for at least 20 seconds. If soap and water are not available, clean your hands with an alcohol-based hand search manager that contains at least 60% alcohol. Clean your hands often. Wash your hands often with soap and water for at least 20 seconds. This is especially important after blowing your nose, coughing, or sneezing; going to the bathroom; and before eating or preparing food. Use hand search manager if soap and water are not available. Use an alcohol-based hand search manager with at least 60% alcohol, covering all surfaces of your hands and rubbing them together until they feel dry. Soap and water are the best option, especially if your hands are visibly dirty. \ Avoid touching your eyes, nose, and mouth with unwashed hands. Avoid sharing personal household items. Do not share dishes, drinking glasses, cups, eating utensils, towels, or bedding with other people in your home. Wash these items thoroughly after using them with soap and water or put them in the fleet manager. Clean all high-touch surfaces everyday. Clean and disinfect high-touch surfaces in your sick room and bathroom. Let someone else clean and disinfect surfaces in common areas, but not your bedroom and bathroom. If a caregiver or other person needs to clean and disinfect a sick person s bedroom or bathroom, they should do so on an as-needed basis. The caregiver/other person should wear a mask and wait as long as possible after the sick person has used the bathroom High-touch surfaces include phones, remote controls, counters, tabletops, doorknobs, bathroom fixtures, toilets, keyboards, tablets, and bedside tables. Clean and disinfect areas that may have blood, stool, or body fluids on them. Use household ruby engineer and disinfectants. Clean the area or item with soap and water or another detergent if it is dirty. Then use a household disinfectant. Be sure to follow the instructions on the label to ensure safe and effective use of the product. Many products recommend keeping the surface wet for several minutes to ensure germs are killed. Many also recommend precautions such as wearing gloves and making sure you have good ventilation during use of the product. Most EPA-registered household disinfectants should be effective. How to discontinue home isolation. People with COVID-19 who have stayed home (home isolated) can stop home isolation under the following conditions: If you will not have a test to determine if you are still contagious, you can leave home after these three things have happened: You have had no fever for at least 72 hours (that is three full days of no fever without the use of medicine that reduces fevers) AND other symptoms have improved (for example, when your cough or shortness of breath has improved) AND at least 10 days have passed since your symptoms first appeared. If you will be tested to determine if you are still contagious, you can leave home after these three things have happened: You no longer have a fever (without the use of medicine that reduces fevers) AND other symptoms have improved (for example, when your cough or shortness of breath has improved) AND you received two negative tests in a row, 24 hours apart. Your doctor will follow CDC guidelines. In all cases, follow the guidance of your healthcare provider and local health department. The decision to stop home isolation should be made in consultation with your healthcare provider and state and local health departments. Local decisions depend on local circumstances. cdc.gov/coronavirus 05/25/2021 12:46:25 URI, Viral, No Abx (Adult) Viral Upper Respiratory Illness (Adult) You have a viral upper respiratory illness (URI), which is another term for the common cold. This illness is contagious during the first few days. It is spread through the air by coughing and sneezing. It may also be spread by direct contact (touching the sick person and then touching your own eyes, nose, or mouth). Frequent handwashing will decrease risk of spread. Most viral illnesses go away within 7 to 10 days with rest and simple home remedies. Sometimes the illness may last for several weeks. Antibiotics will not kill a virus, and they are generally not prescribed for this condition. Home care If symptoms are severe, rest at home for the first 2 to 3 days. When you resume activity, don't let yourself get too tired. Don't smoke. If you need help stopping, talk with your healthcare provider. Avoid being exposed to cigarette smoke (yours or others ). You may use acetaminophen or ibuprofen to control pain and fever, unless another medicine was prescribed. If you have chronic liver or kidney disease, have ever had a stomach ulcer or gastrointestinal bleeding, or are taking blood-thinning medicines, talk with your healthcare provider before using these medicines. Aspirin should never be given to anyone under 18 years of age who is ill with a viral infection or fever. It may cause severe liver or brain damage. Your appetite may be poor, so a light diet is fine. Stay well hydrated by drinking 6 to 8 glasses of fluids per day (water, soft drinks, juices, tea, or soup). Extra fluids will help loosen secretions in the nose and lungs. Txyb-ccg-sxgyvma cold medicines will not shorten the length of time you re sick, but they may be helpful for the following symptoms: cough, sore throat, and nasal and sinus congestion. If you take prescription medicines, ask your healthcare provider or pharmacist which aqkf-mpe-dkpxglw medicines are safe to use. (Note: Don't use decongestants if you have high blood pressure.) Follow-up care Follow up with your healthcare provider, or as advised. When to seek medical advice Call your healthcare provider right away if any of these occur: Cough with lots of colored sputum (mucus) Severe headache; face, neck, or ear pain Difficulty swallowing due to throat pain Fever of 100.4 F (38 C) or higher, or as directed by your healthcare provider Call 911 Call 911 if any of these occur: Chest pain, shortness of breath, wheezing, or difficulty breathing Coughing up blood Very severe pain with swallowing, especially if it goes along with a muffled voice [phone] [employer]. [address] [place] [address], [place] [address]. All rights reserved. This information is not intended as a substitute for professional medical care. Always follow your healthcare professional's instructions. Follow Up Care 05/25/2021 12:30:01 With:Follow up with primary care provider Address:Unknown When:2-4 days Comments:Take Tylenol for fever, you may use medicine such as Sudafed for congestion, quarantine until results are available. Return if any worsening severe symptoms such as severe shortness of breath chest pain or other concerning symptoms. [facility] Evaluation + Plan note No data available for this section [facility] Diagnosis Essential hypertension- Primary Unspecified essential hypertension Aortic stenosis, severe LBBB (left bundle branch block) Other left bundle branch block [facility] S/P TAVR (transcatheter aortic valve replacement) Shortness of breath [facility] Diagnosis Confusion and disorientation- Primary Mild cognitive impairment with memory loss Mild cognitive impairment, so stated Obstructive sleep apnea Obstructive sleep apnea (adult) (pediatric) [facility] Diagnosis Confusion and disorientation- Primary [facility] Diagnosis Mild cognitive impairment with memory loss Mild cognitive impairment, so stated Confusion and disorientation [facility] Diagnosis Mild cognitive impairment with memory loss- Primary Mild cognitive impairment, so stated Obstructive sleep apnea Obstructive sleep apnea (adult) (pediatric) [facility] Diagnosis Mild cognitive impairment with memory loss Mild cognitive impairment, so stated [facility] Diagnosis Obstructive sleep apnea (adult) (pediatric)- Primary [facility] Consultation (Routine) - Pending Review Specialty Diagnoses / Procedures Referred By Herminia edward Referred To Contact Otolaryngology Diagnoses Obstructive sleep apnea Procedures [place] OFFICE/OUTPATIENT [facility] 60-74 MINUTES Pranav Bacon MD [address] [address] Donnell Seals DO [address] [place] [address] Referral ID Status Reason Start Date Expiration Date Visits Requested Visits Authorized [id number] Pending Review Specialty Services Required 03/26/2024 1 1 [facility] Summary Purpose Family History No Family History Records FoundNo Family History Records Found Advance Directives No Advanced Directives Records FoundLatest Code Status on File Code Status Date Activated Date Inactivated Comments Full Code 05/13/2022 9:17 AM 05/14/2022 4:40 PM Latest Code Status on File Code Status Date Activated Date Inactivated Comments Full Code 05/13/2022 9:17 AM 05/14/2022 4:40 PM Reason for Referral Specialty Diagnoses / Procedures Referred By Contac t Referred To Contact Radiology Diagnoses Mild cognitive impairment with memory loss Confusion and disorientation Procedures MR brain wo contrast Pranav Bacon MD [address] [place] [address] Referral ID Status Reason Start Date Expiration Date V isits Requested Visits Authorized [id number] Pending Review 01/09/2023 07/08/2023 1 1 Specialty Diagnoses / Procedures Referred By Contac t Referred To Contact Sleep Medicine Diagnoses Obstructive sleep apnea Procedures Home sleep test Pranav Bacon MD [address] [address] Referral ID Status Reason Start Date Expiration Date V isits Requested Visits Authorized [id number] Pending Review 01/09/2023 07/08/2023 1 1 Specialty Diagnoses / Procedures Referred By Contac t Referred To Contact Cardiology Diagnoses S/P TAVR (transcatheter aortic valve replacement) Shortness of breath Procedures Transthoracic echocardiogram (TTE) complete with contrast, bubble, strain, and 3D PRN [place] ECHO TTHRC R-T 2D W/WOM-MODE COMPL SPEC&COLR D [place] TTE W OR WO FOL WCON,DOPPLER Graciela Saini, QUALITY RN - INFORMATION STRATEGIST [address] [facility] [address] [place] [address] Referral ID Status Reason Start Date Expiration Date Visits Requested Visits Authorized [id number] Pending Review Perform Procedure 08/05/2022 02/01/2023 1 1 Additional Source Comments (unrecognized sect ion and content) No Status Records FoundNo Status Records Found INFORMATION SOURCE (unrecogn ized section and content) DATE CREATED AUTHOR AUTHOR'S ORGANIZ ATION 06/26/2023 [facility] [place] [facility] Care Teams (unrecognized sec tion and content) Procurement Manager Relationship Specialty Start Date End Date Samina Au MD [address] [facility] [address] [place] [address] PCP - General Family Medicine 04/16/22 Procurement Manager Relationship Specialty Start Date End Date Samina Au MD [address] [facility] [address] [place] [address] PCP - General Family Medicine 04/16/22 Procurement Manager Relationship Specialty Start Date End Date Samina Au MD [address] [facility] [address] [place] [address] PCP - General Family Medicine 04/16/22 Procurement Manager Relationship Specialty Start Date End Date Samina Au MD [address] [facility] [address] [place] [address] PCP - General Family Medicine 04/16/22 Procurement Manager Relationship Specialty Start Date End Date Samina Au MD [address] [facility] [address] [place] [address] PCP - General Family Medicine 04/16/22 Procurement Manager Relationship Specialty Start Date End Date Samina Au MD [address] [place] [address] PCP - General Family Medicine 04/16/22 Procurement Manager Relationship Specialty Start Date End Date Samina Au MD [address] [place] [address] PCP - General Family Medicine 04/16/22 Procurement Manager Relationship Specialty Start Date End Date Samina Au MD [address] [place] [address] PCP - General Family Medicine 04/16/22 Procurement Manager Relationship Specialty Start Date End Date Samina Au MD [address] [place] [address] PCP - General Family Medicine 04/16/22 Procurement Manager Relationship Specialty Start Date End Date Samina Au MD [address] [place] [address] PCP - General Family Medicine 04/16/22 Procurement Manager Relationship Specialty Start Date End Date Samina Au MD [address] [place] [address] PCP - General Family Medicine 04/16/22 Procurement Manager Relationship Specialty Start Date End Date Samina Au MD [address] [place] [address] PCP - General Family Medicine 04/16/22 Reason for Visit (unrecogniz ed section and content) Specialty Diagnoses / Procedures Referred By Contac t Referred To Contact Cardiology Diagnoses S/P TAVR (transcatheter aortic valve replacement) Shortness of breath Procedures Transthoracic echocardiogram (TTE) complete with contrast, bubble, strain, and 3D PRN [place] ECHO TTHRC R-T 2D W/WOM-MODE COMPL SPEC&COLR D [place] TTE W OR WO FOL WCON,DOPPLER Graciela Saini, QUALITY RN - INFORMATION STRATEGIST [address] [place] [address] [address] [facility] [address] [place] [address] Referral ID Status Reason Start Date Expiration Date V isits Requested Visits Authorized [id number] Closed Perform Procedure 08/05/2022 02/01/2023 1 1 Reason Comments New Patient Memory Loss Specialty Diagnoses / Procedures Referred By Contac t Referred To Contact Neurology Diagnoses Other amnesia Procedures [place] OFFICE/OUTPATIENT NEW MODERATE MDM 45-59 MINUTES Samina Au MD [address] [facility] [address] [place] [address] Pranav Bacon MD [address] [facility] [address] [place] [address] Referral ID Status Reason Start Date Expiration Date V isits Requested Visits Authorized [id number] Pending Review 10/31/2022 10/31/2023 1 1 Reason Onset Date Comments Orders 02/05/2023 Reason Onset Date Comments Medication Question 03/12/2023 Anxiety Medi cation for MRI Specialty Diagnoses / Procedures Referred By Contac t Referred To Contact Radiology Diagnoses Mild cognitive impairment with memory loss Confusion and disorientation Procedures MR brain wo contrast Pranav Bacon MD [address] [facility] [address] [place] [address] Referral ID Status Reason Start Date Expiration Date Visits Re quested Visits Authorized [id number] Closed 01/09/2023 07/08/2023 1 1 Reason Comments Follow-up Memory Loss Reason Comments Med Refill Reason Onset Date Comments Medication Problem 06/23/2023 FOR RECORDS PERTAINING TO PATIENTS WHO ARE OR HAVE BEEN ENROLLED IN A CHEMICAL DEPENDENCY/SUBSTANCEABUSE PROGRAM, SOME INFORMATION MAY BE OMITTED. This clinical summary was aggregated from multiple sources. Caution should be exercised in using it in the provision of clinical care. This summary normalizes information from multiple sources, and as a consequence, information in this document may materially change the coding, format and clinical context of patient data. In addition, data may be omitted in some cases. CLINICAL DECISIONS SHOULD BE BASED ON THE PRIMARY CLINICAL RECORDS. [facility] [facility]. provides no warranty or guarantee of the accuracy or completeness of information in this document.
[2023-06-30] MEDS: Lactated Ringers 1,000 ML 15 ML IV (06:43)
--- NOTE | 2023-06-30 06:53 | PCM.HP.BLA ---
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 Is patient in pain?: No Allergies No Known Allergies Allergy (Verified 04/28/23 13:40) Medications venlafaxine 75 mg tablet 75 mg PO BID mood 11/30/15 [History Confirmed 04/28/23] albuterol sulfate 90 mcg/actuation aerosol inhaler 1 - 2 puff inhalation Q6H PRN PRN Wheezing 01/13/19 [History Confirmed 04/28/23] ibuprofen 200 mg capsule 200 mg PO Q6H PRN Pain 11/26/21 [History Confirmed 04/28/23] metoprolol tartrate 50 mg tablet 50 mg PO BID #180 tabs 05/01/22 [Rx Confirmed 04/28/23] amoxicillin 500 mg tablet 2,000 mg PO ONCE PRN SBE prophylaxis 06/06/22 [History Confirmed 04/28/23] omeprazole 20 mg capsule,delayed release 20 mg PO DAILY PRN 06/28/22 [History Confirmed 04/28/23] apixaban 5 mg tablet (Eliquis) 5 mg PO BID #60 tabs 12/26/22 [Rx Confirmed 04/28/23] rosuvastatin 20 mg tablet 10 mg PO DAILY 12/26/22 [History Confirmed 04/28/23] losartan 50 mg tablet 50 mg PO DAILY 12/27/22 [History Confirmed 04/28/23] diazepam 10 mg tablet mg PO 04/28/23 [History Confirmed 04/28/23] donepezil 5 mg tablet mg PO 04/28/23 [History Confirmed 04/28/23] PFS Medical History Atrial fibrillation and flutter Bradycardia COVID-19 (05/30/21) BARRIOS (dyspnea on exertion) Hemothorax (08/2011) Hyperlipidemia Left bundle branch block Non-rheumatic aortic stenosis Nonobstructive atherosclerosis of coronary artery Nonrheumatic mitral (valve) stenosis Obstructive sleep apnea Paroxysmal atrial fibrillation (2011) Paroxysmal atrial flutter (2011) Presence of permanent cardiac pacemaker Second degree AV block, Mobitz type I Syncope Surgical History excision lung nodule H/O hemorrhoidectomy H/O laminectomy (12/11/21) History of electrophysiologic study (08/21/11) History of left heart catheterization (03/04/22) History of loop recorder (08/21/11) History of nasal septoplasty History of transcatheter aortic valve replacement (TAVR) (05/13/22) Family History Father CAD (coronary artery disease) Social History Smoking Status: Never smoker alcohol intake: current alcohol intake frequency: holidays/special occasions only substance use type: does not use caffeine: Yes Type: carbonated beverages Number of servings: 1 and tea Number of servings: 1 HPI HPI HPI: Patient is a 77-year-old male here with some abdominal pain and he also reports he needs a screening colonoscopy. His last colonoscopy was 20 years ago and he denies any blood in the stool. He reports he occasionally gets abdominal pain. His daughter reports that he takes ibuprofen daily multiple times a day and she is worried about how much ibuprofen he is taking. ROS General General: Yes weight change and fatigue; No appetite, colon cancer, breast cancer or weakness HEENT HEENT: No difficulty swallowing, eye injury, eye surgery, swollen glands or hoarseness Endo Endocrine: No thyroid disease, diabetes mellitus, thyroid cancer, Hair loss, heat intolerance or cold intolerance Skin Skin: No rash or changing moles Breast Breast: No left breast lump, right breast lump, nipple discharge, breast pain, abnormal mammogram, abnormal US or breast enlargement Musc Musculoskeletal: Yes back problems and arthritis; No rheumatoid arthritis, gout or joint pain Cardio Cardiovascular: Yes heart disease; No murmur, pacemaker, atrial fibrillation, high blood pressure, heart attack, heart stent, palpitations, shortness of breat with exertion or chest pain Psych Psychiatric: Yes depression; No anxiety or hearing voices Resp Respiratory: Yes shortness of breath, Yes sleep apnea, No cough, No COPD, Yes asthma, No emphysema and No wheezing Gastro Gastrointestinal: Yes abdominal pain, No nausea or vomiting, No diarrhea, Yes constipation, No blood in stool, Yes acid reflux, No hemorrhoids, No ulcers, No gallbladder problem and No black,tarry stools Wilber Hematologic: No blood thinners, No blood disorders, No bleeding, No anemia and No blood clots Neuro Neurologic: No system reviewed and no additional complaints, except as documented, No as per HPI, No abnormal gait, No abnormal hearing, No abnormal movements, No abnormal speech, No behavioral changes, No burning sensations, No confusion, No convulsions, No disequilibrium, No dizziness, No localized weakness, No frequent falls, No headache(s), No lack of coordination, No loss of vision, No memory loss, Yes numbness, No other visual disturbances, No radicular pain, No restless legs, No sensory deficit, No syncope, Yes tingling, No tremor(s), No weakness and No other Exam Const General: cooperative Orientation: alert and oriented x3 HENMT Head: normal to inspection Neck Neck: normal visual inspection and full ROM Chest Chest palpation & inspection: normal inspection of the chest Resp Effort & Inspection: normal respiratory effort Auscultation: clear to auscultation bilaterally Cardio Rate: regular rate Rhythm: regular rhythm GI Inspection: non-distended Palpation: soft and nontender Skin General: no rashes or lesions noted Neuro General: patient alert and patient oriented x3 Extrem General: full ROM Psych Appearance: grossly normal Mental Status: mental status grossly normal Assessment and Plan Assessment and Plan (1) Epigastric pain: Status: Acute (2) Screen for colon cancer: Status: Acute Orders: Orders Colonoscopy Today EGD Today Plan The patient is here for screening colonoscopy. His last colonoscopy was 20 years ago. He notes that he occasionally has pain in his abdomen and his daughter notes that he takes a lot of ibuprofen. I would like to perform an EGD at the same time to check his stomach for peptic ulcer disease. I explained endoscopy in detail to the patient. I explained the risks including but not limited to stroke or heart attack with anesthesia, perforation of the GI tract, bleeding, infection. I explained that any of these could necessitate further emergency surgery. The patient understands and all questions were answered sufficiently. The patient wishes to proceed with procedure. Luis Madrigal MD Pager: [facility] [address] [place] [address], [address] [place] [address] Office: I have examined the patient and the H&P has been reviewed. There are no clinical changes since date of exam.
--- NOTE | 2023-06-30 07:30 | IMM_PTH ---
PATHOLOGY RESULTS PATIENT: RAVIN JONES LOC: EN U#:[id number] AGE/SX: 77/M ROOM: RE06/30/[address]: Dr. Luis Madrigal MD : 1945 BED: DIS: 06/30/2023 SPEC #: [id number] RECD: 06/30/23 13:41 STATUS: DAMON REWilton #: [id number] CRUZ: 06/30/23 07:[address]: Luis Madrigal DEPT: IMMUNOHISTOCHEMISTRY RECD BY: Susan Nicholson ENTERED: 06/30/23 13:41 SP TYPE: IMMUNO OTHR DR: Dr. Anthony Reyes MD Tissues: Stomach, NOS Procedures: H Pylori (initial) PHYSICIAN & INSTITUTION [place] [address] SPECIMEN INFORMATION: Tissue Source: A - Gastric ulcer Clinical Info: Epigastric pain, screening Specimen Number: [id number] CPT code: 77717 METHODOLOGY: Deparaffinized sections of prefer/formalin-fixed tissue or PAP/DQ stained slides are incubated with monoclonal/polyclonal antibodies/oligonucleotide probes. Localization is made via biotin free immunoperoxidase method. Appropriate controls are performed and reacted as expected. Results on target cell population are indicated in the following table: RESULTS: ANTIBODY / CLONE RESULT Block A H Pylori (polyclonal) negative These tests were developed and their performance characteristics determined by [facility]. They may not have been cleared or approved by the U.S. Food and Drug Administration. The FDA has determined that such clearance or approval is not necessary. The above immunohistochemical/dualISH markers are ordered and reviewed by the Pathologist. INTERPRETATION: A. Gastric ulcer, biopsy: Negative for Helicobacter pylori organisms. SJ:austyn 07/01/2023
--- NOTE | 2023-06-30 07:58 | OP.EGD_ITS ---
Patient Name: Michael Mack Procedure Date: 06/30/2023 7:03 AM Date of : 1945 Age: 77 Procedure: Upper GI endoscopy Indications: Epigastric abdominal pain Providers: Luis Madrigal MD Medicines: Monitored Anesthesia Care Patient Profile: This is a 77 year old male. Refer to note in patient chart for documentation of history and physical. Complications: No immediate complications. Estimated blood loss: Minimal. Procedure: Pre-Anesthesia Assessment: - Prior to the procedure, a History and Physical was performed, and patient medications and allergies were reviewed. The patient's tolerance of previous anesthesia was also reviewed. The risks and benefits of the procedure and the sedation options and risks were discussed with the patient. All questions were answered, and informed consent was obtained. Prior Anticoagulants: The patient has taken Eliquis (apixaban), last dose was 3 days prior to procedure. After reviewing the risks and benefits, the patient was deemed in satisfactory condition to undergo the procedure. After obtaining informed consent, the endoscope was passed under direct vision. Throughout the procedure, the patient's blood pressure, pulse, and oxygen saturations were monitored continuously. The gastroscope was introduced through the mouth, and advanced to the third part of duodenum. The upper GI endoscopy was accomplished without difficulty. The patient tolerated the procedure well. Scope In: 7:31:58 AM Scope Out: 7:34:21 AM Total Procedure Duration Time 0 hours 2 minutes 23 seconds Findings: Few non-bleeding superficial gastric ulcers with no stigmata of bleeding were found in the gastric antrum. Biopsies were taken with a cold forceps for Helicobacter pylori testing. The esophagus was normal. The examined duodenum was normal. Impression: - Non-bleeding gastric ulcers with no stigmata of bleeding. Biopsied. - Normal esophagus. - Normal examined duodenum. Recommendation: - Discharge patient to home. - Resume previous diet. - Continue present medications. - Resume Eliquis (apixaban) at prior dose tomorrow. Procedure Code(s): --- Professional --- 82874, Esophagogastroduodenoscopy, flexible, transoral; with biopsy, single or multiple Diagnosis Code(s): --- Professional --- K25.9, Gastric ulcer, unspecified as acute or chronic, without hemorrhage or perforation R10.13, Epigastric pain CPT copyright 2021 [employer]. All rights reserved. The codes documented in this report are preliminary and upon data center engineer review may be revised to meet current compliance requirements. Luis Madrigal MD 06/30/2023 7:57:23 AM This report has been signed electronically. Number of Addenda: 0 Note Initiated On: 06/30/2023 7:03 AM
--- NOTE | 2023-06-30 07:58 | OP.CCLET_ITS ---
06/30/2023 Anthony Reyes [address] [place] [address] Re : Upper GI endoscopy procedure for Michael Frederick Dear Dr. Reyes This procedure was performed on Friday, June 30, 2023. My impressions and recommendations are as follows: Impressions : - Non-bleeding gastric ulcers with no stigmata of bleeding. Biopsied. - Normal esophagus. - Normal examined duodenum. Recommendations : - Discharge patient to home. - Resume previous diet. - Continue present medications. - Resume Eliquis (apixaban) at prior dose tomorrow. My findings are described in the full procedure note, which is enclosed. If I can be of further assistance, please feel free to contact me at Doctor phone number(s): , Work: . Sincerely, Luis Madrigal MD 06/30/2023 7:57:23 AM This report has been signed electronically.
--- NOTE | 2023-06-30 08:00 | OP.COLON_ITS ---
Patient Name: Michael Mack Procedure Date: 06/30/2023 7:35 AM Date of : 1945 Age: 77 Procedure: Colonoscopy Indications: Screening for colorectal malignant neoplasm Providers: Luis Madrigal MD Medicines: Monitored Anesthesia Care Patient Profile: This is a 77 year old male. Refer to note in patient chart for documentation of history and physical. Last Colonoscopy: more than 10 years ago. Complications: No immediate complications. Procedure: Pre-Anesthesia Assessment: - Prior to the procedure, a History and Physical was performed, and patient medications and allergies were reviewed. The patient's tolerance of previous anesthesia was also reviewed. The risks and benefits of the procedure and the sedation options and risks were discussed with the patient. All questions were answered, and informed consent was obtained. Prior Anticoagulants: The patient has taken Eliquis (apixaban), last dose was 3 days prior to procedure. After reviewing the risks and benefits, the patient was deemed in satisfactory condition to undergo the procedure. After I obtained informed consent, the scope was passed under direct vision. Throughout the procedure, the patient's blood pressure, pulse, and oxygen saturations were monitored continuously. The Colonoscope was introduced through the anus and advanced to the cecum, identified by appendiceal orifice and ileocecal valve. The colonoscopy was performed without difficulty. The patient tolerated the procedure well. The quality of the bowel preparation was good. The ileocecal valve, appendiceal orifice, and rectum were photographed. Scope In: 7:37:54 AM Scope Withdrawal Time 0 hours 6 minutes 9 seconds Scope Out: 7:46:43 AM Total Procedure Duration Time 0 hours 8 minutes 49 seconds Findings: A small polyp was found in the cecum. The polyp was removed with a hot snare. Resection and retrieval were complete. The exam was otherwise without abnormality on direct and retroflexion views. Impression: - One small polyp in the cecum, removed with a hot snare. Resected and retrieved. - The examination was otherwise normal on direct and retroflexion views. Recommendation: - Discharge patient to home. - Resume previous diet. - Continue present medications. - Resume Eliquis (apixaban) at prior dose tomorrow. - Repeat colonoscopy date to be determined after pending pathology results are reviewed for surveillance based on pathology results. Procedure Code(s): --- Professional --- 61069, Colonoscopy, flexible; with removal of tumor(s), polyp(s), or other lesion(s) by snare technique Diagnosis Code(s): --- Professional --- Z12.11, Encounter for screening for malignant neoplasm of colon D12.0, Benign neoplasm of cecum CPT copyright 2021 [employer]. All rights reserved. The codes documented in this report are preliminary and upon pr manager review may be revised to meet current compliance requirements. Luis Madrigal MD 06/30/2023 7:59:34 AM This report has been signed electronically. Number of Addenda: 0 Note Initiated On: 06/30/2023 7:35 AM
--- NOTE | 2023-06-30 08:00 | OP.CCLET_ITS ---
06/30/2023 Anthony Ryees [address] [place] [address] Re : Colonoscopy procedure for Michaelrizwana Mack Dear Dr. Reyes This procedure was performed on Friday, June 30, 2023. My impressions and recommendations are as follows: Impressions : - One small polyp in the cecum, removed with a hot snare. Resected and retrieved. - The examination was otherwise normal on direct and retroflexion views. Recommendations : - Discharge patient to home. - Resume previous diet. - Continue present medications. - Resume Eliquis (apixaban) at prior dose tomorrow. - Repeat colonoscopy date to be determined after pending pathology results are reviewed for surveillance based on pathology results. My findings are described in the full procedure note, which is enclosed. If I can be of further assistance, please feel free to contact me at Doctor phone number(s): , Work: . Sincerely, Luis Madrigal MD 06/30/2023 7:59:34 AM This report has been signed electronically.
== END 2023-06-30 08:45 | disposition home or self-care (01) ==
LOC: EN 06:15 → AC 06:18
PROVIDERS: PCP Family Medicine; Referring Provider Family Medicine; Visit Provider Surgery
PROC: 0DJD8ZZ Inspection of Lower Intestinal Tract, Via Natural or Artificial Opening Endoscopic (ICD-10-PCS; CPT 45378; principal; 2023-06-30 07:25)
DX: Z12.11 Encounter for screening for malignant neoplasm of colon (principal); I48.0 Paroxysmal atrial fibrillation; R10.13 Epigastric pain; K25.9 Gastric ulcer, unspecified as acute or chronic, without hemorrhage or perforation; I25.10 Atherosclerotic heart disease of native coronary artery without angina pectoris; E78.5 Hyperlipidemia, unspecified; K63.5 Polyp of colon; Z79.899 Other long term (current) drug therapy; Z79.01 Long term (current) use of anticoagulants; Z95.2 Presence of prosthetic heart valve; Z95.0 Presence of cardiac pacemaker; K29.70 Gastritis, unspecified, without bleeding
CPT/HCPCS: 45385; 43239; 88305; 88342; J7120; J2405

== ENCOUNTER → 2023-07-22 | Outpatient (CLI) | payer MEDICARE, BC, SELFPAY ==
[2023-07-22 18:04] LABS: Absolute Lymphocyte Count 1.99 X10^3/uL (0.83-4.51); Absolute Neutrophil Count 3.1 X10^3/uL (2.0-7.7); Basophil# 0.05 X10^3/uL; Basophil% 0.8 % (0-1); Eosinophil# 0.12 X10^3/uL; Hematocrit 42.8 % (40-54); Hemoglobin 14.2 g/dL (13.0-16.5); Lymphocyte # 1.99 X10^3/ul (0.83-4.51); Lymphocyte % 33.1 % (19-41); Mean Corp Hgb Conc 33.2 g/dL (32-36); Mean Corpuscular Hgb 31.3 pg (27.0-32.0); Mean Corpuscular Volume 94.5 fL (80-94); Mean Platelet Vol. 9.9 fl (6.2-12.0); Monocyte% 11.6 % (0-10); NRBC Flagged by Analyzer 0 % (0-5); Neutrophil # 3.14 X10^3/uL (2.7-7.7); Neutrophil % 52.2 % (47-70); Platelet Count 199 K/mm3 (150-450); RBC Distribution Width CV 12.4 % (11.6-14.6); Red Blood Count 4.53 M/mm3 (4.6-6.2)
[2023-07-22 18:35] LABS: Hemoglobin A1c 6.7 % (3.8-5.6)
[2023-07-22 18:52] LABS: ALB/GLOB Ratio 0.9 RATIO (0.9-2.4); AST(SGOT) 24 U/L (15-37); Alanine Aminotransfer ALT/SGPT 29 U/L (16-61); Albumin, Serum 3.3 g/dL (3.2-5.0); Alkaline Phosphatase 92 U/L (45-117); Anion Gap 6 (5-15); BUN 16 mg/dL (7-18); BUN/Creat Ratio 16.5 RATIO (10-20); Calcium,Total 8.4 mg/dL (8.5-10.1); Chloride 107 mmol/L (98-107); Cholesterol 150 mg/dL (200); Creatinine, Serum 0.97 mg/dL (0.70-1.30); EST Glomerular Filtration Rate 80 mL/min (>60); Est Glom Filt Rate - Afr Amer 97 mL/min (>60); Globulin 3.8 g/dL (2.2-4.2); Glucose 156 mg/dL (74-106); High Density Lipoprotein 42 mg/dL; Magnesium 2.3 mg/dL (1.6-2.6); Potassium 3.9 mmol/L (3.5-5.1); Protein, Total 7.1 g/dL (6.4-8.2); Sodium Level 139 mmol/L (136-145); Triglycerides 347 mg/dL; Very Low Density Lipoprotein 69 mg/dL (5-40)
[2023-07-22 19:02] LABS: Microalbumin,Random Urine 7.1 mg/L (NO RANGE EST.); Microalbumin:Creatinine Ratio 4.3 mg/g CRE (<30 mg/g CRE)
== END | disposition home or self-care (01) ==
LOC: MFPLAB 16:29
PROVIDERS: PCP Family Medicine; Visit Provider Family Medicine
DX: I25.10 Atherosclerotic heart disease of native coronary artery without angina pectoris (principal); I48.91 Unspecified atrial fibrillation; E11.9 Type 2 diabetes mellitus without complications
CPT/HCPCS: 36415; 80053; 80061; 82043; 82570; 83036; 83735; 85025

== ENCOUNTER → 2023-07-30 | Outpatient (CLI) | payer MEDICARE, BC, SELFPAY ==
--- NOTE | 2023-07-30 10:39 | ECHOCS_ITS ---
Version 2 Reason For Study: VALVE REPLACEMENT Procedure This was a 2D Doppler, Color Flow transthoracic echocardiogram. The study was technically difficult. Contrast injection was performed. Exam performed in department. Left Ventricle Normal LV size. Mild concentric left ventricular hypertrophy. Left ventricular systolic function is normal. The estimated ejection fraction is 55 %. Stage 1 diastolic dysfunction. No regional wall motion abnormalities noted. Right Ventricle Normal RV size. ICD or pacer leads identified within the right ventricle. Normal systolic function. Atria Normal left atrium. Mitral Valve Normal mitral valve. Tricuspid Valve Normal tricuspid valve. Mild tricuspid valve insufficiency. Pulmonary artery systolic pressure is 23 mmHg. Aortic Valve Peak aortic valve gradient 18 mmHg. Mean aortic valve gradient 11 mmHg. Bioprosthetic aortic valve. Pulmonic Valve The pulmonic valve is not well visualized. Great Vessels Normal aortic root. Pericardium/Pleural No pericardial effusion. Medication 22 gauge I.V. with prn adaptor inserted into right arm. Diluted definity 2ml given slow IV push to enhance endocardial definition. MMode/2D Measurements & Calculations LVIDd: 4.4 cm IVSd: 1.2 cm LVOT diam: 2.0 cm LVIDs: 3.1 cm LVPWd: 1.2 cm RVDd: 3.5 cm FS: 31.1 % LVOT area: 3.1 cm2 Ao root diam: 3.2 cm LAV(MOD-bp): 40.6 ml LVAd ap4: 39.4 cm2 LAV(MOD-bp) Indexed: 17.2 ml/m2 LVLd ap4: 8.4 cm LAV(MOD-sp2): 43.8 ml EDV(MOD-sp4): 142.6 ml LAV(MOD-sp4): 35.6 ml EDV(sp4-el): 156.1 ml LVAs ap4: 26.3 cm2 LVLs ap4: 7.6 cm ESV(MOD-sp4): 71.8 ml ESV(sp4-el): 77.2 ml EF(MOD-sp4): 49.7 % EF(sp4-el): 50.5 % LVAd ap2: 41.6 cm2 SV(MOD-sp4): 70.8 ml SV(MOD-sp2): 76.7 ml LVLd ap2: 9.0 cm EDV(MOD-sp2): 153.3 ml EDV(sp2-el): 162.6 ml LVAs ap2: 28.0 cm2 LVLs ap2: 7.9 cm ESV(MOD-sp2): 76.6 ml ESV(sp2-el): 84.0 ml EF(MOD-sp2): 50.0 % SV(sp4-el): 78.9 ml LA dimension(2D): 3.9 cm LA A4 area: 14.7 cm2 RA A4 area: 14.7 cm2 Time Measurements MV dec time: 0.20 sec Doppler Measurements & Calculations MV E max kathryn: 86.9 cm/sec Ao V2 max: 211.1 cm/sec MV A max kathryn: 107.3 cm/sec MV dec slope: 429.9 cm/sec2 Ao max P.8 mmHg MV E/A: 0.81 Ao V2 mean: 160.4 cm/sec Ao mean P.0 mmHg Ao V2 VTI: 41.6 cm AV (velocity ratio): 0.50 EDUAR(I,D): 1.6 cm2 EDUAR(V,D): 1.4 cm2 LV V1 max: 96.6 cm/sec SV(LVOT): 65.4 ml PA V2 max: 121.7 cm/sec LV V1 max P.7 mmHg PA max PG (full): 2.9 mmHg LV V1 mean P.4 mmHg LV V1 mean: 74.8 cm/sec LV V1 VTI: 20.9 cm TR max kathryn: 220.7 cm/sec TR max P.5 mmHg ECHO/Echo Complete W/ Contrast Interpretation Summary Normal LV size. Left ventricular systolic function is normal. The estimated ejection fraction is 55 %. Bioprosthetic aortic valve. Stage 1 diastolic dysfunction. Mild concentric left ventricular hypertrophy. Ordering Physician: Graciela Arrieta Referring Physician: Anthony Reyes Performed By: Almita Mcdowell RDCS
--- OUTSIDE RECORDS SUMMARY | 2023-07-30 20:22 | XMS RPT_ITS | CCD ---
Author Name Unknown Address [address] [place] [address] Organization [facility] Care Team Providers Care Counter Pocket Trimmer Name Role Phone PHYSICIAN, NONE Primary Care Physician Unavailab ehsan Au MD, Samina Zaman Primary Care Provider Amy ALVA, Samina Zaman Primary Care Provider SAMINA AU Primary Care Unavailable PRANAV BACON Attending Unavailable SAMINA AU Referring Unavailable PRANAV BACON Attending Unavailable SAMINA AU Primary Care Unavailable SAMINA AU Primary Care Unavailable GRACIELA SAINI Attending Unavailable SAMINA AU Primary Care Unavailable GRACIELA SAINI Attending Unavailable PRANAV BACON Attending Unavailable PRANAV BACON Referring Unavailable SAMINA AU Primary Care Unavailable PRANAV BACON Attending Unavailable PRANAV BACON Referring Unavailable SAMINA AU Primary Care Unavailable SAMINA AU Primary Care Unavailable GRACIELA SAINI Attending Unavailable GRACIELA SAINI Attending Unavailable GRACIELA SAINI Referring Unavailable SAMINA AU Primary Care Unavailable PRANAV BACON Attending Unavailable PRANAV BACON Referring Unavailable SAMINA AU Primary Care Unavailable GRACIELA SAINI Referring Unavailable SAMINA AU Primary Care Unavailable GRACIELA SAINI Attending Unavailable Medications Current Medications Medication Drug Class(es) Dates Sig (Normalized) Sig (Original) amoxicillin 500 mg oral capsule (17 sources) Penicillin-class Antibacterial Start: 10-04-2022 amoxicillin (Amoxil) 500 MG capsule Indications: S/P TAVR (transcatheter aortic valve replacement) Take 4 caps (2000 mg) 1 hour prior to procedure. 4 capsule 5 10/04/2022 Active apixaban 5 mg oral tablet (14 sources) Factor Xa Inhibitor Start: 12-26-2022 take [...] 05/14/2023 Active diazePAM 10 mg oral tablet (10 sources) Benzodiazepine Start: 03-12-2023 take 1 tablet by mouth once, then take 1 tablet by mouth every two hours diazePAM (Valium) 10 MG tablet Indications: Confusion and disorientation Take 1 tablet (10 mg) by mouth Once for 1 dose. 2 hours prior to the MRI 1 tablet 0 03/12/2023 Active donepezil hydrochloride 5 mg oral tablet (8 sources) Start: 03-27-2023 End: 05-05-2024 take 1 tablet by mouth at dinner donepezil (Aricept) 5 MG tablet Indications: Mild cognitive impairment with memory loss TAKE 1 TABLET (5 MG) BY MOUTH WITH EVENING MEAL. 90 tablet 1 05/06/2023 05/05/2024 Active Ibuprofen (14 sources) Nonsteroidal Anti-inflammatory Drug Ibuprofen (IBU PO) Take by mouth. otc 0 Active losartan potassium 50 mg oral tablet (15 sources) Angiotensin 2 Receptor Dejuan Start: 11-07-2022 End: 11-07-2023 take 1 tablet by mouth once daily losartan (Cozaar) 50 MG tablet Take 1 tablet (50 mg) by mouth daily. 90 tablet 3 11/07/2022 11/07/2023 Active metFORMIN hydrochloride 500 mg oral tablet (18 sources) Biguanide metFORMIN (Glucophage) 500 MG tablet Take by mouth. Tablet for 7 days then increase to 2 tabs daily 0 Active metoprolol tartrate 50 mg oral tablet (19 sources) beta-Adrenergic Dejuan Start: 01-31-2022 take 1 [...] Date Documented Da te Episodic/Chronic Cardiac dysrhythmias (18 sources) Atrial flutter; Translations: [Unspecified atrial flutter] Onset: 05-06-2022 05-06-2022 Chronic Conduction disorders (20 sources) Cardiac pacemaker in situ; Translations: [Presence of cardiac pacemaker] Onset: 07-25-2022 07-25-2022 Chronic Coronary atherosclerosis and other heart disease (18 sources) Coronary arteriosclerosis; Translations: [Atherosclerotic heart disease of [place] coronary artery without angina pectoris] Onset: 07-25-2022 07-25-2022 Chronic Essential hypertension (19 sources) Essential hypertension; Translations: [Essential (primary) hypertension] [...] 35.98 kg/m2 Pranav Bacon MD Work Phone: [facility] 03-27-2023 08:39-0400 Body weight 117.03 kg Pranav Bacon MD Work Phone: [facility] 03-27-2023 08:39-0400 Diastolic blood pressure 88 mm[Hg] Pranav Bacon MD Work Phone: [facility] 03-27-2023 08:39-0400 Heart rate 80 /min Pranav Bacon MD Work Phone: [facility] 03-27-2023 08:39-0400 Systolic blood pressure 138 mm[Hg] Pranav Bacon MD Work Phone: [facility] 03-19-2023 10:35-0400 Heart rate 70 /min Pranav Bacon MD Work Phone: [facility] 03-19-2023 10:35-0400 SaO2% (BldA) [Mass fraction] 96 % Pranav Bacon MD Work Phone: [facility] 03-19-2023 10:20-0400 Diastolic blood pressure 65 mm[Hg] Pranav Bacon MD Work Phone: [facility] 03-19-2023 10:20-0400 Systolic blood pressure 113 mm[Hg] Pranav Bacon MD Work Phone: [facility] 01-09-2023 11:24-0400 Body mass index (BMI) [Ratio] 34.73 kg/m2 Pranav Bacon MD Work Phone: [facility] 01-09-2023 11:24-0400 Body weight 112.95 kg Pranav Bacon MD Work Phone: [facility] 01-09-2023 11:24-0400 Diastolic blood pressure 76 mm[Hg] Pranav Bacon MD Work Phone: [facility] 01-09-2023 11:24-0400 Heart rate 69 /min Pranav Bacon MD Work Phone: [facility] 01-09-2023 11:24-0400 Systolic blood pressure 150 mm[Hg] Pranav Bacon MD Work Phone: [facility] 11-07-2022 10:14-0400 Body height 180.3 cm Graciela Saini APRN - [employer]RAY LINE WORKER Work Phone: [facility] 11-07-2022 10:14-0400 Body mass index (BMI) [Ratio] 35.34 kg/m2 Graciela Saini APRN - [employer] WORKER Work Phone: [facility] 11-07-2022 10:14-0400 Body weight 114.94 kg Graciela Saini APRN - [employer] WORKER Work Phone: [facility] 11-07-2022 10:14-0400 Diastolic blood pressure 88 mm[Hg] Graciela Saini APRN - [employer] WORKER Work Phone: [facility] 11-07-2022 10:14-0400 Heart rate 68 /min Graciela Saini APRN - [employer] WORKER Work Phone: [facility] 11-07-2022 10:14-0400 SaO2% (BldA) [Mass fraction] 96 % Graciela Saini APRN - [employer] WORKER Work Phone: [facility] 11-07-2022 10:14-0400 Systolic blood pressure 148 mm[Hg] Graciela Saini CONTACT AND SERVICE CLERKS SUPERVISOR - [employer] WORKER Work Phone: [facility] 11-07-2022 08:50-0400 Body height 180.3 cm Graciela Saini [employer]TA[employer] SERVICE [employer]ERKS SUPERVISOR - [employer] LINE WORKER Work Phone: [facility] 11-07-2022 08:50-0400 Body mass index (BMI) [Ratio] 34.45 kg/m2 Graciela Saini [employer] SERVICE [employer]ERKS SUPERVISOR - [employer] WORKER Work Phone: [facility] 11-07-2022 08:50-0400 Body weight 112.04 kg Graciela Saini [employer]TA[employer] SERVICE [employer]ERKS SUPERVISOR - [employer] WORKER Work Phone: [facility] 05-25-2021 12:36-0500 Body temperature 100.4 [degF] DR RAVIN GREGORIO MD [facility] 05-25-2021 12:36-0500 Diastolic blood pressure 77 mm[Hg] DR RAVIN GREGORIO MD [facility] 05-25-2021 12:36-0500 Heart rate 79 /min DR RAVIN GREGORIO MD [facility] 05-25-2021 12:36-0500 Respiratory rate 18 /min DR RAVIN GREGORIO MD [facility] 05-25-2021 12:36-0500 Systolic blood pressure 137 mm[Hg] DR RAVIN GREGORIO MD [facility] Encounters Encounter Date Encounter Type Care Provider Facility Start: 06-23-2023 Telephone encounter Pranav bardales MD Work Phone: [facility] Procedures Date Procedure Procedure Detail Performing [...] or wo fol wcon,Doppler Graciela L Poli CONTACT AND SERVICE [employer]ERKS SUPERVISOR - TRAY LINE WORKER Work Phone: Hemorrhoids (disorder) DR ALLIE GREGORIO MD Plan of Treatment Date Care Activity Detail Author Start: 04-29-2028 DTaP/Tdap/Td Vaccines (2 - Td or Tdap) DTaP/Tdap/Td Vaccines (2 - Td or Tdap) [facility] Start: 08-18-2023 End: 08-18-2023 Patient encounter procedure 08/18/2023 10:00 AM EDT Office Visit [facility] [address] [address] Pranav Bacon MD [address] [address] [facility] Start: 06-25-2023 End: 06-25-2023 Patient encounter procedure 06/25/2023 7:30 AM EST Office Visit [facility] [address] [phone] Pranav Bacon MD [address] [address] [facility] Start: 03-27-2023 End: 03-27-2023 Patient encounter procedure 03/27/2023 8:30 AM EDT Office Visit [facility] [address] [place] [phone] Pranav Bacon MD [address] [facility] [address] [place] [address] [facility] Start: 03-19-2023 End: 03-19-2023 Patient encounter procedure 03/19/2023 10:15 AM EDT Appointment [facility] [address] [place] [address] [facility] [address] Start: 02-26-2023 End: 02-26-2023 Clinical Support 02/26/2023 10:00 AM EDT Clinical Support [facility] [address] [place] [address] Pranav Bacon MD [address] [facility] [address] [place] [address] [facility] Start: 01-31-2023 Influenza vaccination [facility] Start: 01-09-2023 End: 01-10-2024 Home sleep test Home sleep test Sleep Center Routine Obstructive sleep apnea Expected: 01/09/2023 (Approximate), Expires: 01/10/2024 [facility] Work Phone: Payers Date Payer Category Payer Unknown RHONA Sanchez ANTH MEDICARE SUPPLEMENT [id number] 2017-Present [address] [place] [address] Supplement [id number] 2017 Unknown [id number] 2012 Medicare MEDICARE MEDICAR E PART A AND B [id number] 2012-Present [address] [place] [address] Medicare [id number] 2012 Medicare [id number] Social History Date Type Detail Facility Start: 08-05-2019 End: 04-09-2022 Never smoked tobacco (finding) [facility] Sex Assigned At Male [facility] Start: 04-09-2022 Tobacco use and exposure Smokeless tobacco non-user [facility] Start: 07-25-2022 End: 03-27-2023 Alcohol intake Ex-drinker (finding) [facility] Start: 1945 Sex Assigned At Not on file [facility] Start: 07-15-2022 End: 02-06-2023 Exposure to SARS-CoV-2 (event) Not sure [facility] Start: 11-07-2022 End: 03-27-2023 History of Social function [facility] Start: 11-07-2022 End: 03-27-2023 Tobacco use panel [facility] Medical Equipment Procedure Code Equipment Code Equipment Origin al Text Equipment Identifier Dates Valve Jammie Xt Nf 26mm - [id number] Start: 05-13-2022 Lead-05/21/2022 [id number] Start: 05-21-2022 Clinical Notes 05-25-2021 to 06-30-2023 Telephone Encounter - Pat Manriquez - 06/30/2023 1:51 PM ESTTelephone Encounter - Pat Manriquez - 06/30/2023 1:51 PM ESTTelephone Encounter - Danielle Elliott MA - 06/25/2023 8:11 AM EST Note Date & Type Note Facility 06-30-2023 Telephone encounter Note The pt's daughter Maren was notified. [facility] 06-30-2023 Miscellaneous Notes The pt's daughter Maren was notified. Lm for Maren to call the office back, please relay providers message. Lm for Maren to call the office back, please relay providers message. He does not get Eliquis from this office Name of caller: Maren Contact phone number: [phone] Relationship to Patient: patient Provider: Dr. Bacon Practice: [facility] Chief Complaint/Reason for Call: Maren states Eliquis 5 MG tablet is no longer covered by pts insurance. Pt would like to know if an alternative medication can be prescribed. Please advise. Best time of day caller can be reached: any Patient advised that office/PCP has 24-48 business hours to return their call: N/A documented in this encounter [facility] 06-25-2023 Telephone encounter Note Lm for Maren to call the office back, please relay providers message. [facility] 06-25-2023 Miscellaneous Notes Lm for Maren to call the office back, please relay providers message. Lm for Maren to call the office back, please relay providers message. He does not get Eliquis from this office Name of caller: Maren Contact phone number: [phone] Relationship to Patient: patient Provider: Dr. Bacon Practice: [facility] Chief Complaint/Reason for Call: Maren states Eliquis 5 MG tablet is no longer covered by pts insurance. Pt would like to know if an alternative medication can be prescribed. Please advise. Best time of day caller can be reached: any Patient advised that office/PCP has 24-48 business hours to return their call: N/A documented in this encounter [facility] 06-24-2023 Telephone encounter Note Lm for Maren to call the office back, please relay providers message. [facility] 06-24-2023 Miscellaneous Notes Lm for Maren to call the office back, please relay providers message. He does not get Eliquis from this office Name of caller: Maren Contact phone number: [phone] Relationship to Patient: patient Provider: Dr. Bacon Practice: [facility] Chief Complaint/Reason for Call: Maren states Eliquis 5 MG tablet is no longer covered by pts insurance. Pt would like to know if an alternative medication can be prescribed. Please advise. Best time of day caller can be reached: any Patient advised that office/PCP has 24-48 business hours to return their call: N/A documented in this encounter [facility] 06-23-2023 Telephone encounter Note He does not get Eliquis from this office [facility] 06-23-2023 Miscellaneous Notes He does not get Eliquis from this office Name of caller: Maren Contact phone number: [phone] Relationship to Patient: patient Provider: Dr. Bacon [...] their call: N/A documented in this encounter [facility] 06-23-2023 Telephone encounter Note Name of caller: Maren Contact phone number: [phone] Relationship to Patient: patient Provider: Dr. Bacon Practice: [facility] Chief Complaint/Reason for Call: Maren states Eliquis 5 MG tablet is no longer covered by pts insurance. Pt would like to know if an alternative medication can be prescribed. Please advise. Best time of day caller can be reached: any Patient advised that office/PCP has 24-48 business hours to return their call: N/A [facility] 05-06-2023 Telephone encounter Note Last ov- 03/27/23 Next ov- 06/25/23 [facility] 05-06-2023 Miscellaneous Notes Last ov- 03/27/23 Next ov- 06/25/23 documented in this encounter [facility] 03-27-2023 History of Presen t illness Narrative Images from the original note were not included. [facility] [address] [facility] [address] Dept: [phone] Dept Loc: [phone] Pranav Bacon MD CHIEF COMPLAINT: Chief Complaint Patient [...] sleepiness. The patient goes to bed around NE. It takes more than 30 min to [...] TSH 1.49 01/09/2023 INR 1.1 05/13/2022 @LASTAPPOINTMENTTHISPROV@ MR brain wo contrast Narrative: [facility] Name[facility]AVIN JONES : 1945 [id number] Exam Date/Time: 03/19/2023 10:49 Procedure: MR BRAIN [...] will have symptoms. No results found for: [id number] , HEPCAB Patient Name: RAVIN JONES : 1945 [id number] Exam Date/Time: 03/19/2023 10:49 Procedure: MR BRAIN [...] Date: 02/26/2023 : 1945 Study Location: [facility] Referring Provider: Pranav Bacon SUPERVISOR PUBLICATIONS#: [id number] Reading Physician: Pranav Bacon The patient is a 77 year-old Male who is 5' 11 and weighs 250.0 lbs. The BMI equals 35.0. Sleep History: history of claire, eds, memory loss ESS: STOP BANG 8 Current medications include: aspirin, Eliquis, Cozaar, Lopressor, Crestor, Effexor, Glucophage Medical history includes: A-fib/flutter, claire, EDS Procedure This was an unattended study performed using an [employer] MPR device. The patient received instruction on use of the device by a registered cytotechnologist/cytology supervisor. Monitored parameters included: airflow via nasal pressure [...] an item. Procedure: Type 3 portable monitor: [id number] ASSESSMENT AND PLAN Problem List Items Addressed [...] arranging for studies. documented in this encounter [facility] 03-19-2023 Nurse Note Patient to MRI for scan. Patient's medical history, allergies and medications reviewed. Patient has a history of 1st degree AV block, atrial flutter. Abott rep here to place patient in DOO/ safe mode with a rate of 70. See flowsheets for vitals. MRI completed. Abott, rep, placed patient back in pre MRI settings. [facility] 03-19-2023 Nurse Note Patient to MRI for scan. Patient's medical history, allergies and medications reviewed. Patient has a history of 1st degree AV block, atrial flutter. Abott rep here to place patient in DOO/ safe mode with a rate of 70. See flowsheets for vitals. MRI completed. Abott, rep, placed patient back in pre MRI settings. documented in this encounter [facility] 03-12-2023 Telephone encounter Note Maren has been notified [facility] 03-12-2023 Miscellaneous Notes Maren has been notified Rx sent to [facility] Name of caller: Maren Contact phone number: [phone] Relationship to Patient: family member patient and [...] their call: No documented in this encounter [facility] 03-12-2023 Telephone encounter Note Rx sent to [facility] 03-12-2023 Telephone encounter Note Name of caller: Maren Contact phone number: [phone] Relationship to Patient: family member patient and [...] business hours to return their call: No [facility] 02-07-2023 Telephone encounter Note Contacted Maren and answered all questions [facility] 02-07-2023 Miscellaneous Notes Contacted Maren and answered all questions Name of caller: Maren Contact phone number: [phone] Relationship to Patient: daughter Provider: DR Bacon Practice: [facility] Chief Complaint/Reason for Call: please call daughter Maren to discuss mri scheduling and about turning [...] Name of caller: Maren Contact phone number: [phone] Relationship to Patient: daughter Provider: DR bacon [...] their call: Yes documented in this encounter [facility] 02-07-2023 Telephone encounter Note Name of caller: Maren Contact phone number: [phone] Relationship to Patient: daughter Provider: DR Bacon Practice: [facility] Chief Complaint/Reason for Call: please call daughter Maren to discuss mri scheduling and about turning the pacemaker off. She is waiting for a date for the mri first before contacting cardiology for the pacemaker question. Sleep study is done. Best time of day caller can be reached: AM Patient advised that office/PCP has 24-48 business hours to return their call: Yes [facility] 02-05-2023 Telephone encounter Note Spoke with patient and answered all questions. [facility] 02-05-2023 Telephone encounter Note Name of caller: Maren Contact phone number: [phone] Relationship to Patient: daughter Provider: DR bacon [...] business hours to return their call: Yes [facility] 01-09-2023 History of Presen t illness Narrative Images from the original note were not included. [facility] [address] [facility] [address] Dept: [phone] Dept Loc: [phone] Pranav Bacon MD Thank you for your [...] sleepiness. The patient goes to bed around NE. It takes more than 30 min to [...] systolic function. Aortic Valve: Baron Jammie 3 [id number] transcatheter bioprosthetic aortic valve with a size [...] for: BRIJESH, SEDRATE, CRP, JOSE, ANCA, HOMOCYSTEINE, [id number], GLUCCSF No results found for: [id number], HEPCAB ASSESSMENT AND PLAN Problem List Items [...] arranging for studies. documented in this encounter [facility] 01-09-2023 Miscellaneous Notes Addended by: PRANAV BACON on: 01/21/2023 07:48 AM Modules accepted: Orders documented in this encounter [facility] 01-09-2023 Note Addended by: PRANAV BACON on: 01/21/2023 07:48 AM Modules accepted: Orders [facility] 11-07-2022 Evaluation + Plan note Associated Problem(s): LBBB (left bundle branch block) S/p PPM, followed by Dr. Kumari [facility] 11-07-2022 Miscellaneous Notes Associated Problem(s): LBBB (left [...] Return to work documented in this encounter [facility] 11-07-2022 Evaluation + Plan note Associated Problem(s): Essential hypertension Add Losartan, check BMP one week. He can follow up with PCP for BP (has appt today). [facility] 11-07-2022 Evaluation + Plan note Associated Problem(s): Presence of permanent cardiac pacemaker Followed by Dr. Kumari. [facility] 11-07-2022 Evaluation + Plan note Associated Problem(s): Aortic stenosis, severe S/p TAVR. Echo today shows normal EF, normal biopros valve function. Mean gradient is 16 mm Hg. Continue ASA. Return to work [facility] 11-07-2022 History of Presen t illness Narrative Images from the original note were not included. [facility] [address] [facility] [address] Dept: [phone] Dept Loc: [phone] Visit type: Established : 1945 Reason for [...] He subsequently had a pacemaker implanted at [facility]. His one month echo showed normal [...] 05/13/2022 Performed by Rocco Garcia MD at [facility] OR CT CORONARY CTA WITH PROV FFR-CT 04/16/2022 CT ANGIOGRAM TAVR 04/16/2022 [facility] [address] IMAGING CVHX LOOP RECORDER [...] MAXINE Manriquez CNP documented in this encounter [facility] 11-01-2022 Telephone encounter Note 1st attempted to get patient scheduled for a new patient appointment. Left message on voicemail to give the office a call back. [facility] 11-01-2022 Miscellaneous Notes 1st attempted to get patient scheduled for a new patient appointment. Left message on voicemail to give the office a call back. documented in this encounter [facility] 10-04-2022 Note Spoke with pt and in structed to continue 81 mg aspirin uninterrupted for dental procedures. Ordered amoxicillin and instructed pt on use. Pt verbalized understanding. Clearance form faxed to [facility] at [phone] [facility] 10-04-2022 Note Pt called in explain ing he is having a dental procedure of a tooth extraction on Friday10/07/22. Pt s/p TAVR 05/13/[address] Garcia. Pt having procedure at [facility]. Medical Clearance fax received and given to Marco Garcia CNP to review. Will call pt back once form completed. [facility] 09-06-2022 Telephone encounter Note LM with appointment details for patient. Advised to call if that does not work for him. [facility] 09-06-2022 Miscellaneous Notes LM with appointment details for patient. Advised to call if that does not work for him. Echo reviewed with Dr. Garcia. Recommends we follow clinically. Pls arrange repeat echo in 3 months and follow up with me. Pls also let patient know Dr. Garcia also recommends cardiac rehab. Thx mm documented in this encounter [facility] 08-05-2022 Telephone encounter Note Echo reviewed with Dr. Garcia. Recommends we follow clinically. Pls arrange repeat echo in 3 months and follow up with me. Pls also let patient know Dr. Garcia also recommends cardiac rehab. Thx mm [facility] 05-25-2021 Hospital Discharg e instructions Patient Education 05/25/2021 12:46:25 COVID-19 Prevent the Spread of COVID-19 If You Are Sick (10/19/2019) (Custom) Prevent the Spread of COVID-19 If You Are Sick Accessible version: https://www.cdc.gov/coronavirus/2 019-ncov/zi-hhm-ayy-sick/steps-wh en-sick.html If you are sick with COVID-19 [...] if you have questions about pets: https://www.cdc.gov/coronavirus/2 019ncov/faq.html#PDQHB47wfrwuhz Monitor your symptoms. Common symptoms of COVID-19 [...] and need to call 911, notify the sorter operator that you have or think you [...] clean your hands with an alcohol-based hand fabric worker fitter that contains at least 60% alcohol. Clean your hands often. Wash your hands often with soap and water for at least 20 seconds. This is especially important after blowing your nose, coughing, or sneezing; going to the bathroom; and before eating or preparing food. Use hand fabric worker fitter if soap and water are not available. Use an alcohol-based hand fabric worker fitter with at least 60% alcohol, covering all [...] and water or put them in the ophthalmic technician apprentice. Clean all high-touch surfaces everyday. Clean and [...] or body fluids on them. Use household clipping marker and disinfectants. Clean the area or item [...] loosen secretions in the nose and lungs. Lqvm-zbb-vvnezjg cold medicines will not shorten the length of time you re sick, but they may be helpful for the following symptoms: cough, sore throat, and nasal and sinus congestion. If you take prescription medicines, ask your healthcare provider or pharmacist which xaiy-wch-ydiunjg medicines are safe to use. (Note: Don't [...] it goes along with a muffled voice [phone] [employer]. [address] [place] [id number]. All rights reserved. This information is not [...] breath chest pain or other concerning symptoms. [facility] Evaluation + Plan note No data available for this section [facility] Essential hypertension- Primary Unspecified [...] (adult) (pediatric)- Primary [facility] HydrobeeReason for referral (narrative)* Consultation (Routine) - Pending Review Specialty Diagnoses / Procedures Referred By Bernardoac t Referred To Contact Otolaryngology Diagnoses Obstructive sleep apnea Procedures NE OFFICE/OUTPATIENT [facility] 60-74 MINUTES Pranav Bacon MD [address] [facility] [address] [place] [address] Donnell Seals DO [address] [place] [address] Referral ID Status Reason Start Date Expiration Date Visits Requested Visits Authorized [id number] Pending Review Specialty Services Required 03/26/2024 1 1 [facility] Summary Purpose Family History No Family [...] wo contrast Pranav Bacon MD [address] [facility] [address] [place] [address] Referral ID Status Reason Start Date Expiration Date V isits Requested Visits Authorized [id number] Pending Review 01/09/2023 07/08/2023 1 1 Specialty Diagnoses / Procedures Referred By Contac t Referred To Contact Sleep Medicine Diagnoses Obstructive sleep apnea Procedures Home sleep test Pranav Bacon MD [address] [facility] [address] [place] [address] Referral ID Status Reason Start Date Expiration Date V isits Requested Visits Authorized [id number] Pending Review 01/09/2023 07/08/2023 1 1 Specialty Diagnoses / Procedures Referred By Contac t Referred To Contact Cardiology Diagnoses S/P TAVR (transcatheter aortic valve replacement) Shortness of breath Procedures Transthoracic echocardiogram (TTE) complete with contrast, bubble, strain, and 3D PRN NE ECHO TTHRC R-T 2D W/WOM-MODE COMPL SPEC&COLR D NE TTE W OR WO FOL WCON,DOPPLER Graciela Saini, CONTACT AND SERVICE CLERKS SUPERVISOR - TRAY LINE WORKER [address] [address] Referral ID Status Reason Start Date Expiration Date Visits Requested Visits Authorized [id number] Pending Review Perform Procedure 08/05/2022 02/01/2023 1 1 Additional Source Comments (unrecognized sect ion and content) No Status Records FoundNo Status Records Found INFORMATION SOURCE (unrecogn ized section and content) DATE CREATED AUTHOR AUTHOR'S ORGANIZ ATION 07/01/2023 [facility] Care Teams (unrecognized sec tion and content) Counter Pocket Trimmer Relationship Specialty Start Date End Date Samina Au MD [address] [place] [address] PCP - General Family Medicine 04/16/22 Counter Pocket Trimmer Relationship Specialty Start Date End Date Samina Au MD [address] [place] [address] PCP - General Family Medicine 04/16/22 Counter Pocket Trimmer Relationship Specialty Start Date End Date Samina Au MD [address] [place] [address] PCP - General Family Medicine 04/16/22 Counter Pocket Trimmer Relationship Specialty Start Date End Date Samina Au MD [address] [place] [address] PCP - General Family Medicine 04/16/22 Counter Pocket Trimmer Relationship Specialty Start Date End Date Samina Au MD [address] [place] [address] PCP - General Family Medicine 04/16/22 Counter Pocket Trimmer Relationship Specialty Start Date End Date Samina Au MD [address] [place] [address] PCP - General Family Medicine 04/16/22 Counter Pocket Trimmer Relationship Specialty Start Date End Date Samina Au MD [address] [place] [address] PCP - General Family Medicine 04/16/22 Counter Pocket Trimmer Relationship Specialty Start Date End Date Samina Au MD [address] [place] [address] PCP - General Family Medicine 04/16/22 Counter Pocket Trimmer Relationship Specialty Start Date End Date Samina Au MD [address] [place] [address] PCP - General Family Medicine 04/16/22 Counter Pocket Trimmer Relationship Specialty Start Date End Date Samina Au MD [address] [place] [address] PCP - General Family Medicine 04/16/22 Counter Pocket Trimmer Relationship Specialty Start Date End Date Samina Au MD [address] [place] [address] PCP - General Family Medicine 04/16/22 Counter Pocket Trimmer Relationship Specialty Start Date End Date Samina Au MD [address] [place] [address] PCP - General Family Medicine 04/16/22 Counter Pocket Trimmer Relationship Specialty Start Date End Date Samina Au MD [address] [place] [address] PCP - General Family Medicine 04/16/22 Reason for Visit (unrecogniz ed section and content) Specialty Diagnoses / Procedures Referred By Contjarocho t Referred To Contact Cardiology Diagnoses S/P TAVR (transcatheter aortic valve replacement) Shortness of breath Procedures Transthoracic echocardiogram (TTE) complete with contrast, bubble, strain, and 3D PRN NE ECHO TTHRC R-T 2D W/WOM-MODE COMPL SPEC&COLR D NE TTE W OR WO FOL WCON,DOPPLER Graciela Saini, CONTACT AND SERVICE CLERKS SUPERVISOR - TRAY LINE WORKER [address] [place] [address] [address] [facility] [address] [place] [address] Referral ID Status Reason Start Date Expiration Date V isits Requested Visits Authorized [id number] Closed Perform Procedure 08/05/2022 02/01/2023 1 1 Reason Comments New Patient Memory Loss Specialty Diagnoses / Procedures Referred By Herminia edward Referred To Contact Neurology Diagnoses Other amnesia Procedures NE OFFICE/OUTPATIENT NEW MODERATE MDM 45-59 MINUTES Samina Au MD [address] [facility] [address] [place] [address] Pranav Bacon MD [address] [facility] [address] [place] [address] Referral ID Status Reason Start Date Expiration Date V isits Requested Visits Authorized [id number] Pending Review 10/31/2022 10/31/2023 1 1 Reason Onset Date Comments Orders 02/05/2023 Reason Onset Date Comments Medication Question 03/12/2023 Anxiety Medi cation for MRI Specialty Diagnoses / Procedures Referred By Herminia edward Referred To Contact Radiology Diagnoses Mild cognitive impairment with memory loss Confusion and disorientation Procedures MR brain wo contrast Pranav Bacon MD [address] [facility] [address] [place] [address] Referral ID Status Reason Start Date Expiration Date Visits Re quested Visits Authorized [id number] Closed 01/09/2023 07/08/2023 1 1 Reason Comments [...] BE BASED ON THE PRIMARY CLINICAL RECORDS. [facility] [employer] [facility]. provides no warranty or guarantee of the accuracy or completeness of information in this document.
== END | disposition home or self-care (01) ==
LOC: CVS 10:35
PROVIDERS: PCP Family Medicine; Referring Provider Physician Assistant Medical; Visit Provider Physician Assistant Medical
DX: I48.0 Paroxysmal atrial fibrillation (principal); Z95.2 Presence of prosthetic heart valve
CPT/HCPCS: 93306; Q9957; A4216; C8929

== ENCOUNTER 2023-08-08 13:30 | Outpatient (RCR) | payer MEDICARE, BC, SELFPAY ==
--- NOTE | 2023-06-18 18:49 | HP.PTEVAL ---
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 Date of Evaluation: 06/18/23 Physical Therapist: Concepción Fontenot MPT Visit Plan Frequency: 2x /Week Duration: 2 Months Plan: 2X/ week for 8 weeks for stretching of L-spine, Piriformis/HS/gentle hip flexor stretching, strengthening of B ankles, core, hips and postural exercises with gait training and body mechanics HEP: bridges, LTR, standing heel and toe raises, supine knee to opp shoulder piriformis stretches. Also discussed his trouble breathing and how posture affects breathing which we demonstrated here in the clinic Subjective Subjective: He had back surgery last year and did not do PT (he refused to go) and he gets sciatic flare ups and takes a lot of IBprof and his daughter gave all the subjective info. Took like 30 IBPROF in 48 hour period. His daughter sets up PT and his flare up gets better and he cancels it. He takes 2 Tylenol every day now. According to the x-ray there are still discs that compressed and in order to fix those would be more surgery. said that exercises and stretching will help the compression of the discs. He has problems with pain and breathing since the surgery. He has trouble stepping up on a curb or threshold. He has B foot neuropathy. Pain back pain\: Pain Intensity (Out of 10): 0 Objective Objective: Gait: walks with decrease step length (advancing leg does not pass stance leg), B forefoot ER, no trunk rotation with gait Trunk flexion 50%, ext not even to neutral, SB B 25%, LE MMT: R hip flex 22.3 and L 14.8 R knee ext 30.7 and L 26.7 R knee flex 15.8 and L 11.2 Pt is able to heel and toe raise but decrease toe raise on the L. Pt is able to get up out of the chair without using his arms but struggles -SLUMP test B -SLR test B Bridge 3/4 normal ROM and really pulls on Quads Tight HS, B Piriformis LTR felt like it loosened up his back Pt struggled to get up from supine but instructed pt into rolling to s/l and then sit up and did much better Pt walked out feeling better and able to walk better Pt was able to step over a 6 inch block without using his UE with CGA with some LOB Balance/Special Test Scores Oswestry Low Back Score: 18 Goals Goal 1:: I HEP Goal Time Frame: 6-8 Weeks Goal 2:: Decrease freq of back flare ups to less than twice a week Goal Time Frame: 4-6 Weeks Goal 3:: Be able to walk with increase stride length with no pain Goal Time Frame: 4-6 Weeks Rehabilitation Potential Rehabilitation Potential: Good Anticipated Interventions Patient/Client Instruction: Educate patient on: Condition and Plan of Care For the Purpose of:: To decrease pain, To increase ROM, To improve nutrient delivery to tissue, To improve muscle performance and motor function, To improve ability to perform ADL's, To increase tolerance to activity/condition/position, To improve performance and independence with ADL's, To improve ability of physical actions for home/community/work/leisure, To improve gait and locomotor functions, To improve health of tissue, To decrease soft tissue restriction and To increase flexibility/ROM Therapeutic Exercise to Include: Strength training, Endurance training, Body mechanics, Postural training, Flexibilty training, Gait and locomotor training, Neuromotor development, Active ROM, Dynamic Lumbar Stabilization and Scapular Strength/Stabilization For the Purpose of:: To decrease pain, To increase ROM, To improve nutrient delivery to tissue, To increase oxygenation perfusion, To improve muscle performance and motor function, To improve ability to perform ADL's, To increase tolerance to activity/condition/position, To improve performance and independence with ADL's, To decrease level of supervision to perform tasks, To improve ability of physical actions for home/community/work/leisure, To improve gait and locomotor functions, To improve health of tissue, To decrease soft tissue restriction and To increase flexibility/ROM Functional Training to Include: Gait training For the Purpose of:: To improve gait and locomotor functions Manual Therapy Techniques to Include: Passive ROM and Soft tissue mobilization For the Purpose of:: To decrease pain, To decrease swelling/inflammation, To increase ROM and To improve nutrient delivery to tissue Text: Thank you for the opportunity to evaluate your patient. For Medicare and Medicare HMO plans, please review the plan of care and approve it. It will need to be FAXED BACK to us at [phone] for Medicare purposes. For Medicare only, by signing this I certify the plan of care. Please let me know if there are questions or concerns regarding this plan of care. Physician Signature: Date:
--- NOTE | 2023-07-16 14:59 | HP.PTREVAL_ITS ---
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 Please see the progress note below for an update on the physical therapy plan of care! Subjective Subjective: He still has off and on sicatic pain since surgery but he is physically better. He has more energy and can do more. Every morning his has pain when laying in bed and when he gets up and he gets it to go away with a few Tylenol and moving. He feels stronger overall. He would like to do more PT and see if it helps. He has not had any back flare ups since he started in PT. He was taking 30 IBPROF in a day before and now he takes 6 only as needed (twice a week now). Pt is not doing a HEP Objective Objective/Function: LE MMT: R hip flex 19.5 and L 16.8 R knee ext 29.9 and L 28.7 R knee flex 17 and L 13.1 Pt is able to take bigger strides if asked but a little more unsteady but no pain Pt still has pain every morning but his major flare ups have not been present since the start of PT Plan Plan Plan: 2X/ week for 8 weeks for stretching of L-spine, Piriformis/HS/gentle hip flexor stretching, strengthening of B ankles, core, hips and postural exercises with gait training and body mechanics HEP: bridges, LTR, standing heel and toe raises, supine knee to opp shoulder piriformis stretches. Also discussed his trouble breathing and how posture affects breathing which we demonstrated here in the clinic Balance/Gait/Functional tests Balance/Special Test Scores Oswestry Low Back Score: 10 Goals Goals Goal 1:: I HEP Goal Time Frame: 6-8 Weeks Goal 2:: Decrease freq of back flare ups to less than twice a week Goal Time Frame: 4-6 Weeks Goal Progress: Goal Met Goal 3:: Be able to walk with increase stride length with no pain Goal Time Frame: 4-6 Weeks Goal Progress: Progressing Goal 4:: Increase LE strength (at re-eval: R hip flex 19.5 and L 16.8 R knee ext 29.9 and L 28.7 R knee flex 17 and L 13.1) Goal Time Frame: 2-4 Weeks Goal 5:: Be able to walk with more upright posture Goal Time Frame: 2-4 Weeks Anticipated Interventions Anticipated Interventions Patient/Client Instruction: Educate patient on: Condition and Plan of Care For the Purpose of:: To decrease pain, To increase ROM, To improve nutrient delivery to tissue, To improve muscle performance and motor function, To improve ability to perform ADL's, To increase tolerance to activity/condition/position, To improve performance and independence with ADL's, To improve ability of physical actions for home/community/work/leisure, To improve gait and locomotor functions, To improve health of tissue, To decrease soft tissue restriction and To increase flexibility/ROM Therapeutic Exercise to Include: Strength training, Endurance training, Body mechanics, Postural training, Flexibilty training, Gait and locomotor training, Neuromotor development, Active ROM, Dynamic Lumbar Stabilization and Scapular Strength/Stabilization For the Purpose of:: To decrease pain, To increase ROM, To improve nutrient delivery to tissue, To increase oxygenation perfusion, To improve muscle performance and motor function, To improve ability to perform ADL's, To increase tolerance to activity/condition/position, To improve performance and independence with ADL's, To decrease level of supervision to perform tasks, To improve ability of physical actions for home/community/work/leisure, To improve gait and locomotor functions, To improve health of tissue, To decrease soft tissue restriction and To increase flexibility/ROM Functional Training to Include: Gait training For the Purpose of:: To improve gait and locomotor functions Manual Therapy Techniques to Include: Passive ROM and Soft tissue mobilization For the Purpose of:: To decrease pain, To decrease swelling/inflammation, To increase ROM and To improve nutrient delivery to tissue Re-Evaluation Ending Re-evaluation ending: Please do not hesitate to contact me at [phone] by phone or Fax: if you have questions or concerns regarding this new plan of care! Sincerely, FAMILIA Guerra
--- NOTE | 2023-12-12 14:20 | HP.PT.NRP ---
Patient Information Patient Information: RAVIN JONES was seen in my office for initial evaluation on 06/18/23. The following Plan of Care was established for this patient: POC Established Initial Frequency: 2x /Week Initial Duration: 2 Months Anticipated Interventions Patient/Client Instruction: Educate patient on: Condition and Plan of Care For the Purpose of:: To decrease pain, To increase ROM, To improve nutrient delivery to tissue, To improve muscle performance and motor function, To improve ability to perform ADL's, To increase tolerance to activity/condition/position, To improve performance and independence with ADL's, To improve ability of physical actions for home/community/work/leisure, To improve gait and locomotor functions, To improve health of tissue, To decrease soft tissue restriction and To increase flexibility/ROM Therapeutic Exercise to Include: Strength training, Endurance training, Body mechanics, Postural training, Flexibilty training, Gait and locomotor training, Neuromotor development, Active ROM, Dynamic Lumbar Stabilization and Scapular Strength/Stabilization For the Purpose of:: To decrease pain, To increase ROM, To improve nutrient delivery to tissue, To increase oxygenation perfusion, To improve muscle performance and motor function, To improve ability to perform ADL's, To increase tolerance to activity/condition/position, To improve performance and independence with ADL's, To decrease level of supervision to perform tasks, To improve ability of physical actions for home/community/work/leisure, To improve gait and locomotor functions, To improve health of tissue, To decrease soft tissue restriction and To increase flexibility/ROM Functional Training to Include: Gait training For the Purpose of:: To improve gait and locomotor functions Manual Therapy Techniques to Include: Passive ROM and Soft tissue mobilization For the Purpose of:: To decrease pain, To decrease swelling/inflammation, To increase ROM and To improve nutrient delivery to tissue Last Seen Last Seen: This patient was last seen in our office 08/08/23. Pertinent comments regarding their Physical therapy will appear below: [facility] PT At this point I will be discontinuing this patient from physical therapy. I would be happy to see this patient again in the future if found appropriate by the physician. Thank you! Concepción Fontenot, MPT Balance/Gait/Functional tests Balance/Special Test Scores Oswestry Low Back Score: 10
== END 2023-08-08 19:00 | disposition home or self-care (01) ==
LOC: PT 13:30
PROVIDERS: PCP Family Medicine
DX: M51.36 Other intervertebral disc degeneration, lumbar region (principal)
CPT/HCPCS: 97110; 97161; 97530

== ENCOUNTER → 2023-11-19 | Outpatient (CLI) | payer MEDICARE, BC, SELFPAY ==
[2023-11-19 14:08] LABS: Bacteria 0 SEEN /hpf (None Seen); Mucous, Urine 0 SEEN /hpf (<or=2+); Red Blood Cells-Urine 0 SEEN /hpf (0-5); Squamous Epithelial Cells - UA 0 SEEN /hpf (0-5); White Blood Cells 0 SEEN /hpf (0-5)
[2023-11-19 15:38] LABS: Absolute Lymphocyte Count 2.85 X10^3/uL (0.83-4.51); Absolute Neutrophil Count 2.1 X10^3/uL (2.0-7.7); Basophil# 0.04 X10^3/uL; Basophil% 0.7 % (0-1); Eosinophil# 0.14 X10^3/uL; Eosinophils% 2.5 % (0-5); Hematocrit 41.1 % (40-54); Hemoglobin 13.5 g/dL (13.0-16.5); Lymphocyte # 2.85 X10^3/ul (0.83-4.51); Lymphocyte % 50.6 % (19-41); Mean Corp Hgb Conc 32.8 g/dL (32-36); Mean Corpuscular Hgb 31.5 pg (27.0-32.0); Mean Platelet Vol. 10.2 fl (6.2-12.0); Monocyte% 8.9 % (0-10); NRBC Flagged by Analyzer 0 % (0-5); Neutrophil # 2.08 X10^3/uL (2.7-7.7); Neutrophil % 36.9 % (47-70); Platelet Count 156 K/mm3 (150-450); RBC Distribution Width CV 12.7 % (11.6-14.6); RBC Distribution Width SD 44.6 fl (35.1-43.9); Red Blood Count 4.28 M/mm3 (4.6-6.2); White Blood Count 5.6 K/mm3 (4.4-11.0)
[2023-11-19 16:20] LABS: Hemoglobin A1c 6.6 % (3.8-5.6)
[2023-11-19 16:37] LABS: ALB/GLOB Ratio 0.9 RATIO (0.9-2.4); AST(SGOT) 26 U/L (15-37); Alanine Aminotransfer ALT/SGPT 38 U/L (16-61); Albumin, Serum 3.3 g/dL (3.2-5.0); Alkaline Phosphatase 89 U/L (45-117); Anion Gap 8 (5-15); BUN 17 mg/dL (7-18); Calcium,Total 8.6 mg/dL (8.5-10.1); Chloride 105 mmol/L (98-107); Cholesterol 141 mg/dL (200); EST Glomerular Filtration Rate 77 mL/min (>60); Est Glom Filt Rate - Afr Amer 93 mL/min (>60); Globulin 3.6 g/dL (2.2-4.2); Glucose 146 mg/dL (74-106); High Density Lipoprotein 43 mg/dL; Magnesium 2.2 mg/dL (1.6-2.6); Potassium 4.1 mmol/L (3.5-5.1); Protein, Total 6.9 g/dL (6.4-8.2); Sodium Level 138 mmol/L (136-145); Triglycerides 194 mg/dL; Very Low Density Lipoprotein 39 mg/dL (5-40)
[2023-11-19 18:04] LABS: Color, Urine Yellow (Yellow); Glucose, Dipstick Normal (Normal); Ketone-Dipstick Negative (Negative); Leukocyte Esterase-Dipstick Negative /ul (Negative); Nitrite-Dipstick Negative (Negative); Occult Blood-Urine Negative /ul (Negative); Protein-Dipstick Negative (Negative); Specific Gravity, Urine 1.025 (1.002-1.030); Urine Bilirubin Dipstick Negative (Negative); Urine Clarity Clear (Clear); Urine Urobilinogen 4 mg/dl (Normal)
[2023-11-19 18:30] LABS: Microalbumin,Random Urine 6.9 mg/L (NO RANGE EST.); Microalbumin:Creatinine Ratio 3.9 mg/g CRE (<30 mg/g CRE)
== END | disposition home or self-care (01) ==
LOC: MFPLAB 14:05
PROVIDERS: PCP Family Medicine; Visit Provider Family Medicine
DX: E11.8 Type 2 diabetes mellitus with unspecified complications (principal); I48.91 Unspecified atrial fibrillation
CPT/HCPCS: 36415; 80053; 80061; 81001; 82043; 82570; 83036; 83735; 85025

== ENCOUNTER → 2024-03-11 | Outpatient (CLI) | payer MEDICARE, BC, SELFPAY ==
[2024-03-11 15:06] LABS: Absolute Lymphocyte Count 4.39 X10^3/uL (0.83-4.51); Absolute Neutrophil Count 2.2 X10^3/uL (2.0-7.7); Basophil# 0.05 X10^3/uL; Basophil% 0.7 % (0-1); Eosinophil# 0.23 X10^3/uL; Hematocrit 44.5 % (40-54); Hemoglobin 14.9 g/dL (13.0-16.5); Lymphocyte # 4.39 X10^3/ul (0.83-4.51); Lymphocyte % 57.8 % (19-41); Mean Corp Hgb Conc 33.5 g/dL (32-36); Mean Corpuscular Hgb 32.1 pg (27.0-32.0); Mean Corpuscular Volume 95.9 fL (80-94); Mean Platelet Vol. 10.7 fl (6.2-12.0); Monocyte# 0.69 X10^3/uL; Monocyte% 9.1 % (0-10); NRBC Flagged by Analyzer 0 % (0-5); Neutrophil # 2.21 X10^3/uL (2.7-7.7); Neutrophil % 29.1 % (47-70); Platelet Count 157 K/mm3 (150-450); RBC Distribution Width CV 12.9 % (11.6-14.6); RBC Distribution Width SD 45.1 fl (35.1-43.9); Red Blood Count 4.64 M/mm3 (4.6-6.2); White Blood Count 7.6 K/mm3 (4.4-11.0)
[2024-03-11 15:41] LABS: ALB/GLOB Ratio 0.9 RATIO (0.9-2.4); AST(SGOT) 38 U/L (15-37); Alanine Aminotransfer ALT/SGPT 37 U/L (16-61); Albumin, Serum 3.3 g/dL (3.2-5.0); Alkaline Phosphatase 91 U/L (45-117); Anion Gap 8 (5-15); BUN 17 mg/dL (7-18); BUN/Creat Ratio 17.2 RATIO (10-20); Calcium,Total 8.8 mg/dL (8.5-10.1); Chloride 108 mmol/L (98-107); Cholesterol 152 mg/dL (200); Creatinine, Serum 0.99 mg/dL (0.70-1.30); EST Glomerular Filtration Rate 78 mL/min (>60); Est Glom Filt Rate - Afr Amer 95 mL/min (>60); Globulin 3.8 g/dL (2.2-4.2); Glucose 210 mg/dL (74-106); High Density Lipoprotein 38 mg/dL; Magnesium 2.1 mg/dL (1.6-2.6); Protein, Total 7.1 g/dL (6.4-8.2); Sodium Level 139 mmol/L (136-145); Triglycerides 340 mg/dL; Very Low Density Lipoprotein 68 mg/dL (5-40)
[2024-03-11 16:04] LABS: Microalbumin,Random Urine 10.5 mg/L (NO RANGE EST.)
== END | disposition home or self-care (01) ==
PROVIDERS: PCP Family Medicine; Visit Provider Family Medicine
DX: I48.91 Unspecified atrial fibrillation (principal); E11.8 Type 2 diabetes mellitus with unspecified complications; I25.10 Atherosclerotic heart disease of native coronary artery without angina pectoris
CPT/HCPCS: 36415; 80053; 80061; 82043; 82570; 83036; 83735; 85025

== ENCOUNTER 2024-06-06 18:42 | Emergency (ER) | payer MEDICARE, SELFPAY ==
[2024-06-06 18:43] VITALS: BP 153/85; PULSE 101; RESP 16; TEMP 36.7; O2SAT 98; BMI 36.2
--- NOTE | 2024-06-06 19:01 | EX.ED.UPPERE ---
HPI History of Present Illness Chief Complaint: Upper Extremity Injury Narrative Narrative: 78-year-old male past medical history of mild dementia/memory loss, oizwq-wiou-rolxrkie, presents with his daughter because of pain and swelling in his left shoulder. They deny that he has had any falls. He states that within the last 24 hours he noticed pain in his left shoulder. No real exacerbating or alleviating factors except for the ibuprofen 600 mg that he took. While he has past medical history of pacemaker and atrial fibrillation and is supposed to be on Eliquis, he states he has not taken it recently because he ran out. He denies any falls onto his left shoulder. His daughter noticed that there was swelling a little more anteriorly in his shoulder joint and in the acromioclavicular joint. No fevers or chills, no erythema or bruising to the area. [facility] Medical History Wears glasses MRSA infection Depression Anxiety Prediabetes Arthritis High cholesterol Heartburn Non-smoker History of echocardiogram History of stress test Cardiology follow-up encounter History of atrial fibrillation Presence of permanent cardiac pacemaker Second degree AV block, Mobitz type I Bradycardia BARRIOS (dyspnea on exertion) COVID-19 (05/30/21) Obstructive sleep apnea Paroxysmal atrial flutter (2011) Nonobstructive atherosclerosis of coronary artery Hemothorax (08/2011) Nonrheumatic mitral (valve) stenosis Paroxysmal atrial fibrillation (2011) Non-rheumatic aortic stenosis Atrial fibrillation and flutter Hyperlipidemia Left bundle branch block Syncope Home Medications ?Medication ?Instructions ?Recorded ?Last Taken ?Type venlafaxine 75 mg tablet 75 mg PO BID mood 11/30/15 06/30/23 History albuterol sulfate 90 mcg/actuation 1 - 2 puff inhalation Q6H PRN PRN 01/13/19 Unknown History aerosol inhaler Wheezing ibuprofen 200 mg capsule 200 mg PO Q6H PRN Pain 11/26/21 Unknown History rosuvastatin 20 mg tablet 10 mg PO DAILY 12/26/22 06/29/23 History losartan 50 mg tablet 50 mg PO DAILY 12/27/22 06/29/23 History donepezil 5 mg tablet 5 mg PO DAILY 04/28/23 06/29/23 History cyanocobalamin (vitamin B-12) 1,000 mcg PO DAILY 06/25/23 Unknown History 1,000 mcg tablet omeprazole 20 mg tablet,delayed 20 mg PO DAILY #56 TABLETS 08/22/23 Unknown Rx release warfarin 4 mg tablet 4 mg PO DAILY #30 tabs 08/28/23 Unknown Rx apixaban 5 mg tablet (Eliquis) 5 mg PO BID #180 tabs 09/12/23 Unknown Rx metoprolol tartrate 50 mg tablet 50 mg PO BID #180 tabs 05/10/24 Unknown Rx Allergy/AdvReac Type Severity Reaction Status Date / Time No Known Allergies Allergy Verified 06/06/24 18:43 Family History Father CAD (coronary artery disease) Surgical History History of cardiac catheterization History of transcatheter aortic valve replacement (TAVR) (05/13/22) H/O laminectomy (12/11/21) History of nasal septoplasty History of loop recorder (08/21/11) History of electrophysiologic study (08/21/11) H/O hemorrhoidectomy excision lung nodule History of left heart catheterization (03/04/22) Social History Smoking Status: Never smoker alcohol intake: current alcohol intake frequency: holidays/special occasions only substance use type: does not use caffeine: Yes Type: carbonated beverages Number of servings: 1 and tea Number of servings: 1 ROS ROS ED ROS Narrative Mildly limited secondary to memory loss. No fevers or chills, no chest pain or shortness of breath. No recent falls. Mild swelling to left shoulder area over the acromioclavicular joint. No ecchymosis. EXAM Physical Exam Narrative Exam Narrative: Afebrile. Vital signs noted. GCS 15. ABCs intact. Cardiovascular examination reveals a regular rate and rhythm with intermittent tachycardia. Lungs clear to auscultation bilaterally. Abdomen soft and nontender with normoactive bowel sounds. Neurological examination is nonfocal and nonlateralizing. Inspection of the left shoulder does reveal mild swelling without fluctuance in the left acromioclavicular area. While it was initially thought that this was asymmetric, the way he is positioning his shoulder on the right shows mild swelling as well. He appears neurovascular tact distally with palpable radial pulse and full range of motion of his left shoulder. No clinical dislocation. Const Vital Signs: 06/06/24 18:43 Temperature 98.0 F Temperature Source Oral Pulse Rate 101 H Respiratory Rate 16 Blood Pressure 153/85 H Blood Pressure Mean 107 Pulse Ox 98 Oxygen Delivery Method Room Air MDM MDM MDM Narrative Medical decision making narrative: Differential diagnosis includes but not limited to clavicular fracture versus AC joint separation versus positioning of shoulder. Versus fracture. I have very low suspicion for joint dislocation based on patient's history and physical. X-rays will be obtained of the left shoulder to help rule out fracture. I will also obtain right x-rays as well for comparison as he did have the same protrusion on the right shoulder when he was holding his shoulders forward/raising his arm. X-rays of the left and right shoulders interpreted by myself independently show no evidence of an acute fracture or dislocation. Reviewed the radiology report which confirms my independent interpretation. At this point in time, upon repeat examination, patient states that he is doing well, not having increasing pain. While I am unsure as to the cause of his left shoulder pain I feel he can be discharged to follow-up with his primary care provider. His daughter wanted to ensure that there was no evidence of fracture or dislocation. He will follow-up with his primary care provider and continue gnjw-bxv-nefjnnr analgesics. They were told that he may need follow-up with orthopedics and have outpatient imaging. Return instructions to the emergency department were reviewed. Disposition is discharged home in stable condition. History & Record Review Discussion w/independent historian: Patient and Family Discharge Plan Triage Chief Complaint: Upper Extremity Injury ED Provider: Christopher Leija Dx/Rx/DC Orders Clinical Impression: Left shoulder pain, Pain and swelling of left shoulder Instructions: ED Shoulder Pain, Uncertain Cause Prescriptions: No Action ibuprofen 200 mg capsule 200 mg PO Q6H PRN (Reason: Pain) rosuvastatin 20 mg tablet 10 mg PO DAILY donepezil 5 mg tablet 5 mg PO DAILY Patient Comments: TAKE 1 TABLET (5 MG) BY MOUTH WITH EVENING MEAL. venlafaxine 75 MG tablet 75 mg PO BID Patient Comments: for drepression/anxiety albuterol sulfate 1 INHALER inhaler 1 - 2 puff inhalation Q6H PRN PRN (Reason: Wheezing) cyanocobalamin (vitamin B-12) 1,000 mcg tablet 1,000 mcg PO DAILY Patient Comments: TAKE 1 TABLET (1,000 MCG) BY MOUTH DAILY (WITH BREAKFAST). losartan 50 mg tablet 50 mg PO DAILY omeprazole 20 mg tablet,delayed release (DR/EC) 20 mg PO DAILY Qty: 56 0RF warfarin 4 mg tablet 4 mg PO DAILY Qty: 30 11RF Eliquis 5 mg tablet 5 mg PO BID Qty: 180 4RF metoprolol tartrate 50 mg tablet 50 mg PO BID Qty: 180 3RF Primary Care Provider: Anthony Reyes Referrals: Anthony Reyes MD [Primary Care Provider] - 1 Week if not improving Activity Restrictions/Additional Instructions: Continue your thqn-idm-biwdmjc medications as needed for pain. Follow-up with your primary care provider in 1 week if not improving. Return with new or worsening symptoms. Print Language: Syrian Disposition Disposition: Home, Self Care
--- NOTE | 2024-06-06 19:05 | RAD_ITS ---
EXAM: XR LEFT SHOULDER COMPLETE, 2 OR MORE VIEWS CLINICAL INDICATION: pain -- Left has pain, right more for comparison TECHNIQUE: Two or more views of the left shoulder. COMPARISON: No relevant prior studies available. FINDINGS: BONES/JOINTS: Unremarkable. No acute fracture. No subluxation. Normal alignment. Preservation of the joint space. No sclerotic or destructive changes observed. SOFT TISSUES: Unremarkable. No soft tissue swelling or gas. No radiopaque foreign body. TUBES, LINES AND DEVICES: Left-sided pacemaker battery pack. RAD/Shoulder min 2 Views IMPRESSION: No acute findings in the left shoulder. Electronically Signed: Wesley Fagan MD at 20:02 EST ,
--- NOTE | 2024-06-06 19:05 | RAD_ITS ---
EXAM: XR RIGHT SHOULDER COMPLETE, 2 OR MORE VIEWS CLINICAL INDICATION: PAIN TECHNIQUE: Two or more views of the right shoulder. COMPARISON: No relevant prior studies available. FINDINGS: BONES/JOINTS: Unremarkable. No acute fracture. No subluxation. Normal alignment. Preservation of the joint space. No sclerotic or destructive changes observed. SOFT TISSUES: Unremarkable. No soft tissue swelling or gas. No radiopaque foreign body. RAD/Shoulder min 2 Views IMPRESSION: Negative right shoulder x-rays. Electronically Signed: Wesley Fagan MD at 20:01 EST ,
== END 2024-06-06 20:30 | disposition home or self-care (01) ==
PROVIDERS: Emergency Provider Emergency Medicine; PCP Family Medicine; Visit Provider Emergency Medicine
DX: M25.512 Pain in left shoulder (principal); I48.0 Paroxysmal atrial fibrillation; I25.10 Atherosclerotic heart disease of native coronary artery without angina pectoris; E78.00 Pure hypercholesterolemia, unspecified; Z95.0 Presence of cardiac pacemaker; F32.A Depression, unspecified; F41.9 Anxiety disorder, unspecified; Z79.899 Other long term (current) drug therapy; Z79.01 Long term (current) use of anticoagulants; Z95.2 Presence of prosthetic heart valve; R22.32 Localized swelling, mass and lump, left upper limb
CPT/HCPCS: 73030; 99282

== ENCOUNTER → 2024-06-25 | Outpatient (CLI) | payer MEDICARE, SELFPAY ==
--- NOTE | 2024-06-25 10:49 | ART_ITS ---
Reason For Study: PAD Procedure A bilateral lower extremity continuous wave Doppler with analog waveform analysis,segmental pressures,and ankle brachial indexes without exercise. Left Segmental Pressures Left brachial= 139mmHg. Left posterior tibial artery = 166mmHg. Left dorsalis pedis artery = 161mmHg. Left digit = 87 mmHg. Right Segmental Pressures Right brachial= 133mmHg. Right posterior tibial artery = 174mmHg. Right dorsalis pedis artery = 163mmHg. Right digit = 94 mmHg. Indices The right ankle brachial index by the posterior tibial artery is 1.25. The right ankle brachial index by the dorsalis pedis is 1.17. The right digital-brachial index is 0.68. The left ankle brachial index by the posterior tibial artery is 1.19. The left ankle brachial index by the dorsalis pedis is 1.16. The left digital-brachial index is 0.63. VL/Lower Ext Art Exam w/o Exercis Interpretation Summary Right JUDY 1.25, normal. Doppler/PVR waveforms of the right leg normal at rest. TBI and digit waveforms diminished, pedal/digit disease vs spasm. Left JUDY 1.19, normal. Doppler/PVR waveforms of the left leg normal at rest. TB I and digit waveforms diminished, pedal/digit disease vs spasm. Ordering Physician: Jaciel Pelaez Referring Physician: Jaciel Pelaez Performed By: Maren Atkins RDCS/RVT
== END | disposition home or self-care (01) ==
PROVIDERS: PCP Family Medicine; Referring Provider Family Medicine; Visit Provider Family Medicine
DX: I73.9 Peripheral vascular disease, unspecified (principal)
CPT/HCPCS: 93923

== ENCOUNTER → 2024-07-23 | Outpatient (CLI) | payer MEDICARE, SELFPAY ==
--- NOTE | 2024-07-23 12:11 | STRESSREP_ITS ---
Stress Test Report Pharmacologic myocardial perfusion stress test. Indication: [82-year-old patient, with history of CAD, has history of a STEMI/inferior CO in January 2020, status post PCI and RCA-stent in January 2020 Presented with syncopal episode, cardiac markers were negative and CT chest showed no evidence of pulmonary medicine.] No symptoms of chest pain reported during this admission. This patient has multiple medical comorbidities, with hyperlipidemia, benign essential hypertension, history of recurrent deep vein thrombosis and a prior history of pulmonary embolism. Stress protocol: Resting EKG demonstrates. Normal sinus rhythm. With age indeterminant old inferior CO. 0.4 mg of regadenoson was infused per usual protocol followed by rapid intravenous saline flush injection continuous EKG monitoring was performed. The maximum heart rate attained was [] bpm which was []% of maximum predicted heart . Stress EKG showed[, no significant change from the resting EKG, with maximum heart rate of 107bpm. Arrhythmia: No arrhythmia demonstrated Symptoms: Patient had no symptoms of chest pain Blood pressure at rest: [132/62 blood pressure at the end of stress: 124/62] Myocardial perfusion protocol. [12 mCi ]of Technetium 99m Sestamibi was injected at rest. [ 0.4 mg ]of Regadenoson was infused per usual protocol peak infusion[34 mCi ]of Technetium 99m sestamibi was injected. Stress images were obtained stress and rest images were reconstructed and compared in the short axis vertical and horizontal long axis. Gated images were also obtained Perfusion SPECT analysis: Review of the images demonstrate normal uptake of sestamibi at rest, post stress images demonstrate similar uptake of sestamibi to the resting images, homogeneous tracer uptake With no evidence of reversible myocardial ischemia. Reduced tracer uptake in the inferior myocardium consistent with prior inferior CO. Gated SPECT analysis: The gated ejection fraction is [ 88 %]. Wall motion showed hyperdynamic left ventricle. Conclusion: Negative Lexiscan sestamibi myocardial perfusion study for reversible myocardial ischemia Hyperdynamic left ventricle. Patient has no symptoms to report, in particular no chest pain Patient will be evaluated further with event monitor as an outpatient. Yanick Ro MD,FACC,[facility]
--- NOTE | 2024-07-23 12:13 | STRESSREP ---
Stress Test Report Lexiscan myocardial perfusion stress test. Indication; 78-year-old patient with known history of calcific aortic valve stenosis Underwent a TAVR, permanent pacemaker, history of A-fib Patient has a prior cardiac catheterization with nonobstructive CAD. And has abnormal EKG with a left bundle branch block. Does not have any symptoms of chest pain no symptoms of shortness of breath. Stress protocol: Resting EKG demonstrates. Low bundle branch block 0.4 mg of regadenoson was infused per usual protocol followed by rapid intravenous saline flush injection continuous EKG monitoring was performed. The maximum heart rate attained was 71 bpm which was 49% of maximum predicted heart . Stress EKG showed[, no significant change from the resting EKG, with maximum heart rate of 71 bpm. Arrhythmia: No arrhythmia demonstrated Symptoms: Patient had no symptoms of chest pain Blood pressure at rest: 128/80 mmHg blood pressure at the end of stress: 128/88 mmHg Myocardial perfusion protocol. 14.1 mCi ]of Technetium 99m Sestamibi was injected at rest. [ 0.4 mg ]of Regadenoson was infused per usual protocol peak infusion 44.4 mCi ]of Technetium 99m sestamibi was injected. Stress images were obtained stress and rest images were reconstructed and compared in the short axis vertical and horizontal long axis. Gated images were also obtained Perfusion SPECT analysis: Review of the images demonstrate normal uptake of sestamibi at rest, post stress images demonstrate similar uptake of sestamibi to the resting images, homogeneous tracer uptake With no evidence of reversible myocardial ischemia. Gated SPECT analysis: The gated ejection fraction is 56%. Normal LV wall motion, with normal LV systolic function. Conclusion: Negative Lexiscan sestamibi myocardial perfusion study for reversible myocardial ischemia Normal LV systolic function Yanick Ro MD,FACC,[facility] transmission system operator
== END | disposition home or self-care (01) ==
PROVIDERS: PCP Family Medicine; Referring Provider Nurse Practitioner Family; Visit Provider Nurse Practitioner Family
DX: Z79.01 Long term (current) use of anticoagulants (principal); Z95.2 Presence of prosthetic heart valve; I25.10 Atherosclerotic heart disease of native coronary artery without angina pectoris; I44.7 Left bundle-branch block, unspecified; R07.9 Chest pain, unspecified
CPT/HCPCS: 78452; 93017; A9500; A4216; J2785

== ENCOUNTER 2024-08-12 21:40 | Observation (INO) | payer MEDICARE, SELFPAY ==
[2024-08-12] VITALS (9 sets, daily range): BP systolic 132–172; BP diastolic 59–107; PULSE 66–84; RESP 16–25; TEMP 36.6–36.7; O2SAT 95–100; BMI 31.9; BMI 33.3
--- NOTE | 2024-08-12 21:48 | CT_ITS ---
PROCEDURE: STROKE CTA HEAD AND NECK W/CON REASON FOR EXAM: NEURO DEFICIT, ACUTE, STROKE SUSPECTED TECHNIQUE: CTA HEAD AND NECK WITH IV CONTRAST AND 3-D CONTRAST: COMPARISON: None. FINDINGS: AORTIC ARCH The aortic arch is normal. There is a common trunk of the innominate and left common carotid arteries. The origins of the arch branch vessels are patent. EXTRACRANIAL CAROTIDS Mild atherosclerotic calcification of the bilateral bifurcations without hemodynamically significant stenosis. Otherwise, the common carotid, internal carotid and external carotid segments are widely patent throughout the neck. RIGHT ICA Maximum stenosis (NASCET): 0 % LEFT ICA Maximum stenosis (NASCET): 0 % SKULL BASE The petrous, cavernous and supraclinoid segments of the distal internal carotid arteries are patent with normal configuration. The ophthalmic arteries, posterior communicating artery and anterior choroidal artery origins are normal. INTRACRANIAL VASCULATURE Cerebral Arteries: Mild atherosclerotic calcification of the carotid siphons. Otherwise, the anterior, middle and posterior cerebral artery distributions are within normal limits. [place] of [place]: The A1 and P1 segments are patent. There is a patent anterior communicating artery with normal configuration. There are small patent posterior communicating arteries with normal configuration. Venous Drainage: Unremarkable. VERTEBROBASILAR SYSTEM The proximal subclavian arteries, both vertebral arteries and basilar artery are widely patent. The cerebellar arteries are within normal limits. NONVASCULAR There is no abnormal intracranial enhancement. The ventricles, cisterns, sulci and parenchymal attenuation are normal. Bone windows are unremarkable. CT/STROKE CTA Head AND Neck W/Con IMPRESSION: Scattered atherosclerotic calcification without hemodynamically significant dimas nosis of the anterior and posterior intracranial or extracranial circulation. One or more dose reduction techniques were used (e.g., Automated exposure contr ol, adjustment of the mA and/or kV according to patient size, use of iterative reconstruction technique). Reading Location: [facility]
--- NOTE | 2024-08-12 21:48 | EKG12_ITS ---
Test Reason : DYSRHYTHMIA Blood Pressure : */* mmHG Vent. Rate : 76 BPM Atrial Rate : 76 BPM P-R Int : 226 ms QRS Dur : 152 ms QT Int : 456 ms P-R-T Axes : 77 -55 100 degrees QTcB Int : 513 ms Atrial-sensed ventricular-paced rhythm with prolonged AV conduction Abnormal ECG Confirmed by MAHAD ALVA, CHRISTOS ([id number]), design editor GRACE OQUENDO ([id number]) on 08/16/2024 10:48:39 AM Referred By: Confirmed By: CHRISTOS TOBIN MD
--- NOTE | 2024-08-12 21:48 | CT_ITS ---
PROCEDURE: No change to previously provided findings and impression following review of 3-D reconstructed images. REASON FOR EXAM: NEURO DEFICIT, ACUTE, STROKE SUSPECTED CT images of the brain were acquired without intravenous contrast. Multiplanar reformats were acquired. COMPARISON: None available. FINDINGS: * ACUTE: No acute infarct or hemorrhage. No mass effect or herniation. * BRAIN PARENCHYMA: Patchy supratentorial hypodensity, nonspecific, but likely secondary to chronic microvascular ischemia. Moderate generalized volume loss with concordant ventricular enlargement. * VENTRICLES/EXTRA-AXIAL SPACES: No hydrocephalus or extra-axial fluid collections. * EXTRACRANIAL STRUCTURES: Visualized osseous structures are normal. Soft tissues are normal. [id number] paranasal sinus mucosal thickening. Trace bilateral mastoid effusions. CT/STROKE Brain/Head without Cont IMPRESSION: No acute intracranial abnormality; no acute infarct, intracranial hemorrhage or extra-axial collection. Chronic microvascular ischemia and involutional changes. IMPRESSION: One or more dose reduction techniques were used (e.g., Automated exposure contr ol, adjustment of the mA and/or kV according to patient size, use of iterative reconstruction technique). Reading Location: [facility]
--- NOTE | 2024-08-12 21:49 | ED.VIS.STROK ---
HPI History of Present Illness Chief Complaint: Stroke Alert Informant: patient and family Narrative Narrative: Walked into prehospital stroke alert in triage. Reported sudden double vision 7 PM and worsening unsteady gait. History of paroxysmal A-fib with pacemaker he is on Eliquis. Pressure to his head. No speech changes. He states double vision when he looks out of picture. No weakness. No stroke history. History of aortic valve repair. Per family he also takes a full dose aspirin [id number]. Prior similar symptoms: No PFSH PFSH Medical History Wears glasses MRSA infection Depression Anxiety Prediabetes Arthritis High cholesterol Heartburn Non-smoker History of echocardiogram History of stress test Cardiology follow-up encounter History of atrial fibrillation Presence of permanent cardiac pacemaker Second degree AV block, Mobitz type I Bradycardia BARRIOS (dyspnea on exertion) COVID-19 (05/30/21) Obstructive sleep apnea Paroxysmal atrial flutter (2011) Nonobstructive atherosclerosis of coronary artery Hemothorax (08/2011) Nonrheumatic mitral (valve) stenosis Paroxysmal atrial fibrillation (2011) Non-rheumatic aortic stenosis Atrial fibrillation and flutter Hyperlipidemia Left bundle branch block Syncope Home Medications ?Medication ?Instructions ?Recorded ?Last Taken ?Type venlafaxine 75 mg tablet 75 mg PO BID mood 11/30/15 06/30/23 History albuterol sulfate 90 mcg/actuation 1 - 2 puff inhalation Q6H PRN PRN 01/13/19 Unknown History aerosol inhaler Wheezing ibuprofen 200 mg capsule 200 mg PO Q6H PRN Pain 11/26/21 Unknown History rosuvastatin 20 mg tablet 10 mg PO DAILY 12/26/22 06/29/23 History losartan 50 mg tablet 50 mg PO DAILY 12/27/22 06/29/23 History donepezil 5 mg tablet 5 mg PO DAILY 04/28/23 06/29/23 History warfarin 4 mg tablet 4 mg PO DAILY #30 tabs 08/28/23 Unknown Rx metoprolol tartrate 50 mg tablet 50 mg PO BID #180 tabs 05/10/24 Unknown Rx omeprazole 20 mg tablet,delayed 40 mg PO DAILY PRN upset stomach 08/12/24 Unknown History release aspirin 81 mg chewable tablet 81 mg PO BREAKFAST 30 days #30 tabs 08/13/24 Unknown Rx Allergy/AdvReac Type Severity Reaction Status Date / Time No Known Allergies Allergy Verified 08/12/24 21:46 Family History Father CAD (coronary artery disease) Surgical History History of cardiac catheterization History of transcatheter aortic valve replacement (TAVR) (05/13/22) H/O laminectomy (12/11/21) History of nasal septoplasty History of loop recorder (08/21/11) History of electrophysiologic study (08/21/11) H/O hemorrhoidectomy excision lung nodule History of left heart catheterization (03/04/22) Social History Smoking Status: Never smoker alcohol intake: current alcohol intake frequency: holidays/special occasions only substance use type: does not use caffeine: Yes Type: carbonated beverages Number of servings: 1 and tea Number of servings: 1 ROS ROS ED Constitutional Constitutional ED: Denies chills, fever(s) or sweats Eyes Eyes: Reports diplopia ENT ENT ED: Denies sore throat Cardiovascular Cardiovascular: Denies chest pain, leg edema, palpitations or racing heartbeat Respiratory/Chest Respiratory/Chest: Denies cough, dyspnea or dyspnea on exertion Gastrointestinal Gastrointestinal: Denies abdominal pain, diarrhea, nausea or vomiting Genitourinary Genitourinary ED: Denies dysuria, hematuria or urinary frequency Musculoskeletal Musculoskeletal: Denies back pain, extremity pain or neck pain Integumentary Denies rash or wounds Neurologic Neurologic: Reports other Details: Unstable gait ; Denies headache(s), paresthesias or weakness EXAM Physical Exam Const Vital Signs: 08/12/24 21:41 08/12/24 21:41 08/12/24 21:41 Temperature 98 F 98 F Temperature Source Temporal Temporal Pulse Rate 77 77 75 Respiratory Rate 18 18 18 Blood Pressure 172/107 H 172/107 H Blood Pressure Mean 128 128 Pulse Ox 100 100 98 Oxygen Delivery Method Room Air Room Air 08/12/24 21:48 08/12/24 21:54 08/12/24 22:00 Temperature Temperature Source Pulse Rate 81 74 Respiratory Rate 18 16 Blood Pressure 145/81 H 138/77 H Blood Pressure Mean 102 97 Pulse Ox 97 98 Oxygen Delivery Method Room Air Room Air Room Air 08/12/24 22:20 08/12/24 22:30 08/12/24 22:30 Temperature Temperature Source Pulse Rate 73 73 72 Respiratory Rate 17 20 H 17 Blood Pressure 140/81 H 140/81 H Blood Pressure Mean 100 96 Pulse Ox 98 98 96 Oxygen Delivery Method Room Air 08/12/24 22:45 08/12/24 23:00 08/12/24 23:00 Temperature Temperature Source Pulse Rate 82 75 70 Respiratory Rate 25 H 20 H 20 H Blood Pressure 163/72 H 143/72 H Blood Pressure Mean 97 95 Pulse Ox 96 97 96 Oxygen Delivery Method Room Air 08/12/24 23:28 08/12/24 23:30 Temperature 98.0 F Temperature Source Pulse Rate 84 66 Respiratory Rate 20 H 22 H Blood Pressure 132/59 H 154/75 H Blood Pressure Mean 83 101 Pulse Ox 95 96 Oxygen Delivery Method Positive well nourished and well developed General Appearance ED: well developed and NAD HEENT Reports moist mucous membranes normocephalic and atraumatic Eyes PERRL and EOMs intact bilaterally Eyes Narrative: No cranial nerve palsy noted. General Eye ED: Yes normal appearance of both eyes Neck full ROM Chest Wall Chest: Negative for tenderness Resp normal respiratory effort and normal air movement Effort and Inspection: symmetric chest movement; Negative for respiratory distress Cardio regular rate, regular rhythm and no murmurs Peripheral Pulses: pulses 2+ throughout GI normal to inspection, nondistended, normoactive bowel sounds and non-tender Palpation: Negative for guarding or rebound tenderness present Extremity normal to inspection General Extremety ED: Negative for edema or tenderness General Extremity: Negative for edema Neuro oriented x3 and no sensory deficits noted Sensorium / Orientation: awake and alert Skin no rashes or lesions noted and no wounds NIHSS NIHSS Initial: 1a Level of Consciousness: 0 1b LOC Questions (Score 2 if aphasic/stupor): 0 1c LOC Commands (Only score 1st attempt): 0 2 Best Gaze (If aphasic, use reflexive mvmts.): 0 3 Visual: 0 4 Facial Palsy: 0 5 Motor Arm Right (UN = amputation/fusion): 0 5 Motor Arm Left: 0 6 Motor Leg Right: 0 6 Motor Leg Left: 0 7 Limb ataxia (Only + if out of proportion): 0 8 Sensory (Aphasia/stupor=0 or 1, coma=2): 1 9 Best Language: 0 10 Dysarthria (mute, coma=2, intubated=UN): 0 11 Extinction and Inattention (only scored if +): 0 Total Score: 1 MDM MDM MDM Narrative Medical decision making narrative: Interventions / MDM: Differential diagnosis: Diplopia, unstable gait, history of pacemaker, paroxysmal A-fib, chronic anticoagulation Diagnosis considered but do not suspect: N/A My EKG interpretation: Atrial sensed ventricular paced rate of 76. No acute findings. Imaging independently reviewed and interpreted by myself: CT brain: No acute process. CT angiogram: No acute process. 1 view chest x-ray: No acute process. External documents reviewed: N/A Test considered but not ordered:N/A ED course: Exam patient paresthesia slight left side arm. No cranial nerve palsy. Reports diplopia which is looking straight. Reported increasing unsteady gait. Stroke protocol initiated. However he is on Eliquis therefore not a TNK candidate. I spoke with stroke neurologist. His dry CT negative. With his history less likely LVO. Discussed he is on Eliquis. He has a pacemaker. We discussed to check if his pacemaker is MRI compatible think an MRI in the hospital. If not MRI compatible repeat CT in 24 to 48 hours. 2230: Interim patient did have a card and checked in the system with cardiology, his pacemaker is MRI compatible, device Assurity MRI 2272. Labs stable creatinine 0.89. Troponin 25. EKG paced rhythm. No chest pains. 2259: Reevaluation only mild diplopia. Paresthesia improved. NIH of 0. Further discussion with patient and daughter about his medications, he now stated he is not taking his Eliquis for at least a year as he ran out of his medication. This was reported to his doctor who was transitioning over to warfarin however he states only took 1 dose and stopped it. Patient's symptoms resolving, will discuss with hospitalist for plan admission. 2340: I spoke with hospitalist Dr. Juarez for admission to PCU. Re-evaluation: stable Disposition discussed with patient/family/significant other: Patient and family Case discussed with consulting clinician: Telestroke neurology, hospitalist This note was generated with Orbsteration software. It may contain incorrect words, spelling, and punctuation that were not noted in checking the note before signing. Lab Data Attestation: I reviewed the patient's lab results. Labs: Laboratory Results - last 24 hr 08/12/24 08/12/24 21:45 21:50 WBC 9.0 RBC 4.30 L Hgb 14.0 Hct 41.9 MCV 97.4 H MCH 32.6 H MCHC 33.4 RDW Std Deviation 47.4 H RDW Coeff of Heather 13.2 Plt Count 237 MPV 9.2 Immature Gran % (Auto) 0.200 Neut % (Auto) 53.9 Lymph % (Auto) 33.8 [place] % (Auto) 11.1 H Eos % (Auto) 0.6 Baso % (Auto) 0.4 Absolute Neuts (auto) 4.8 Absolute Lymphs (auto) 3.04 Nucleated RBC % 0 PT 13.8 INR 1.0 APTT 28.1 Sodium 140 Potassium 4.1 Chloride 101 Carbon Dioxide 27.4 Anion Gap 11 BUN 13 Creatinine 0.89 Estim Creat Clear Calc 86.67 Est GFR (MDRD) Non-Af 89 BUN/Creatinine Ratio 15.1 Glucose 115 H Calcium 9.0 Troponin T High Sens 25 H POC Glucose 139 H Radiography Diagnostic Testing: Clinical Impression(s) from Imaging Studies Brain CT 08/12/24 21:48 IMPRESSION: No acute intracranial abnormality; no acute infarct, intracranial hemorrhage or extra-axial collection. Chronic microvascular ischemia and involutional changes. IMPRESSION: One or more dose reduction techniques were used (e.g., Automated exposure control, adjustment of the mA and/or kV according to patient size, use of iterative reconstruction technique). Reading Location: [facility] Head/Neck CTA 08/12/24 21:48 IMPRESSION: Scattered atherosclerotic calcification without hemodynamically significant stenosis of the anterior and posterior intracranial or extracranial circulation. One or more dose reduction techniques were used (e.g., Automated exposure control, adjustment of the mA and/or kV according to patient size, use of iterative reconstruction technique). Reading Location: [facility] Chest X-Ray 08/12/24 22:35 IMPRESSION: No acute cardiopulmonary process. Reading Location: [facility] Stroke Documentation Questions Stroke Team Activated: Yes Reviewed Inclusion/Exclusion criteria: Yes Was Patient considered for Endovascular Intervention?: No-CTA negative, determined not to be an endovascular candidate IV Thrombolytic Administered: No (Reportedly on chronic Eliquis, not recommended by telestroke neurologist) Critical Care Time Critical Care Time: Yes Critical care time (excluding procedures): 30-74 minutes, Discussing w/Patient &/or Family/Inverted Block Operator, Discussing w/Consultants, Arranging Admission or Transfer, Performing Direct Patient Care at Bedside and - (31 minutes) Discharge Plan Dx/Rx/DC Orders Clinical Impression: Presence of permanent cardiac pacemaker, Diplopia, Unsteady gait Disposition Disposition: Acute Care Hospital [facility] Discharge Date/Time: 08/13/24 00:26
[2024-08-12 21:57] LABS: Absolute Lymphocyte Count 3.04 X10^3/uL (0.83-4.51); Absolute Neutrophil Count 4.8 X10^3/uL (2.0-7.7); Basophil# 0.04 X10^3/uL; Basophil% 0.4 % (0-1); Eosinophil# 0.05 X10^3/uL; Eosinophils% 0.6 % (0-5); Hematocrit 41.9 % (40-54); Lymphocyte # 3.04 X10^3/ul (0.83-4.51); Lymphocyte % 33.8 % (19-41); Mean Corp Hgb Conc 33.4 g/dL (32-36); Mean Corpuscular Hgb 32.6 pg (27.0-32.0); Mean Corpuscular Volume 97.4 fL (80-94); Mean Platelet Vol. 9.2 fl (6.2-12.0); Monocyte% 11.1 % (0-10); NRBC Flagged by Analyzer 0 % (0-5); Neutrophil # 4.84 X10^3/uL (2.7-7.7); Neutrophil % 53.9 % (47-70); Platelet Count 237 K/mm3 (150-450); RBC Distribution Width CV 13.2 % (11.6-14.6); RBC Distribution Width SD 47.4 fl (35.1-43.9)
[2024-08-12 22:06] LABS: Bedside Glucose 139 mg/dL (74-106)
[2024-08-12 22:10] LABS: Prothrombin Time (Protime)PT. 13.8 SECONDS (11.7-14.9)
[2024-08-12 22:15] LABS: Partial Thromboplast Time 28.1 Seconds (24.1-36.2)
[2024-08-12 22:16] LABS: Anion Gap 11 (5-15); BUN 13 mg/dL (4-19); BUN/Creat Ratio 15.1 RATIO (10-20); Carbon Dioxide 27.4 mmol/L (21.0-32.0); Chloride 101 mmol/L (98-108); Creatinine, Serum 0.89 mg/dL (0.70-1.20); EST Glomerular Filtration Rate 89 (>60); Estimated Creatinine Clearance 86.67 ml/min (50-250); Glucose 115 mg/dL (70-99); Potassium 4.1 mmol/L (3.3-5.1); Sodium Level 140 mmol/L (133-145); Troponin T High Sensitivity 25 ng/L (<=22)
--- NOTE | 2024-08-12 22:35 | RAD_ITS ---
PROCEDURE: CHEST 1 VIEW 08/12/2024 REASON FOR EXAM: NEURO DEFICIT, ACUTE, STROKE SUSPECTED TECHNIQUE: Frontal view of the chest. COMPARISON: 05/22/2022 FINDINGS: An ICD is present. Heart size is mildly enlarged. No focal consolidation. No pneumothorax. No pleural effusion. RAD/Chest 1 View IMPRESSION: No acute cardiopulmonary process. [facility]
--- NOTE | 2024-08-12 23:39 | PCM.HP.STD ---
[facility] - [facility] Date of Admission: 08/13/24 Date of Service: 08/12/24 Chief Complaint: Double Vision and Unsteady Gait. [facility] Narrative RAVIN JONES, is a 78 M with a past medical history of essential hypertension; on losartan and metoprolol, hyperlipidemia; on rosuvastatin, obesity; BMI of 32 this admission, CLAIRE; on CPAP, paroxysmal atrial fibrillation; previously prescribed apixaban which he has not taken for the past year, history of dementia; on donepezil, CAD, history of MRI-compatible PPM, history of nonrheumatic aortic stenosis; s/p TAVR with 26 mm RICK S3 ultra valve (2021), history of nonrheumatic mitral valve stenosis, history of LBBB, history of second-degree AV block; Mobitz type I, history of syncope, history of hemothorax, history of asthma; on as needed albuterol inhaler, history of MRSA infection on abdomen and back (~2019), history of depression with anxiety; on venlafaxine, history of lung nodule; s/p excision, history of nasal septoplasty, history of hemorrhoidectomy, history of loop recorder (2011), GERD; on omeprazole and OA; with history of laminectomy (2021) on as needed ibuprofen every 6 hours who presents to [facility] ER complaining of double vision and unsteady gait. Mr. Jones reports his symptoms began with the abrupt-onset of double vision at 7 PM with a corresponding worsening unsteady gait. He also admits to an associated pressure sensation in his head but he denies changes in his speech or other focal neurologic weakness. He states his double vision is most pronounced when he looks at something directly. He denies a history of CVA or similar previous episodes. His family reported to the ER physician that he takes full dose ECASA OTC. There is no report of fever, chills, runny nose, sore throat, ear pain, chest pain, palpitations, heart racing, shortness of breath, cough, abdominal pain, nausea, vomiting, diarrhea, dysuria, hematuria, back pain or focal motor neurologic deficits. In the ER a 'Stroke Alert' was called shortly after his arrival with CTA of the head and neck revealing scattered atherosclerotic calcification without hemodynamically significant stenosis of the anterior and posterior intracranial or extracranial circulation with his head CT without contrast revealing no acute intracranial abnormality; no acute infarct, intracranial hemorrhage or extra-axial collection with chronic microvascular ischemia and involutional changes. He was then admitted to the PCU under observation status for ongoing care for a stay that is expected to be less than 2 midnights. [facility] Medical History Wears glasses MRSA infection Depression Anxiety Prediabetes Arthritis High cholesterol Heartburn Non-smoker History of echocardiogram History of stress test Cardiology follow-up encounter History of atrial fibrillation Presence of permanent cardiac pacemaker Second degree AV block, Mobitz type I Bradycardia BARRIOS (dyspnea on exertion) COVID-19 (05/30/21) Obstructive sleep apnea Paroxysmal atrial flutter (2011) Nonobstructive atherosclerosis of coronary artery Hemothorax (08/2011) Nonrheumatic mitral (valve) stenosis Paroxysmal atrial fibrillation (2011) Non-rheumatic aortic stenosis Atrial fibrillation and flutter Hyperlipidemia Left bundle branch block Syncope Home Medications ?Medication ?Instructions ?Recorded ?Last Taken ?Type venlafaxine 75 mg tablet 75 mg PO BID mood 11/30/15 06/30/23 History albuterol sulfate 90 mcg/actuation 1 - 2 puff inhalation Q6H PRN PRN 01/13/19 Unknown History aerosol inhaler Wheezing ibuprofen 200 mg capsule 200 mg PO Q6H PRN Pain 11/26/21 Unknown History rosuvastatin 20 mg tablet 10 mg PO DAILY 12/26/22 06/29/23 History losartan 50 mg tablet 50 mg PO DAILY 12/27/22 06/29/23 History donepezil 5 mg tablet 5 mg PO DAILY 04/28/23 06/29/23 History warfarin 4 mg tablet 4 mg PO DAILY #30 tabs 08/28/23 Unknown Rx Held on 08/12/24. Instructions: didn'tagree with him,only took one metoprolol tartrate 50 mg tablet 50 mg PO BID #180 tabs 05/10/24 Unknown Rx omeprazole 20 mg tablet,delayed 40 mg PO DAILY PRN upset stomach 08/12/24 Unknown History release Allergy/AdvReac Type Severity Reaction Status Date / Time No Known Allergies Allergy Verified 08/12/24 21:46 Family History Father CAD (coronary artery disease) Surgical History History of cardiac catheterization History of transcatheter aortic valve replacement (TAVR) (05/13/22) H/O laminectomy (12/11/21) History of nasal septoplasty History of loop recorder (08/21/11) History of electrophysiologic study (08/21/11) H/O hemorrhoidectomy excision lung nodule History of left heart catheterization (03/04/22) Social History Smoking Status: Never smoker alcohol intake: current alcohol intake frequency: holidays/special occasions only substance use type: does not use caffeine: Yes Type: carbonated beverages Number of servings: 1 and tea Number of servings: 1 ROS ROS Narrative Review of Systems: Constitutional: Patient denies fever or chills. Eyes: Patient admits to double vision but he denies discharge from eyes. ENT: Patient denies runny nose, sore throat or ear pain. Resp: Patient denies shortness of breath or cough. CV: Patient denies chest pain, palpitations, heart racing or lower extremity edema. GI: Patient denies abdominal pain, nausea, vomiting, diarrhea or constipation. : Patient denies dysuria, hematuria or urinary frequency. MSK: Patient denies arthralgias or myalgias. Skin: Patient denies rash, abscess, wounds or jaundice. Psych: Patient denies symptoms of uncontrolled depression or anxiety. Neuro: Patient admits to double vision and unsteady gait with a pressure sensation in his head as per HPI. He denies paresthesias. Allergy: Patient denies lip swelling, tongue swelling or urticaria. Hematology: Patient denies easy bleeding or easy bruisability. Endocrinology: Patient denies polyuria, polydipsia or polyphagia. 14 point ROS otherwise negative except for positives noted above in HPI. Vital Signs Vital Signs Vital Signs: 08/12/24 21:41 08/12/24 21:41 08/12/24 21:41 Temperature 98 F 98 F Temperature Source Temporal Temporal Pulse Rate 77 77 75 Respiratory Rate 18 18 18 Blood Pressure 172/107 H 172/107 H Blood Pressure Mean 128 128 Pulse Ox 100 100 98 Oxygen Delivery Method Room Air Room Air 08/12/24 21:48 08/12/24 21:54 08/12/24 22:00 Temperature Temperature Source Pulse Rate 81 74 Respiratory Rate 18 16 Blood Pressure 145/81 H 138/77 H Blood Pressure Mean 102 97 Pulse Ox 97 98 Oxygen Delivery Method Room Air Room Air Room Air 08/12/24 22:20 08/12/24 22:30 08/12/24 22:30 Temperature Temperature Source Pulse Rate 73 73 72 Respiratory Rate 17 20 H 17 Blood Pressure 140/81 H 140/81 H Blood Pressure Mean 100 96 Pulse Ox 98 98 96 Oxygen Delivery Method Room Air 08/12/24 22:45 08/12/24 23:00 08/12/24 23:00 Temperature Temperature Source Pulse Rate 82 75 70 Respiratory Rate 25 H 20 H 20 H Blood Pressure 163/72 H 143/72 H Blood Pressure Mean 97 95 Pulse Ox 96 97 96 Oxygen Delivery Method Room Air 08/12/24 23:28 08/12/24 23:30 Temperature 98.0 F Temperature Source Pulse Rate 84 66 Respiratory Rate 20 H 22 H Blood Pressure 132/59 H 154/75 H Blood Pressure Mean 83 101 Pulse Ox 95 96 Oxygen Delivery Method Weight Weight: 229 lb 4.492 oz Body Mass Index (BMI) 31.9 Physical Exam Const alert, oriented x3 and no apparent distress Constitutional Narrative: Obese. General Appearance: cooperative HEENT normocephalic, head/scalp atraumatic, hearing grossly normal bilaterally and moist oral mucous membranes Eyes PERRL, EOMs intact bilaterally and conjunctivae normal Eyes Narrative: No cranial nerve palsy noted. Neck no lymphadenopathy, supple and no JVD Resp normal respiratory effort, no retractions, no use of accessory muscles and clear to auscultation bilaterally Cardio regular rate and regular rhythm GI normal to inspection, nondistended, normoactive bowel sounds, soft to palpation, non-tender and non-distended GI Narrative: Obese. Extremity normal to inspection, full ROM and no clubbing, cyanosis or edema Skin Skin Narrative: Patient has no evidence of rash, abscess, wounds or jaundice. Neuro oriented x3, CN's II-XII intact bilaterally, moves all extremities and no focal motor deficits Neuro Narrative: Patient noted to have mild left upper extremity paresthesia and diplopia made worse when looking straight in addition to unsteady gait. Sensorium / Orientation: awake, alert, oriented to person, oriented to place and oriented to time Speech: speech normal Psych affect normal Results Medical Records Data Attestation: I reviewed the patient's medical records Lab / Micro Data Attestation: I reviewed the patient's lab results. 08/12/24 21:50 08/12/24 21:50 Labs: Laboratory Results - last 24 hr 08/12/24 21:45: POC Glucose 139 H 08/12/24 21:50: WBC 9.0, RBC 4.30 L, Hgb 14.0, Hct 41.9, MCV 97.4 H, MCH 32.6 H, MCHC 33.4, RDW Std Deviation 47.4 H, RDW Coeff of Heather 13.2, Plt Count 237, MPV 9.2, Immature Gran % (Auto) 0.200, Neut % (Auto) 53.9, Lymph % (Auto) 33.8, [place] % (Auto) 11.1 H, Eos % (Auto) 0.6, Baso % (Auto) 0.4, Absolute Neuts (auto) 4.8, Absolute Lymphs (auto) 3.04, Nucleated RBC % 0, PT 13.8, INR 1.0, APTT 28.1, Sodium 140, Potassium 4.1, Chloride 101, Carbon Dioxide 27.4, Anion Gap 11, BUN 13, Creatinine 0.89, Estim Creat Clear Calc 86.67, Est GFR (MDRD) Non-Af 89, BUN/Creatinine Ratio 15.1, Glucose 115 H, Calcium 9.0, Troponin T High Sens 25 H Imaging Radiology Impression Brain CT 08/12/24 21:48 IMPRESSION: No acute intracranial abnormality; no acute infarct, intracranial hemorrhage or extra-axial collection. Chronic microvascular ischemia and involutional changes. IMPRESSION: One or more dose reduction techniques were used (e.g., Automated exposure control, adjustment of the mA and/or kV according to patient size, use of iterative reconstruction technique). Reading Location: [facility] Head/Neck CTA 08/12/24 21:48 IMPRESSION: Scattered atherosclerotic calcification without hemodynamically significant stenosis of the anterior and posterior intracranial or extracranial circulation. One or more dose reduction techniques were used (e.g., Automated exposure control, adjustment of the mA and/or kV according to patient size, use of iterative reconstruction technique). Reading [facility] Chest X-Ray 08/12/24 22:35 IMPRESSION: No acute cardiopulmonary process. Reading Location: [facility] Assessment & Plan Assessment/Plan (1) CVA (cerebral vascular accident): QUALIFIERS: CVA mechanism: unspecified Qualified Code(s): I63.9 - Cerebral infarction, unspecified (2) Diplopia: (3) Unsteady gait: (4) Paroxysmal atrial fibrillation: (5) Medical non-compliance: (6) Dementia: QUALIFIERS: Dementia behavioral or psychological symptom: without behavioral, psychotic, or mood disturbance or anxiety Dementia severity: unspecified severity Dementia type: unspecified type Qualified Code(s): F03.90 - Unspecified dementia, unspecified severity, without behavioral disturbance, psychotic disturbance, mood disturbance, and anxiety (7) Obesity (BMI 30.0-34.9): (8) Essential hypertension: (9) Presence of permanent cardiac pacemaker: (10) Hyperlipidemia: QUALIFIERS: Hyperlipidemia type: unspecified Qualified Code(s): E78.5 - Hyperlipidemia, unspecified (11) History of transcatheter aortic valve replacement (TAVR): PLAN: Plan 1. CVA; with abrupt-onset of diplopia, unsteady gait and mild LUE paresthesia noted on exam that has persisted since admission - Admit to PCU under observation status. Continue BASA and statin. Check MRI of the brain without contrast to evaluate for CVA. Check echocardiogram to evaluate LVEF. Check carotid Doppler to evaluate for stenosis that may not have been evident on CTA. Check lipid profile, B12, folic acid, JUVENTINO and UDS to evaluate for potentially reversible causes of confusion and neurologic dysfunction. Finally, [facility] teleneurology consultation obtained in the ER is greatly appreciated. 2. Paroxysmal atrial fibrillation; previously prescribed apixaban which he has not taken for the past year because it was too expensive likely triggering #1 - Patient medically noncompliant with apixaban leading to #1. Both the patient and daughter will be educated on the need to take his medications as prescribed to minimize the risk of similar episodes in the future. Patient currently in NSR. 3. Mild Dementia; on donepezil complicating #1 & #2 - Maintain donepezil as previous. 4. Obesity; with BMI of 32 this admission with CLAIRE; on CPAP adding to the burden of disease outlined from #1 - #3 - Weight loss will be recommended. Check TSH. Resume nocturnal CPAP. This complicates his case and may hamper recovery. 5. Essential Hypertension; on losartan and metoprolol - Hold scheduled antihypertensives to allow for 'permissive hypertension' until CVA definitively ruled out on MRI. 6. History of arrhythmia; s/p MRI-compatible PPM - Noted. 7. Hyperlipidemia; on rosuvastatin - Resume statin and check Lipid Profile. 8. CAD - Noted. 9. History of nonrheumatic aortic stenosis; s/p TAVR with 26 mm RICK S3 ultra valve (2021) - Echocardiogram pending this admission for #1. 10. History of nonrheumatic mitral valve stenosis - Echo pending to reassess status. 11. History of LBBB - Noted. 12. History of second-degree AV block; Mobitz type I - Noted. 13. History of syncope - Noted. 14. History of hemothorax - Noted with negative CXR this admission. 15. History of asthma; on as needed albuterol inhaler - Stable with no evidence of acute flare at this time. Maintain prn albuterol. 16. History of MRSA infection on abdomen and back (~2019) - Noted. 17. History of depression with anxiety; on venlafaxine - Continue current therapy. 18. History of lung nodule; s/p excision - Noted with patient denying a history of tobacco abuse. 19. History of nasal septoplasty - Noted. 20. History of hemorrhoidectomy - Noted for the sake of completeness. 21. History of loop recorder (2011) - Noted. 22. GERD; on omeprazole - Resume PPI. 23. OA; with history of laminectomy (2021) on as needed ibuprofen every 6 hours - Hold NSAID's in light of #1. Give acetaminophen prn pain or fever. 24. DVT prophylaxis - Lovenox 40 mg sq daily plus SCD's. Total time: Approximately (but not less than) 85 minutes. Charges/Coding Visit Charges OBSV E&M: 46723 Observ/hosp same date L3
[2024-08-13] VITALS (10 sets, daily range): BP systolic 124–149; BP diastolic 39–86; PULSE 60–86; RESP 16–20; TEMP 36.7–36.8; O2SAT 92–98; BMI 33.3
--- NOTE | 2024-08-13 00:21 | CDU_ITS ---
Reason For Study Reason For Study: EVAL FOR STENOSIS Rt. Velocities/BP Lt. Velocities/BP Prox CCA 73.3/10.0 cm/sec. Prox CCA 152.7/8.4 cm/sec. Mid CCA 75.2/9.1 cm/sec. Mid CCA 136.3/15.1 cm/sec. Dist CCA 107.6/9.3 cm/sec. Dist CCA 118.0/8.4 cm/sec. Prox ICA 125.6/16.3 cm/sec. Prox ICA 110.7/17.5 cm/sec. Mid ICA 123.2/20.0 cm/sec. Mid ICA 128.9/17.5 cm/sec. Dist ICA 117.0/18.8 cm/sec. Dist ICA 110.7/15.7 cm/sec. Rt. ICA/CCA = 125.6/75.2=1.7. Lt. ICA/CCA = 128.9/136.3=0.9. Prox ECA 130.5/0.0 cm/sec. Prox ECA 105.2/4.7 cm/sec. Rt. Vert. 54.0/6.9 cm/sec. Lt. Vert. 31.7/6.5 cm/sec. Right Extracranial There is no significant atherosclerotic plaque noted in the right common carotid artery. There is intimal thickening but no significant atherosclerotic plaque noted in the right internal carotid artery. There is heterogeneous, irregular atherosclerotic plaque noted in the right external carotid artery. Antegrade flow is noted in the right vertebral artery. Left Extracranial There is heterogeneous, irregular atherosclerotic plaque noted in the left common carotid artery. There is heterogeneous, irregular atherosclerotic plaque noted in the left internal carotid artery. The left internal carotid artery is very tortuous. There is intimal thickening but no significant atherosclerotic plaque noted in the left external carotid artery. Antegrade flow is noted in the left vertebral artery. Procedure Carotid Duplex 00912. This is a Carotid Duplex examination using B-mode, color flow and specral Doppler. The study was technically difficult. PT unable to stay awake for exam & snoring. Exam performed portable in patient room. VL/Carotid Duplex Ultrasound Interpretation Summary No significant atherosclerotic plaque or stenosis noted in the right internal c arotid artery. Mild (<50%) stenosis left extracranial internal carotid. Flow within the vertebral arteries is antegrade bilaterally. Ordering Physician: Davon Yousif Referring Physician: Anthony Reyes Performed By: Daisy Quintanilla RDCS, RVT
--- NOTE | 2024-08-13 00:21 | MRI_ITS ---
PROCEDURE: BRAIN WITHOUT CONTRAST (MRIBR), 08/13/2024 REASON FOR EXAM: DIPLOPIA AND UNSTEADY GAIT; EVAL FOR CVA. COMPARISON: 08/12/2024. TECHNIQUE: Multisequence multiplanar MRI brain was performed without intravenous contrast. Contrast: None. FINDINGS: Note that the exam is incomplete as the patient was reportedly terminated prematurely due to claustrophobia. Gradient/T2*, coronal T2, and axial T1 sequences were not performed. Cerebrum: No acute infarct or mass identified. Limited sensitivity for intracranial blood products in the absence of T2*/gradient sequences, with none definitely identified. Minimal nonspecific supratentorial white matter abnormality, nonspecific but compatible with chronic microvascular ischemic changes. Moderate cerebral volume loss. Cerebellum: Unremarkable. Brainstem: Unremarkable. Ventricles/extra-axial spaces: Ventriculomegaly is proportionate to the degree of volume loss. Major flow voids: Better evaluated previously. Paranasal sinuses: Redemonstrated moderate mucosal thickening in the predominantly inferior left maxillary sinus. Trace mucosal thickening in the ethmoid air cells. Trace mastoid effusions.. Scalp/calvarium: Grossly unremarkable. Orbits: Grossly unremarkable within limits of nondedicated technique. Other: Degenerative changes in the upper cervical spine at C1-C2. MRI/Brain without Contrast IMPRESSION: 1. Incomplete exam due to claustrophobia. 2. No definite evidence of an acute intracranial process. Sequences obtained a re sufficient to exclude acute infarct. 3. Left maxillary predominant paranasal sinus disease. Trace mastoid effusions . 4. Additional description as above. Reading Location: [id number]
--- NOTE | 2024-08-13 00:21 | ECHOCS_ITS ---
Reason For Study Reason For Study: TIA/Stroke Procedure This was a 2D Doppler, Color Flow transthoracic echocardiogram. Contrast injection was performed. Exam performed portable in patient room. Left Ventricle Normal LV size. The estimated ejection fraction is 65 %. No evidence for diastolic dysfunction. No regional wall motion abnormalities noted. Right Ventricle Normal RV size. Normal systolic function. Atria The left and right atria are normal. No doppler evidence for ASD. Mitral Valve There is mild mitral annular calcification. There is no mitral valve stenosis. No mitral valve insufficiency. Tricuspid Valve There is no tricuspid stenosis. Unable to estimate RV systolic pressure due to inadequate jet, pulmonary artery pressure probably normal. Aortic Valve There is no aortic stenosis. No aortic valve insufficiency. Stable appearing bioprosthetic aortic valve apparatus. Pulmonic Valve There is no pulmonic valvular stenosis. No pulmonic valve insufficiency. Great Vessels Mildly dilated aortic root. Pericardium/Pleural No pericardial effusion. Medication Diluted definity 1ml given slow IV push to enhance endocardial definition. MMode/2D Measurements & Calculations LVIDd: 4.2 cm IVSd: 1.7 cm LVOT diam: 2.0 cm LVIDs: 2.5 cm LVPWd: 1.7 cm RVDd: 4.0 cm FS: 40.2 % LVOT area: 3.2 cm2 Ao root diam: 4.1 cm LAV(MOD-bp): 42.6 ml LA A4 area: 15.3 cm2 LAV(MOD-bp) Indexed: 18.7 ml/m2 LAV(MOD-sp2): 50.5 ml LAV(MOD-sp4): 35.5 ml LA dimension(2D): 3.9 cm TAPSE: 2.7 cm RA A4 area: 10.5 cm2 Time Measurements MV dec time: 0.32 sec Doppler Measurements & Calculations MV E max jose juan: 71.5 cm/sec Lat Peak E' Jose Juan: 6.9 cm/sec Med Peak E' Jose Juan: 5.5 cm/sec MV A max jose juan: 118.8 cm/sec E/E' lat: 10.3 E/E' med: 12.9 MV E/A: 0.60 MV dec slope: 225.6 cm/sec2 Ao V2 max: 294.0 cm/sec LV V1 max: 150.5 cm/sec Ao max P.6 mmHg LV V1 max P.1 mmHg Ao V2 mean: 229.5 cm/sec LV V1 mean P.8 mmHg Ao mean P.3 mmHg LV V1 mean: 128.1 cm/sec Ao V2 VTI: 59.0 cm LV V1 VTI: 35.1 cm AV (velocity ratio): 0.59 EDUAR(I,D): 1.9 cm2 EDUAR(V,D): 1.6 cm2 SV(LVOT): 112.9 ml PA V2 max: 100.0 cm/sec TR max jose juan: 272.1 cm/sec TR max P.6 mmHg ECHO/Echo Complete W/ Contrast Interpretation Summary The estimated ejection fraction is 65 %. No evidence for diastolic dysfunction. Mildly dilated aortic root. Ordering Physician: Davon Yousif Referring Physician: Anthony Reyes Performed By: Maren Atkins, ELIJAH, RVT
[2024-08-13 00:28] LABS: Troponin T High Sens 2 HR 24 ng/L (<=22)
[2024-08-13] MEDS: 0.9% Normal Saline (1000mL) 1,000 ML 50 ML IV (01:21)
[2024-08-13] MEDS: Aspirin 81 MG TAB.CHEW PO (01:22)
[2024-08-13 01:41] LABS: Vitamin B12 266 pg/mL (180-914)
[2024-08-13 01:57] LABS: Alcohol, Blood (Medical)-Serum < 10.1 mg/dL (<=10.0)
[2024-08-13 03:40] LABS: Troponin T High Sens 4 HR 25 ng/L (<=22)
[2024-08-13 03:42] LABS: Hemoglobin A1c 6.6 % (<=5.6)
[2024-08-13 04:01] LABS: Cholesterol 132 mg/dL (<=200); High Density Lipoprotein 43 mg/dL; Low Density Lipoprotein Calc. 73 mg/dL; Triglycerides 80 mg/dL; Very Low Density Lipoprotein 16 mg/dL (5-40); cholesterol:hdl ratio screen 3.07
[2024-08-13 04:12] LABS: FOLATES,SERUM (FOLIC ACID) 7.75 ng/mL (4.60-34.80)
[2024-08-13] MEDS: Enoxaparin 40 MG/0.4 ML Syringe SC (05:08)
[2024-08-13] MEDS: Ensure Plus High Protein 120 ML LIQUID PO (08:41)
[2024-08-13] MEDS: Donepezil HCl 5 MG Tablet PO (08:41)
[2024-08-13] MEDS: Acetaminophen 325 MG Tablet 650 MG PO (08:41)
[2024-08-13] MEDS: Venlafaxine HCl 75 MG Tablet PO (08:48)
--- NOTE | 2024-08-13 11:43 | STROKE.CONS ---
Assessment and Plan: Stroke Assessment/Plan RAVIN JONES is a 78 M with a history of HTN, HLD, obesityon CPAP, pAfib not on Ac, CAD, PPM, with TAVR who presents for evaluation of diplopia ad unsteady gait. Neurological examination shows intact examination ? skew . Neuroimaging shows CTA: No major stenosis or LVO, CT head negative. HbA1C: 6.6, LDL: 73. Suspect ischemic stroke of posterior fossa Plan MRI brain, ECHO Continue ASA. On exterminator will need AC based on compliance cost. Once AC is resumed from stroke stand point needs only ASA HLD: Continue statin. target LDL <70 HTN: Permissive hypertension acutely and exterminator will need it under control. A Fib: Will need AC on exterminator. PT, OT evaluation Stroke education Thanks for consult. Spent 80 min in evaluation, planning and management. HPI Consult Data Date of Consult: 08/13/24 HPI Narrative HPI Narrative: RAVIN JONES, is a 78 M with a past medical history of essential hypertension, hyperlipidemia, obesity, CLAIRE; on CPAP, paroxysmal atrial fibrillation; previously prescribed apixaban which he has not taken for the past year, dementia; on donepezil, CAD, MRI-compatible PPM, nonrheumatic aortic stenosis; s/p TAVR, nonrheumatic mitral valve stenosis, syncope, asthma depression with anxiety, history of loop recorder (2011), GERD presents to [facility] ER complaining of double vision and unsteady gait. Mr. Jones reports his symptoms began with the abrupt-onset of double vision at 7 PM with a corresponding worsening unsteady gait. He also admits to an associated pressure sensation in his head but he denies changes in his speech or other focal neurologic weakness. He states his double vision is most pronounced when he looks at something directly and looking down. Feels numb both feet since several months. His family reported to the ER physician that he takes full dose ECASA OTC. There is no report of fever, chills, runny nose, sore throat, ear pain, chest pain, palpitations, heart racing, shortness of breath, cough, abdominal pain, nausea, vomiting, diarrhea, dysuria, hematuria, back pain or focal motor neurologic deficits. CTA of the head and neck revealing scattered atherosclerotic calcification without hemodynamically significant stenosis of the anterior and posterior intracranial or extracranial circulation Head CT without contrast revealing no acute intracranial abnormality; no acute infarct, intracranial hemorrhage or extra-axial collection with chronic microvascular ischemia and involutional changes. [facility] Medical History Wears glasses MRSA infection Depression Anxiety Prediabetes Arthritis High cholesterol Heartburn Non-smoker History of echocardiogram History of stress test Cardiology follow-up encounter History of atrial fibrillation Presence of permanent cardiac pacemaker Second degree AV block, Mobitz type I Bradycardia BARRIOS (dyspnea on exertion) COVID-19 (05/30/21) Obstructive sleep apnea Paroxysmal atrial flutter (2011) Nonobstructive atherosclerosis of coronary artery Hemothorax (08/2011) Nonrheumatic mitral (valve) stenosis Paroxysmal atrial fibrillation (2011) Non-rheumatic aortic stenosis Atrial fibrillation and flutter Hyperlipidemia Left bundle branch block Syncope Home Medications ?Medication ?Instructions ?Recorded ?Last Taken ?Type venlafaxine 75 mg tablet 75 mg PO BID mood 11/30/15 06/30/23 History albuterol sulfate 90 mcg/actuation 1 - 2 puff inhalation Q6H PRN PRN 01/13/19 Unknown History aerosol inhaler Wheezing ibuprofen 200 mg capsule 200 mg PO Q6H PRN Pain 11/26/21 Unknown History rosuvastatin 20 mg tablet 10 mg PO DAILY 12/26/22 06/29/23 History losartan 50 mg tablet 50 mg PO DAILY 12/27/22 06/29/23 History donepezil 5 mg tablet 5 mg PO DAILY 04/28/23 06/29/23 History warfarin 4 mg tablet 4 mg PO DAILY #30 tabs 08/28/23 Unknown Rx Held on 08/12/24. Instructions: didn'tagree with him,only took one metoprolol tartrate 50 mg tablet 50 mg PO BID #180 tabs 05/10/24 Unknown Rx omeprazole 20 mg tablet,delayed 40 mg PO DAILY PRN upset stomach 08/12/24 Unknown History release Allergy/AdvReac Type Severity Reaction Status Date / Time No Known Allergies Allergy Verified 08/12/24 21:46 Family History Father CAD (coronary artery disease) Surgical History History of cardiac catheterization History of transcatheter aortic valve replacement (TAVR) (05/13/22) H/O laminectomy (12/11/21) History of nasal septoplasty History of loop recorder (08/21/11) History of electrophysiologic study (08/21/11) H/O hemorrhoidectomy excision lung nodule History of left heart catheterization (03/04/22) Social History Smoking Status: Never smoker alcohol intake: current alcohol intake frequency: holidays/special occasions only substance use type: does not use caffeine: Yes Type: carbonated beverages Number of servings: 1 and tea Number of servings: 1 Vital Signs Vital Signs Vital Signs: 08/12/24 21:41 08/12/24 21:41 08/12/24 21:41 Temperature 98 F 98 F Temperature Source Temporal Temporal Pulse Rate 77 77 75 Pulse Strength Respiratory Rate 18 18 18 Respiratory Effort Respiratory Depth Respiratory Pattern Blood Pressure 172/107 H 172/107 H Blood Pressure Mean 128 128 Blood Pressure Source Blood Pressure Position Blood Pressure Location Pulse Ox 100 100 98 Oxygen Delivery Method Room Air Room Air 08/12/24 21:48 08/12/24 21:54 08/12/24 22:00 Temperature Temperature Source Pulse Rate 81 74 Pulse Strength Respiratory Rate 18 16 Respiratory Effort Respiratory Depth Respiratory Pattern Blood Pressure 145/81 H 138/77 H Blood Pressure Mean 102 97 Blood Pressure Source Blood Pressure Position Blood Pressure Location Pulse Ox 97 98 Oxygen Delivery Method Room Air Room Air Room Air 08/12/24 22:20 08/12/24 22:30 08/12/24 22:30 Temperature Temperature Source Pulse Rate 73 73 72 Pulse Strength Respiratory Rate 17 20 H 17 Respiratory Effort Respiratory Depth Respiratory Pattern Blood Pressure 140/81 H 140/81 H Blood Pressure Mean 100 96 Blood Pressure Source Blood Pressure Position Blood Pressure Location Pulse Ox 98 98 96 Oxygen Delivery Method Room Air 08/12/24 22:45 08/12/24 23:00 08/12/24 23:00 Temperature Temperature Source Pulse Rate 82 75 70 Pulse Strength Respiratory Rate 25 H 20 H 20 H Respiratory Effort Respiratory Depth Respiratory Pattern Blood Pressure 163/72 H 143/72 H Blood Pressure Mean 97 95 Blood Pressure Source Blood Pressure Position Blood Pressure Location Pulse Ox 96 97 96 Oxygen Delivery Method Room Air 08/12/24 23:28 08/12/24 23:30 08/13/24 00:00 Temperature 98.0 F Temperature Source Pulse Rate 84 66 60 Pulse Strength Respiratory Rate 20 H 22 H 20 H Respiratory Effort Respiratory Depth Respiratory Pattern Blood Pressure 132/59 H 154/75 H 149/49 H Blood Pressure Mean 83 101 82 Blood Pressure Source Blood Pressure Position Blood Pressure Location Pulse Ox 95 96 97 Oxygen Delivery Method Room Air 08/13/24 00:00 08/13/24 00:55 08/13/24 00:55 Temperature 98.1 F 98.1 F Temperature Source Oral Oral Pulse Rate 62 62 Pulse Strength Respiratory Rate 18 18 Respiratory Effort Respiratory Depth Respiratory Pattern Blood Pressure 149/49 H 133/86 H 133/86 H Blood Pressure Mean 82 101 101 Blood Pressure Source Monitor Monitor Blood Pressure Position Semi-Fowlers Semi-Fowlers Blood Pressure Location Left Forearm Left Forearm Pulse Ox 98 98 Oxygen Delivery Method Room Air Room Air 08/13/24 01:00 08/13/24 05:00 08/13/24 05:00 Temperature 98.3 F 98.3 F Temperature Source Oral Oral Pulse Rate 60 60 Pulse Strength Respiratory Rate 16 16 Respiratory Effort Normal Non-Labored Respiratory Depth Normal Respiratory Pattern Normal Blood Pressure 148/48 H 148/48 H Blood Pressure Mean 81 81 Blood Pressure Source Monitor Monitor Blood Pressure Position Semi-Fowlers Semi-Fowlers Blood Pressure Location Left Forearm Left Forearm Pulse Ox 94 94 Oxygen Delivery Method Room Air Room Air Room Air 08/13/24 08:33 08/13/24 08:33 08/13/24 09:00 Temperature 98.1 F Temperature Source Temporal Pulse Rate 60 Pulse Strength Normal (2+) Respiratory Rate 18 Respiratory Effort Normal Non-Labored Respiratory Depth Normal Respiratory Pattern Normal Blood Pressure 137/68 H Blood Pressure Mean 91 Blood Pressure Source Monitor Blood Pressure Position Semi-Fowlers Blood Pressure Location Left Forearm Pulse Ox 92 Oxygen Delivery Method Room Air Room Air Weight Weight: 108.5 kg Body Mass Index (BMI) 33.3 NIHSS NIHSS Nursing Documentation NIHSS Nursing Documentation: NIHSS: Ischemic Stroke/TIA Start: 08/13/24 00:32 Text: For PCU Patients: NIH and Neuro Check every 4 Status: Active hours, PRN and with change in RN caregiver. Freq: [id number] Protocol: Activity Type Activity Date Activity User E-sign Co-sign Detail Recorded Client Recorded Date Recorded By Document 08/13/24 09:00 [email or web address] [id number] 08/13/24 11:02 [email or web address] 08/13/24 09:00 NIH Stroke Scale [NIHSS] A score of 0 is normal or asymptomatic . Total possible score is 42. Inpatient: RN or Physician to activate a stroke alert for onset of new stroke symptoms or with NIHSS increase >/= 3 points. Following change in neurological status, NIHSS will be performed per physician order or more frequently PRN. -1a. Level of Consciousness Alert; keenly responsive -1b. LOC Questions Answers BOTH questions correctly. -1c. LOC Commands Performs both tasks correctly . -2. Best Gaze Normal -3. Visual No visual loss -4. Facial Palsy Normal symmetrical movements -5a. Left Arm No drift; arm holds 90 (or 45 ) degrees for full 10 seconds -5b. Right Arm No drift; arm holds 90 (or 45 ) degrees for full 10 seconds -6a. Left Leg No drift; leg holds 30-degree position for full 5 seconds -6b. Right Leg No drift; leg holds 30-degree position for full 5 seconds -7. Limb Ataxia Absent -8. Sensory Normal; no sensory loss -9. Best Language No aphasia; normal -10. Dysarthria Normal -11. Extinction and Inattention No abnormality -Total 0 Query Text:A score of 0 is normal or asymptomatic. Total possible score is 42 . ED: Notify Physician for NIHSS increase by > / = 3 points. Inpatient: RN or Physician to activate a stroke alert for NIHSS increase of > / = 3 points. Coma Scale [Assess] -Eye Opening Spontaneous -Motor Obeys Commands -Verbal Oriented [Total] -Coma Scale Total 15 NIHSS 1a. Level of Consciousness: Alert; keenly responsive 1b. LOC Questions: Answers BOTH questions correctly. 1c. LOC Commands: Performs both tasks correctly. 2. Best Gaze: Normal 3. Visual: No visual loss 4. Facial Palsy: Normal symmetrical movements 5a. Left Arm: No drift; arm holds 90 (or 45) degrees for full 10 seconds 5b. Right Arm: No drift; arm holds 90 (or 45) degrees for full 10 seconds 6a. Left Leg: No drift; leg holds 30-degree position for full 5 seconds 6b. Right Leg: No drift; leg holds 30-degree position for full 5 seconds 7. Limb Ataxia: Absent 8. Sensory: Normal; no sensory loss 9. Best Language: No aphasia; normal 10. Dysarthria: Normal 11. Extinction and Inattention: No abnormality Total: 0 Physical Exam Const alert, oriented x3 and no apparent distress General Appearance: cooperative, comfortable and well kempt HEENT normocephalic Cardio Cardio Narrative: Awake, alert, oriented X3 CN 2-12 intact. ? Skew left eye Motor power 5/5 Sensation: Intact No ataxia Lab / Micro Data 08/12/24 21:50 08/12/24 21:50 Labs: Laboratory Results - last 24 hr 08/12/24 21:45: POC Glucose 139 H 08/12/24 21:50: WBC 9.0, RBC 4.30 L, Hgb 14.0, Hct 41.9, MCV 97.4 H, MCH 32.6 H, MCHC 33.4, RDW Std Deviation 47.4 H, RDW Coeff of Heather 13.2, Plt Count 237, MPV 9.2, Immature Gran % (Auto) 0.200, Neut % (Auto) 53.9, Lymph % (Auto) 33.8, [place] % (Auto) 11.1 H, Eos % (Auto) 0.6, Baso % (Auto) 0.4, Absolute Neuts (auto) 4.8, Absolute Lymphs (auto) 3.04, Nucleated RBC % 0, PT 13.8, INR 1.0, APTT 28.1, Sodium 140, Potassium 4.1, Chloride 101, Carbon Dioxide 27.4, Anion Gap 11, BUN 13, Creatinine 0.89, Estim Creat Clear Calc 86.67, Est GFR (MDRD) Non-Af 89, BUN/Creatinine Ratio 15.1, Glucose 115 H, Calcium 9.0, Troponin T High Sens 25 H 08/13/24 00:07: Troponin T Hi Sens 2 Hr 24 H, Vitamin B12 266, TSH 2.500, Ethyl Alcohol < 10.1 08/13/24 02:53: Hemoglobin A1c 6.6, Troponin T Hi Sens 4Hr 25 H, Triglycerides 80, Cholesterol 132, LDL Cholesterol, Calc 73, VLDL Cholesterol 16, HDL Cholesterol 43, Cholesterol/HDL Ratio 3.07, Serum Folate 7.75 Imaging Radiology Impression Brain CT 08/12/24 21:48 IMPRESSION: No acute intracranial abnormality; no acute infarct, intracranial hemorrhage or extra-axial collection. Chronic microvascular ischemia and involutional changes. IMPRESSION: One or more dose reduction techniques were used (e.g., Automated exposure control, adjustment of the mA and/or kV according to patient size, use of iterative reconstruction technique). Reading Location: [facility] Head/Neck CTA 08/12/24 21:48 IMPRESSION: Scattered atherosclerotic calcification without hemodynamically significant stenosis of the anterior and posterior intracranial or extracranial circulation. One or more dose reduction techniques were used (e.g., Automated exposure control, adjustment of the mA and/or kV according to patient size, use of iterative reconstruction technique). [facility] Chest X-Ray 08/12/24 22:35 IMPRESSION: No acute cardiopulmonary process. Reading Location: [facility] Active Medications Active Medications Active Medications: Current Medications Generic Name Dose Route Start Last Admin Trade Name Freq PRN Reason Stop Dose Admin Acetaminophen 650 mg 08/13/24 00:32 08/13/24 08:41 Acetaminophen 325 Mg Tablet PO 650 mg Q4H PRN PRN Administration Pain 1-10 Or Fever>99.6 Albuterol Sulfate 2.5 mg 08/13/24 00:32 Albuterol 2.5 Mg/3 Ml Vial.Neb. INHALATION Q4H PRN PRN Wheezing Aspirin 81 mg 08/14/24 08:00 Aspirin 81 Mg Tab.Chew PO BREAKFAST OSBALDO Atorvastatin Calcium 20 mg 08/13/24 22:00 Atorvastatin Calcium 20 Mg Tablet PO QHS OSBALDO Donepezil HCl 5 mg 08/13/24 10:00 08/13/24 08:41 Donepezil Hcl 5 Mg Tablet PO 5 mg DAILY OSBALDO Administration Enoxaparin Sodium 40 mg 08/13/24 06:00 08/13/24 05:08 Enoxaparin 40 Mg/0.4 Ml Syringe SC 40 mg DAILY@0600 OSBALDO Administration Sodium Chloride 1,000 mls @ 50 mls/hr 08/13/24 00:22 08/13/24 01:21 IV 08/13/24 20:21 50 mls/hr .Q20H OSBALDO Administration Sodium Chloride 100 mls @ 15 mls/hr 08/13/24 00:49 IV .Q6H40M PRN Saline Flush Sodium Chloride 100 mls @ 15 mls/hr 08/13/24 00:49 IV .Q6H40M PRN Additional IVPB Infusion Nutritional Formula (Lactose Free) 120 ml 08/13/24 08:00 08/13/24 11:39 Ensure Plus High Protein 120 Ml Liquid PO Not Given TIDCM OSBALDO Pantoprazole Sodium 40 mg 08/13/24 00:32 Pantoprazole Sodium 40 Mg Tablet PO DAILY PRN PRN upset stomach Sodium Chloride 10 - 40 ml 08/13/24 00:49 0.9% Saline Lock 10 Ml Syringe IV UD PRN SALINE FLUSH Venlafaxine HCl 75 mg 08/13/24 10:00 08/13/24 08:48 Venlafaxine Hcl 75 Mg Tablet PO 75 mg BID OSBALDO Administration
[2024-08-13] MEDS: LORazepam 0.5 MG Tablet PO (14:24)
--- NOTE | 2024-08-13 15:58 | CHAPLAIN ---
Type of Pastoral Visit _x__ Initial Visit ___ Follow-up Visit ___ On-call Visit ___ General Patient Visit ___ Spiritual Assessment ___ Family Conference ___ Bereavement ___ Rapid Response ___ Code Blue ___ Other (describe below) Pastoral Care Referral From _x__ Patient ___ Family ___ Nurse ___ Physician ___ Outside Sales Professional ___ Rooming House Operator ___ Other (describe below) Sacrament/Intervention _x__ Active listening ___ Anointing ___ Mandaen ___ Bereavement ___ Communion _x__ Carito exploration ___ _x__ Life review _x__ Prayer ___ Reconciliation ___ Sacrament of Sick _x__ Supportive presence ___ Wedding ___ Other (describe below) Pastoral Comments patient opens up quickly about his thinking and questions on the future, his health, his end-of-life possibilities, his carito and where it is now; pt explores what he believes about the after life with this grounds foreman and looks for some clarification; pt becomes honest about his regrets, past, and broken family relationships; pt welcomes prayer and expresses gratitude for the time and conversation
--- NOTE | 2024-08-13 16:02 | CHAPLAIN ---
Type of Pastoral Visit __x_ Initial Visit ___ Follow-up Visit ___ On-call Visit ___ General Patient Visit ___ Spiritual Assessment ___ Family Conference ___ Bereavement ___ Rapid Response ___ Code Blue ___ Other (describe below) Pastoral Care Referral From _x__ Patient ___ Family ___ Nurse ___ Physician ___ Utility Engineer ___ Apple Picking Supervisor ___ Other (describe below) Sacrament/Intervention _x__ Active listening ___ Anointing ___ Christianity ___ Bereavement ___ Communion _x__ Carito exploration ___ _x__ Life review _x__ Prayer ___ Reconciliation ___ Sacrament of Sick ___ Supportive presence ___ Wedding ___ Other (describe below) Pastoral Comments patient is welcoming and talkative; pt expresses his carito and his good upbringing in life; pt will find strength in his carito in God and knows that he will not live a lot longer in this world; pt welcomes presence and prayer and acknowledges appreciation to this vending enterprises supervisor for the visit
--- NOTE | 2024-08-13 16:37 | CASEMGMT ---
Met with patient to complete VALERIO form. VALERIO form explained to patient who voiced understanding and signed form. Original form placed in pt?s chart and copy provided to patient. Lashae Chavez, Discharge Planning Asst
--- NOTE | 2024-08-13 16:49 | PCM.DC ---
Discharge Instructions Diet Discharge Diet: Low fat / Low cholesterol DC O2, CPAP, BIPAP needs Home O2 Discharge instructions: No Dressing / Incision Discharge Activity: Return to Normal Activity Dressing / Incision Call your doctor if you observe: Fever of 101 or Higher, Shortness of breath, Dizziness, Fainting spells, Swelling in the ankles, Chest pain and Increased palpitations (irregular heartbeat) Follow Up Care Test Results: Test results from this visit will be discussed in further detail at your follow-up appointment, if applicable. Discharge Plan Admission Admit Date/Time: 08/13/24 00:12 Attending Provider: Aramis Cho Primary Care Provider: Anthony Reyes Consulting Providers: Randal Noel; Svetlana Faulkner; Arlene Gallagher; Maryse Woodard; Tayler Jarquin; Francisco Amin; Kenzie Campo; Osito Huerta; Vaughn Toledo; Silvano Ruby; Nena Davila; Luis Armando Montiel; Nedra Alvarado; Kev Sy; Vannessa Rolon; Kenn Bravo; Albania Varela; Keshav Munoz; Lacy Warren; Elle Rodriguez; Davon Yousif Discharge Orders/Prescriptions Prescriptions: New aspirin 81 mg Tablet,Chewable 81 mg PO BREAKFAST 30 Days Qty: 30 0RF Continued ibuprofen 200 mg capsule 200 mg PO Q6H PRN (Reason: Pain) rosuvastatin 20 mg tablet 10 mg PO DAILY donepezil 5 mg tablet 5 mg PO DAILY Patient Comments: TAKE 1 TABLET (5 MG) BY MOUTH WITH EVENING MEAL. venlafaxine 75 MG tablet 75 mg PO BID Patient Comments: for drepression/anxiety albuterol sulfate 1 INHALER inhaler 1 - 2 puff inhalation Q6H PRN PRN (Reason: Wheezing) omeprazole 20 mg tablet,delayed release (DR/EC) 40 mg PO DAILY PRN (Reason: upset stomach) losartan 50 mg tablet 50 mg PO DAILY warfarin 4 mg tablet 4 mg PO DAILY Qty: 30 11RF metoprolol tartrate 50 mg tablet 50 mg PO BID Qty: 180 3RF Referrals / Follow Up: [facility] [Outside] - Within 1 Week (diplopia) Anthony Reyes MD [Primary Care Provider] - Within 1 Week Disposition Disposition (needs filled in before D/C Order can be placed): Home, Self Care
--- NOTE | 2024-08-13 17:12 | DS.PCM_ITS ---
Providers Date of Admission: 08/13/24 Primary Care Physician: Dr. Anthony Reyes MD Consultations 08/13/24 00:32 Consult: Tele-Neurology Routine Consulting Provider: [facility] Reason for Consult: Acute Ischemic Stroke/TIA EMERGENT Consult: No MD Notified: Yes Date Notified: 08/13/24 Time Notified: 00:14 Method of Notification: ED Physician Initiated Nursing Unit Staff Notify [facility] of Tele-Neurology Consult: Yes Reason For Visit: DIPLOPIA AND UNSTEADY GAIT WITH TIA VS CVA Diagnosis Discharge Diagnosis (1) CVA (cerebral vascular accident): Status: Acute Code(s): I63.9 - Cerebral infarction, unspecified Qualifiers: CVA mechanism: unspecified Qualified Code(s): I63.9 - Cerebral infarction, unspecified (2) Diplopia: Status: Acute Code(s): H53.2 - Diplopia (3) Unsteady gait: Status: Acute Code(s): R26.81 - Unsteadiness on feet (4) Dementia: Status: Acute Code(s): F03.90 - Unspecified dementia, unspecified severity, without behavioral disturbance, psychotic disturbance, mood disturbance, and anxiety Qualifiers: Dementia type: unspecified type Dementia severity: unspecified severity Dementia behavioral or psychological symptom: without behavioral, psychotic, or mood disturbance or anxiety Qualified Code(s): F03.90 - Unspecified dementia, unspecified severity, without behavioral disturbance, psychotic disturbance, mood disturbance, and anxiety Medications at Discharge Home Medications venlafaxine 75 mg tablet 75 mg PO BID mood 11/30/15 albuterol sulfate 90 mcg/actuation aerosol inhaler 1 - 2 puff inhalation Q6H PRN PRN Wheezing 01/13/19 ibuprofen 200 mg capsule 200 mg PO Q6H PRN Pain 11/26/21 rosuvastatin 20 mg tablet 10 mg PO DAILY 12/26/22 losartan 50 mg tablet 50 mg PO DAILY 12/27/22 donepezil 5 mg tablet 5 mg PO DAILY 04/28/23 warfarin 4 mg tablet 4 mg PO DAILY #30 tabs 08/28/23 metoprolol tartrate 50 mg tablet 50 mg PO BID #180 tabs 05/10/24 omeprazole 20 mg tablet,delayed release 40 mg PO DAILY PRN upset stomach 08/12/24 aspirin 81 mg chewable tablet 81 mg PO BREAKFAST 30 days #30 tabs 08/13/24 Hospital Course Operations None Procedures 2-D Echocardiogram Summary of Care Provided Minutes Spent on Discharge: 35 Hospital Course: Per HPI: RAVIN JONES, is a 78 M with a past medical history of essential hypertension; on losartan and metoprolol, hyperlipidemia; on rosuvastatin, obesity; BMI of 32 this admission, CLAIRE; on CPAP, paroxysmal atrial fibrillation; previously prescribed apixaban which he has not taken for the past year, history of dementia; on donepezil, CAD, history of MRI-compatible PPM, history of nonrheumatic aortic stenosis; s/p TAVR with 26 mm RICK S3 ultra valve (2021), history of nonrheumatic mitral valve stenosis, history of LBBB, history of second-degree AV block; Mobitz type I, history of syncope, history of hemothorax, history of asthma; on as needed albuterol inhaler, history of MRSA infection on abdomen and back (~2019), history of depression with anxiety; on venlafaxine, history of lung nodule; s/p excision, history of nasal septoplasty, history of hemorrhoidectomy, history of loop recorder (2011), GERD; on omeprazole and OA; with history of laminectomy (2021) on as needed ibuprofen every 6 hours who presents to [facility] ER complaining of double vision and unsteady gait. Mr. Jones reports his symptoms began with the abrupt-onset of double vision at 7 PM with a corresponding worsening unsteady gait. He also admits to an associated pressure sensation in his head but he denies changes in his speech or other focal neurologic weakness. He states his double vision is most pronounced when he looks at something directly. He denies a history of CVA or similar previous episodes. His family reported to the ER physician that he takes full dose ECASA OTC. There is no report of fever, chills, runny nose, sore throat, ear pain, chest pain, palpitations, heart racing, shortness of breath, cough, abdominal pain, nausea, vomiting, diarrhea, dysuria, hematuria, back pain or focal motor neurologic deficits. In the ER a 'Stroke Alert' was called shortly after his arrival with CTA of the head and neck revealing scattered atherosclerotic calcification without hemodynamically significant stenosis of the anterior and posterior intracranial or extracranial circulation with his head CT without contrast revealing no acute intracranial abnormality; no acute infarct, intracranial hemorrhage or extra-axial collection with chronic microvascular ischemia and involutional changes. He was then admitted to the PCU under observation status for ongoing care for a stay that is expected to be less than 2 midnights. Hospital Course: 1. Diplopia?78-year-old male presented to the hospital with diplopia, denies any numbness or tingling. Because of the diplopia he was also having an unsteady gait. He thinks that his vision has improved slightly but he still seeing double. His extraocular muscles were intact however he could not accommodate with his left eye so as the finger would approach the tip of his nose his right eye could focus but his left eye would look straight ahead. Could not identify any abnormalities in visual field testing on him and I cannot dilate his pupil to do adequate eye exam today. MRI was negative for any type of acute ischemia and no other intracranial issues were seen. CTA of the head and neck was unremarkable. Echocardiogram was normal with an EF of 65% and no diastolic dysfunction, he does have a history of A-fib so we will continue with his Coumadin of note his INR is 1 maybe an issue with compliance will continue with aspirin while resuming his Coumadin on discharge. I discussed with him the plan for discharge today he expressed understanding of the risks and benefits of going home and would like to go home today if possible. Given his double vision and his blurred vision would recommend follow-up with ophthalmology as an outpatient next week if possible. 2. Essential hypertension, hyperlipidemia, A-fib, GERD, anxiety, depression, mild dementia are all chronic medical conditions which complicate his care. His home medications were continued where appropriate Physical Exam Narrative General: Alert, Oriented x3, Cooperative, No apparent distress HEENT: Atraumatic, PERRLA, EOMI, Normocephalic, left eye cannot accommodate, cannot discern any abnormality in visual field testing Oral: Moist Mucosa Neck: Supple, No JVD Lungs: Diminished, Normal air movement, No rhonchi, No wheeze, No rales Cardiovascular: Regular rate, Regular Rhythm, Normal S1, Normal S2, No murmurs Abdomen: Soft, Non Tender, Non-Distended, No Hepato-splenomegaly Extremities: No edema, Capillary Refill Less than 3 Seconds Skin: No rashes, No breakdown Musculoskeletal: No Tenderness to Palpation of Joints or Extremities Neurological: No focal neurological deficits, Motor Exam 5/5 strength throughout, Sensory exam intact to light touch and pain Psych/Mental Status: Normal Affect, Appropriate Weight / BMI Weight Weight: 239 lb 3.225 oz Body Mass Index (BMI) 33.3 ABG / Lab / Microbiology Data 08/12/24 21:50 08/12/24 21:50 Laboratory: Laboratory Results - last 24 hr 08/12/24 21:45: POC Glucose 139 H 08/12/24 21:50: WBC 9.0, RBC 4.30 L, Hgb 14.0, Hct 41.9, MCV 97.4 H, MCH 32.6 H, MCHC 33.4, RDW Std Deviation 47.4 H, RDW Coeff of Heather 13.2, Plt Count 237, MPV 9.2, Immature Gran % (Auto) 0.200, Neut % (Auto) 53.9, Lymph % (Auto) 33.8, [place] % (Auto) 11.1 H, Eos % (Auto) 0.6, Baso % (Auto) 0.4, Absolute Neuts (auto) 4.8, Absolute Lymphs (auto) 3.04, Nucleated RBC % 0, PT 13.8, INR 1.0, APTT 28.1, Sodium 140, Potassium 4.1, Chloride 101, Carbon Dioxide 27.4, Anion Gap 11, BUN 13, Creatinine 0.89, Estim Creat Clear Calc 86.67, Est GFR (MDRD) Non-Af 89, BUN/Creatinine Ratio 15.1, Glucose 115 H, Calcium 9.0, Troponin T High Sens 25 H 08/13/24 00:07: Troponin T Hi Sens 2 Hr 24 H, Vitamin B12 266, TSH 2.500, Ethyl Alcohol < 10.1 08/13/24 02:53: Hemoglobin A1c 6.6, Troponin T Hi Sens 4Hr 25 H, Triglycerides 80, Cholesterol 132, LDL Cholesterol, Calc 73, VLDL Cholesterol 16, HDL Cholesterol 43, Cholesterol/HDL Ratio 3.07, Serum Folate 7.75 Radiography Diagnostic Testing: Radiology Impression Brain CT 08/12/24 21:48 IMPRESSION: No acute intracranial abnormality; no acute infarct, intracranial hemorrhage or extra-axial collection. Chronic microvascular ischemia and involutional changes. IMPRESSION: One or more dose reduction techniques were used (e.g., Automated exposure control, adjustment of the mA and/or kV according to patient size, use of iterative reconstruction technique). [facility] Head/Neck [facility]A 08/12/24 21:48 IMPRESSION: Scattered atherosclerotic calcification without hemodynamically significant stenosis of the anterior and posterior intracranial or extracranial circulation. One or more dose reduction techniques were used (e.g., Automated exposure control, adjustment of the mA and/or kV according to patient size, use of iterative reconstruction technique). Reading [facility] Chest X-Ray 08/12/24 22:35 IMPRESSION: No acute cardiopulmonary process. Reading Location: [facility] Brain MRI 08/13/24 00:21 IMPRESSION: 1. Incomplete exam due to claustrophobia. 2. No definite evidence of an acute intracranial process. Sequences obtained are sufficient to exclude acute infarct. 3. Left maxillary predominant paranasal sinus disease. Trace mastoid effusions. 4. Additional description as above. Reading Location: [id number] Echocardiogram 08/13/24 00:21 Interpretation Summary The estimated ejection fraction is 65 %. No evidence for diastolic dysfunction. Mildly dilated aortic root. Ordering Physician: Davon Yousif Referring Physician: Anthony Reyes Performed By: Maren Atkins, ELIJAH, RVT D/C Instructions Discharge Diet: Low fat / Low cholesterol Call your doctor if you observe: Fever of 101 or Higher, Shortness of breath, Dizziness, Fainting spells, Swelling in the ankles, Chest pain and Increased palpitations (irregular heartbeat) DC O2, CPAP, BIPAP Needs Home O2 Discharge instructions: No Meaningful Use Info Meaningful Use Meaningful Use Diagnoses (Choose all that apply): None applicable Ischemic Stroke Statin Dosing Therapy Reference: STATIN DOSE THERAPY REFERENCE: * Patients > 75 years receive moderate or high dose statin therapy. * Patients 75 years or YOUNGER should receive HIGH intensity statin dose unless contraindicated. You will be required to document reason for non-treatment if statin daily dose does not meet guidelines. HIGH DOSE STATIN THERAPY DAILY Atorvastatin > than or = to 40 mg Rosuvastatin > than or = to 20 mg Amlodipine + Atorvastatin > than or = to 2.5/40 mg Ezetimibe + Simvastatin 10/80 mg Simvastatin 80mg Discharge Plan Admission Admit Date/Time: 08/13/24 00:12 Attending Provider: Aramis Cho Primary Care Provider: Anthony Reyes Consulting Providers: Randal Noel; Svetlana Faulkner; Arlene Gallagher; Maryse Woodard; Tayler Jarquin; Francisco Amin; Kenzie Campo; Osito Huerta; Vaughn [place]; Silvano Ruby; Nena Davila; Luis Armando Montile; Nedra Alvarado; Kev Sy; Vannessa Rolon; Kenn Bravo; Albania Varela; Keshav Munoz; Lacy Warren; Elle Rodriguez; Davon Yousif Discharge Orders/Prescriptions Prescriptions: New aspirin 81 mg Tablet,Chewable 81 mg PO BREAKFAST 30 Days Qty: 30 0RF Continued ibuprofen 200 mg capsule 200 mg PO Q6H PRN (Reason: Pain) rosuvastatin 20 mg tablet 10 mg PO DAILY donepezil 5 mg tablet 5 mg PO DAILY Patient Comments: TAKE 1 TABLET (5 MG) BY MOUTH WITH EVENING MEAL. venlafaxine 75 MG tablet 75 mg PO BID Patient Comments: for drepression/anxiety albuterol sulfate 1 INHALER inhaler 1 - 2 puff inhalation Q6H PRN PRN (Reason: Wheezing) omeprazole 20 mg tablet,delayed release (DR/EC) 40 mg PO DAILY PRN (Reason: upset stomach) losartan 50 mg tablet 50 mg PO DAILY warfarin 4 mg tablet 4 mg PO DAILY Qty: 30 11RF metoprolol tartrate 50 mg tablet 50 mg PO BID Qty: 180 3RF Referrals / Follow Up: [facility] [Outside] - Within 1 Week (diplopia) Anthony Reyes MD [Primary Care Provider] - Within 1 Week Disposition Disposition (needs filled in before D/C Order can be placed): Home, Self Care Charges/Coding Visit Charges Inpatient E&M: 94715 Disch Hosp >30min
== END 2024-08-13 16:56 | disposition home or self-care (01) ==
LOC: ED 23:24 → PCU 23:55
PROVIDERS: Admitting Provider Internal Medicine; Emergency Provider Emergency Medicine; PCP Family Medicine; Visit Provider Family Medicine
DX: H53.2 Diplopia (principal); F03.90 Unspecified dementia, unspecified severity, without behavioral disturbance, psychotic disturbance, mood disturbance, and anxiety; I48.0 Paroxysmal atrial fibrillation; E78.00 Pure hypercholesterolemia, unspecified; Z68.32 Body mass index [BMI] 32.0-32.9, adult; I10 Essential (primary) hypertension; Z95.0 Presence of cardiac pacemaker; K21.9 Gastro-esophageal reflux disease without esophagitis; F41.9 Anxiety disorder, unspecified; Z91.199 Patient's noncompliance with other medical treatment and regimen due to unspecified reason; R26.81 Unsteadiness on feet; Z79.01 Long term (current) use of anticoagulants; E66.9 Obesity, unspecified; Z79.82 Long term (current) use of aspirin; Z79.899 Other long term (current) drug therapy; G47.33 Obstructive sleep apnea (adult) (pediatric); J45.909 Unspecified asthma, uncomplicated; R91.1 Solitary pulmonary nodule
CPT/HCPCS: 70450; 70496; 70498; 70551; 71045; 80048; 80061; 82077; 82607; 82746; 82962; 83036; 84443; 84484; 85025; 85610; 85730; 92610; 93005; 93306; 93880; 96372; 97162; 97166; 97802; 99221; 99285; Q9957; Q9967; A4216; C8929; G0378

== ENCOUNTER 2024-08-20 12:00 | Outpatient (RCR) | payer MEDICARE, SELFPAY ==
--- NOTE | 2024-08-19 12:58 | HP.OTEVAL ---
Patient's Visit Information Visit Information Visit Information: RAVIN JONES is a 78 year old M, referred to Occupational Therapy by Dr. Aramis Cho MD, with a diagnosis of decreased strength and debility. Date of Evaluation: 08/19/24 Occupational Therapist: Siena Pascual Subjective Subjective: This 78 year old male arrives with dx of debility decreased strength. Pt was just in hospital with blurred vision and LE weakness suspected CVA. Pt does have extensive past medical history including pacemaker, arthritis, atrial fib, second degree AV block, L bundle branch block as well as syncope and falls. Pt reports that he has progressively been getting weak due to lack of doing things on daily basis per choice. Pt denies a change in strength or stability as result of recent hospital visit however does state his balance and stability over time has progressively worsened resulting in a few falls in the past 6 months. Pt also admits to decreased overall endurance which is now impacting his performance in self care/ IADL tasks. Pt states he does have a constant pain along chest region in which OT provided extensive ed on assuring he follows up with his lighthouse keeper. pt denies any strenuous activity that may have caused muscle strain on this area. pt is retired for last 3 years and lives with daughter who has down syndrome. Objective Objective/Observation: baseline HR 65 bpm and 02 96% ROM ROM Comments: all within functional limits Strength Shoulder: L shoulder 15.9# R shoulder 15.4# Elbow: L bicep 26.6# R bicep 24.7# L tricep 25# R 15# Postal Transportation Clerk: L 50# R 60# Lateral Pinch: L 12# R 14# Tripod Pinch: L 10# R 10# Strength Comments: R handed L ER 18# R ER 21# Sensation Sensation Comments: denies issue with UEs states slight numbness of LEs Nine [place] Peg Comments: denies issues Quick DASH-Disab of Arm,Shoulder& Hand Quick DASH Score: 34.0900 Goals Goal:: pt will improve B shoulder strength by 5# or more in order to maximize I in ADL and IADL tasks pt will improve B bicep and tricep strength by 5# or more in order to maximize I in ADL and IADL tasks pt will improve B store management trainee strength by 5# or more in order to maximize I in ADL and IADL tasks pt will improve overall aerobic capacity to task duration of 10-15 min before needing prolonged RB 02 and HR remaining within normal limits Goal:: pt will improve quick dash score by 10 points or more for improved I in BUE function Goal:: pt will demo 100% carryover in established home program by discharge pt will verbalize/ demonstrate 100% accuracy carryover in safety ed and training for home as well as environment to decreased risk for falls Rehabilitation General Assessment: This 78 year old male referred to OT with dx of decreased strength as well as debility. pt does present with decreased sustained aerobic capacity to task as well as decreased overall strength and safety impacting his performance in basic self care and IADL tasks. Pt would benefit from OT services 1x a week for 4-6 weeks in order to establish a home program that pt will complete on own to assure carryover in strength and aerobic capacity as well as to assure safety and decrease risk for future falls. Rehabilitation Potential: Fair Anticipated Interventions Anticipated Interventions: Strengthening, Joint Protection/Energy Conservation, Education re assistive Equipment, Education re Diagnosis and Home Program Visit Plan Frequency: 1x/Week Duration: 4-6 Weeks General Plan: establish home program custom to pt motivation to assure carryover in completion pts heart rate as well as 02 need monitored throughout session TEXT: Thank you for the opportunity to evaluate your patient. For Medicare and Medicare HMO plans, please review the plan of care and approve it. It will need to be FAXED BACK to us at [phone] for Medicare purposes. Please let me know if there are questions or concerns regarding this plan of care. Physician Signature: Date:
--- NOTE | 2024-08-20 13:04 | HP.PTEVAL ---
Patient's Visit Information Visit Information Visit Information: RAVIN JONES is a 78 year old M referred to Physical Therapy by Dr. Aramis Cho MD with a diagnosis of unstady gait, decreased strength. Date of Evaluation: 08/20/24 Physical Therapist: Mickey Philippe, DPT, OCS, CSCS Visit Plan Frequency: 2x /Week Duration: 4-6 Weeks Plan: 2x/week for 4 weeks for: 1. general and LE ex progression to HEp with list. 2. weight shifting xercise emphasize FW, funcitonally with chair xit, and step ups to I. monitor fatigue level. IE: educated on ex as being his treatment for sedentarism and fci exit strategy , also on safety and benefits of increased activity, also on need to visit ER if SOB gets worse and to prioritize his patient access specialist appointment Subjective Subjective: Had stroke last Friday(they think it was a stroke), was seeing double looking magazine and went to hospital and MRI and scan were OK. Been to eye doctor and nothing needed. Double vision for 3 days was the only symptom. Mostly back to baseline now but has been harder to get out of chair and getting less stable. Had a fall coming out of [employer] and tripping stepping down wrong off curb and stumbled and skinned up knees. Lives with Downs syndrome DTR. She works. Basic ADLs are no problem. Activities: scrapbooking with hunting animals. No regular exercises. Not employed. will see patient access specialist referred from PCP. Has walker but does not use it. Objective Objective: Walks into PT slow but steady, neurapothy in his gait pattern avoiding FW weight shift and pushoff. Steady. Good standing balance. FGA without AD today. Lumbar ROM is mod limited in ext and flexion and min in SB, hesitant to shift weight. walked 200 feet today before needing to sit down and rest due to SOB feeling. he says they checked this out in the hospital. LE AROM WFL but HS max tight at -45 90/90, quad min tight. reflexes 1/3 patella and achilles Sensation LE seems diminished in B feet to gross light touch. Has rdness looking fungal on his B feet which he will talk to doctor about. Has good pulse pdally B LE. 96 spO2 and 92 HR after ambulation today which made him very tired SOB which is normal for him over the last 4 months and has appointment with patient access specialist. coordination to reciprocal toe and heel tap is poor. Ovrall mobility is funcitonal but he admittedly does not like ex but is willing to commit. Balance/Special Test Scores Functional Gait Assessment Score: 22 % Disability: 26.6700 CATSIB Score (Max score 120 seconds): 100 Lower Extremity Functional Score: 40 TUG Test Time Seconds: 9 30 Second Chair Rise Test Seconds: 6 Goals Goal 1:: I appropriate HEP for weight shifts, LE strength adn general strength adn LE stretching to limit future problems Goal Time Frame: 4-6 Weeks Goal 2:: Pt feel 50% better in ovrall mobility Goal Time Frame: 4-6 Weeks Goal 3:: 25 on FGA to limit fall risk Goal Time Frame: 4-6 Weeks Goal 4:: LEFS score 50 Goal Time Frame: 4-6 Weeks Rehabilitation Potential Physical Therapy Diagnosis: imbalance and diminished strength partly due to sedentarism. Rehabilitation Potential: Fair Anticipated Interventions Patient/Client Instruction: Educate patient on: Condition and Plan of Care For the Purpose of:: To improve nutrient delivery to tissue, To improve muscle performance and motor function, To increase tolerance to activity/condition/position, To improve ability of physical actions for home/community/work/leisure and To improve gait and locomotor functions Therapeutic Exercise to Include: Strength training, Balance training, Postural training and Flexibilty training For the Purpose of:: To improve nutrient delivery to tissue, To improve muscle performance and motor function, To increase tolerance to activity/condition/position, To improve ability of physical actions for home/community/work/leisure and To improve gait and locomotor functions Text: Thank you for the opportunity to evaluate your patient. For Medicare and Medicare HMO plans, please review the plan of care and approve it. It will need to be FAXED BACK to us at [phone] for Medicare purposes. For Medicare only, by signing this I certify the plan of care. Please let me know if there are questions or concerns regarding this plan of care. Physician Signature: Date:
--- NOTE | 2024-10-07 16:13 | HP.PT.NRP ---
Patient Information Patient Information: RAVIN JONES was seen in my office for initial evaluation on 08/20/24. The following Plan of Care was established for this patient: POC Established Initial Frequency: 2x /Week Initial Duration: 4-6 Weeks Anticipated Interventions Patient/Client Instruction: Educate patient on: Condition and Plan of Care For the Purpose of:: To improve nutrient delivery to tissue, To improve muscle performance and motor function, To increase tolerance to activity/condition/position, To improve ability of physical actions for home/community/work/leisure and To improve gait and locomotor functions Therapeutic Exercise to Include: Strength training, Balance training, Postural training and Flexibilty training For the Purpose of:: To improve nutrient delivery to tissue, To improve muscle performance and motor function, To increase tolerance to activity/condition/position, To improve ability of physical actions for home/community/work/leisure and To improve gait and locomotor functions Last Seen Last Seen: This patient was last seen in our office 08/20/24. Pertinent comments regarding their Physical therapy will appear below: Pt seen for IE and POC established. HE did not schedule or attend any visits after that. It has been over 6 weeks and I will discontinue from my care At this point I will be discontinuing this patient from physical therapy. I would be happy to see this patient again in the future if found appropriate by the physician. Thank you! Mickey Philippe, DPT, OCS, CSCS Balance/Gait/Functional tests Balance/Special Test Scores Functional Gait Assessment Score: 22 % Disability: 26.6700 CATSIB Score (Max score 120 seconds): 100 Lower Extremity Functional Score: 40 TUG Test Time Seconds: 9 Tug Test: <10 sec.=free mobile 30 Second Chair Rise Test Seconds: 6
== END 2024-08-20 19:00 | disposition home or self-care (01) ==
LOC: PT 12:00
PROVIDERS: PCP Family Medicine; Referring Provider Family Medicine; Visit Provider Family Medicine
DX: R53.1 Weakness (principal); R26.81 Unsteadiness on feet; R13.12 Dysphagia, oropharyngeal phase
CPT/HCPCS: 97110; 97162; 97166

== ENCOUNTER → 2024-09-17 | Outpatient (CLI) | payer MEDICARE, SELFPAY ==
[2024-09-17 15:32] LABS: Bacteria 0 SEEN /hpf (None Seen)
[2024-09-17 17:43] LABS: Absolute Lymphocyte Count 2.85 X10^3/uL (0.83-4.51); Absolute Neutrophil Count 3.2 X10^3/uL (2.0-7.7); Basophil# 0.03 X10^3/uL; Basophil% 0.4 % (0-1); Eosinophil# 0.07 X10^3/uL; Hematocrit 38.8 % (40-54); Hemoglobin 13.1 g/dL (13.0-16.5); Lymphocyte # 2.85 X10^3/ul (0.83-4.51); Lymphocyte % 41.8 % (19-41); Mean Corp Hgb Conc 33.8 g/dL (32-36); Mean Corpuscular Volume 94.6 fL (80-94); Mean Platelet Vol. 9.6 fl (6.2-12.0); Monocyte# 0.63 X10^3/uL; Monocyte% 9.2 % (0-10); NRBC Flagged by Analyzer 0 % (0-5); Neutrophil # 3.22 X10^3/uL (2.7-7.7); Neutrophil % 47.3 % (47-70); Platelet Count 223 K/mm3 (150-450); RBC Distribution Width CV 12.3 % (11.6-14.6); RBC Distribution Width SD 42.6 fl (35.1-43.9); White Blood Count 6.8 K/mm3 (4.4-11.0)
[2024-09-17 18:27] LABS: AST(SGOT) 25 U/L (<=37); Alanine Aminotransfer ALT/SGPT 18 U/L (<=46); Albumin, Serum 3.5 g/dL (3.4-4.8); Alkaline Phosphatase 98 U/L (40-129); Anion Gap 12 (5-15); BUN 9 mg/dL (4-19); BUN/Creat Ratio 11.6 RATIO (10-20); Calcium,Total 8.9 mg/dL (7.6-11.0); Carbon Dioxide 22.1 mmol/L (21.0-32.0); Chloride 102 mmol/L (98-108); Cholesterol 137 mg/dL (<=200); Creatinine, Serum 0.81 mg/dL (0.70-1.20); EST Glomerular Filtration Rate 91 (>60); Globulin 3.7 g/dL (2.2-4.2); Glucose 150 mg/dL (70-99); High Density Lipoprotein 43 mg/dL; Low Density Lipoprotein Calc. 73 mg/dL; Protein, Total 7.2 g/dL (5.9-8.4); Sodium Level 136 mmol/L (133-145); Total Bilirubin 0.47 mg/dL (0.00-1.30); Triglycerides 105 mg/dL; Very Low Density Lipoprotein 21 mg/dL (5-40); cholesterol:hdl ratio screen 3.16
[2024-09-17 19:08] LABS: Hemoglobin A1c 6.3 % (<=5.6)
[2024-09-17 19:20] LABS: Color, Urine Yellow (Yellow); Glucose, Dipstick Normal (Normal); Ketone-Dipstick Negative (Negative); Leukocyte Esterase-Dipstick Negative /ul (Negative); Nitrite-Dipstick Negative (Negative); Occult Blood-Urine 150 /ul (Negative); Protein-Dipstick 15 mg/dl (Negative); Urine Bilirubin Dipstick Negative (Negative); Urine Clarity Clear (Clear); Urine Urobilinogen Normal (Normal)
[2024-09-17 19:40] LABS: White Blood Cells 0-5 SEEN /hpf (0-5)
[2024-09-17 19:41] LABS: Mucous, Urine 1+ /hpf (<or=2+); Red Blood Cells-Urine 5-10 SEEN /hpf (0-5); Squamous Epithelial Cells - UA 0-5 SEEN /hpf (0-5)
[2024-09-17 20:15] LABS: Microalbumin,Random Urine < 12.0 mg/L (NO RANGE EST.); Microalbumin:Creatinine Ratio UNABLE TO CALCULATE mg/g CRE
== END | disposition home or self-care (01) ==
LOC: MFPLAB 15:28
PROVIDERS: PCP Family Medicine; Referring Provider Family Medicine; Visit Provider Family Medicine
DX: E11.8 Type 2 diabetes mellitus with unspecified complications (principal); I48.91 Unspecified atrial fibrillation
CPT/HCPCS: 36415; 80053; 80061; 81001; 82043; 82570; 83036; 83735; 85025

== ENCOUNTER → 2024-11-17 | Outpatient (CLI) | payer MEDICARE, SELFPAY ==
[2024-11-17 10:49] LABS: Absolute Lymphocyte Count 3.78 X10^3/uL (0.83-4.51); Absolute Neutrophil Count 3.6 X10^3/uL (2.0-7.7); Basophil# 0.05 X10^3/uL; Basophil% 0.6 % (0-1); Eosinophil# 0.08 X10^3/uL; Eosinophils% 0.9 % (0-5); Hematocrit 42.7 % (40-54); Lymphocyte # 3.78 X10^3/ul (0.83-4.51); Lymphocyte % 44.4 % (19-41); Mean Corp Hgb Conc 32.8 g/dL (32-36); Mean Corpuscular Hgb 30.9 pg (27.0-32.0); Mean Corpuscular Volume 94.3 fL (80-94); Mean Platelet Vol. 10.4 fl (6.2-12.0); Monocyte# 0.96 X10^3/uL; Monocyte% 11.3 % (0-10); NRBC Flagged by Analyzer 0 % (0-5); Neutrophil # 3.61 X10^3/uL (2.7-7.7); Neutrophil % 42.4 % (47-70); Platelet Count 175 K/mm3 (150-450); RBC Distribution Width CV 13.4 % (11.6-14.6); RBC Distribution Width SD 46.2 fl (35.1-43.9); Red Blood Count 4.53 M/mm3 (4.6-6.2); White Blood Count 8.5 K/mm3 (4.4-11.0)
[2024-11-17 11:10] LABS: ALB/GLOB Ratio 1.1 RATIO (0.9-2.4); AST(SGOT) 24 U/L (<=37); Alanine Aminotransfer ALT/SGPT 19 U/L (<=46); Albumin, Serum 3.9 g/dL (3.4-4.8); Alkaline Phosphatase 99 U/L (40-129); Anion Gap 10 (5-15); BUN 14 mg/dL (4-19); BUN/Creat Ratio 15.9 RATIO (10-20); Calcium,Total 9.2 mg/dL (7.6-11.0); Carbon Dioxide 24.1 mmol/L (21.0-32.0); Chloride 104 mmol/L (98-108); Creatinine, Serum 0.86 mg/dL (0.70-1.20); EST Glomerular Filtration Rate 89 (>60); Globulin 3.5 g/dL (2.2-4.2); Glucose 133 mg/dL (70-99); Potassium 4.4 mmol/L (3.3-5.1); Protein, Total 7.3 g/dL (5.9-8.4); Sodium Level 139 mmol/L (133-145); Total Bilirubin 0.85 mg/dL (0.00-1.30)
== END | disposition home or self-care (01) ==
LOC: MFPLAB 09:20
PROVIDERS: PCP Family Medicine
DX: R10.31 Right lower quadrant pain (principal)
CPT/HCPCS: 36415; 80053; 85025

== ENCOUNTER → 2024-11-17 | Outpatient (CLI) | payer MEDICARE, SELFPAY ==
--- NOTE | 2024-11-17 15:05 | CT_ITS ---
PROCEDURE: ABDOMEN/PELVIS WITH CONTRAST 11/17/2024 REASON FOR EXAM: RLQ ABD PAIN TECHNIQUE: ABDOMEN/PELVIS WITH CONTRAST. Coronal and Sagittal reconstruction series were provided. ORAL CONTRAST TYPE: None. AMOUNT: mL CONTRAST: Isovue-300 VOLUME: 93 mL One or more dose reduction techniques were used (e.g., Automated exposure control, adjustment of the mA and/or kV according to patient size, use of iterative reconstruction technique. RADIATION DOSE SUMMARY: DLP: 1285.56 MGycm COMPARISON: 09/21/2020 CT. FINDINGS: Aortic valve prosthesis partially visualized ICD leads. The peripheral soft tissues are unremarkable. Degenerative changes of the spine. Similar moderate superior endplate compression of L4. Degenerative changes of the sacroiliac joints. Osseous demineralization. Moderate atherosclerosis. Normal caliber abdominal aorta. No lymphadenopathy. Hypodense liver suggestive of steatosis. Cholelithiasis without surrounding inflammatory changes. Mild fatty infiltration of the pancreas. The spleen and adrenals are unremarkable. Symmetric enhancement of the bilateral kidneys. No hydroureteronephrosis. The urinary bladder is unremarkable. Unremarkable prostate. A few scattered colonic diverticuli. No surrounding inflammatory changes. No CT evidence of acute appendicitis. CT/Abdomen/Pelvis WITH Contrast IMPRESSION: No acute abnormalities of the abdomen or pelvis. Reading Location: [place] [id number]
== END | disposition home or self-care (01) ==
PROVIDERS: PCP Family Medicine
DX: R10.31 Right lower quadrant pain (principal)
CPT/HCPCS: 74177; Q9967

== ENCOUNTER → 2025-05-17 | Outpatient (CLI) | payer MEDICARE, SELFPAY ==
[2025-05-17 14:14] LABS: Mucous, Urine 0 SEEN /hpf (<or=2+); Red Blood Cells-Urine 0 SEEN /hpf (0-5)
[2025-05-17 17:50] LABS: Hematocrit 43.0 % (40-54); Hemoglobin 14.0 g/dL (13.0-16.5); Immature Granulocytes Count 0.010 X10^3/uL (0.0-0.0); Mean Corp Hgb Conc 32.6 g/dL (32-36); Mean Corpuscular Volume 96.2 fL (80-94); Mean Platelet Vol. 10.5 fl (6.2-12.0); NRBC Flagged by Analyzer 0 % (0-5); Platelet Count 183 K/mm3 (150-450); RBC Distribution Width CV 12.8 % (11.6-14.6); RBC Distribution Width SD 45.1 fl (35.1-43.9); Red Blood Count 4.47 M/mm3 (4.6-6.2); White Blood Count 8.0 K/mm3 (4.4-11.0)
[2025-05-17 17:51] LABS: Color, Urine Straw (Yellow); Glucose, Dipstick Normal (Normal); Ketone-Dipstick Negative (Negative); Leukocyte Esterase-Dipstick Negative /ul (Negative); Nitrite-Dipstick Negative (Negative); Occult Blood-Urine Negative /ul (Negative); Protein-Dipstick Negative (Negative); Specific Gravity, Urine 1.010 (1.002-1.030); Urine Bilirubin Dipstick Negative (Negative)
[2025-05-17 18:03] LABS: Creatinine, Urine (random) 60.80 mg/dL (39.00-259.00); Microalbumin,Random Urine < 12.0 mg/L (<20 mg/L)
[2025-05-17 18:04] LABS: AST(SGOT) 28 U/L (<=37); Alanine Aminotransfer ALT/SGPT 22 U/L (<=46); Albumin, Serum 3.6 g/dL (3.4-4.8); Alkaline Phosphatase 113 U/L (40-129); Anion Gap 11 (5-15); BUN 10 mg/dL (4-19); BUN/Creat Ratio 12.1 RATIO (10-20); Calcium,Total 8.8 mg/dL (7.6-11.0); Carbon Dioxide 25.4 mmol/L (21.0-32.0); Chloride 102 mmol/L (98-108); Cholesterol 207 mg/dL (<=200); Globulin 3.6 g/dL (2.2-4.2); Glucose 133 mg/dL (70-99); Low Density Lipoprotein Calc. 150 mg/dL; Magnesium 2.1 mg/dL (1.5-2.2); Potassium 3.9 mmol/L (3.3-5.1); Triglycerides 108 mg/dL; Very Low Density Lipoprotein 22 mg/dL (5-40); cholesterol:hdl ratio screen 5.55
[2025-05-17 18:25] LABS: Squamous Epithelial Cells - UA 0-5 SEEN /hpf (0-5)
== END | disposition home or self-care (01) ==
LOC: MTLAB 14:07
PROVIDERS: PCP Family Medicine; Referring Provider Family Medicine; Visit Provider Family Medicine
DX: E11.8 Type 2 diabetes mellitus with unspecified complications (principal); I48.91 Unspecified atrial fibrillation
CPT/HCPCS: 36415; 80053; 80061; 81001; 82043; 82570; 83036; 83735; 85025